=== PATIENT | female | born 1985 | race Caucasian/White ===

== ENCOUNTER 2019-12-14 10:15 | Emergency (ER) | payer OTHER ==
[~2019-12-14] VITALS: Ht 165.1 cm; Wt 65.3 kg
[2019-12-14] MEDS ORDERED: KETOROLAC TROMETHAMINE 30 MG/ML VIAL IV STA (11:03)
[2019-12-14] MEDS ORDERED: KETOROLAC TROMETHAMINE 30 MG/ML VIAL ONE (11:17)
--- NOTE | 2019-12-14 11:23 | Diagnostic Imaging Report ---
EXAMINATION: PA and lateral views of the chest. COMPARISON: None CLINICAL HISTORY: Chest pain DISCUSSION: The lungs are well inflated. No focal airspace consolidation, pleural effusion, or pneumothorax. Cardiomediastinal contour and pulmonary vasculature are within normal limits. No acute osseous abnormalities. IMPRESSION: No acute cardiopulmonary abnormalities. Signed by: Dr. Ernie Irving M.D. on 12/14/2019 11:20 AM
--- NOTE | 2019-12-14 12:22 | Emergency Department Note ---
History of Present Illnes History of Present Illness Chief Complaint: Chest Pain History of Present Illness This is a 34 year old female, history of gastric bypass, who presents with onse t of midsternal chest pain that started last night. She describes the pain as feeling "like someone is pushing in on her chest." She states that it's intermittent, last for 10- 15 minutes, and then resolves. She's also noted a "burning sensation" in the left upper back area. There is no pleuritic chest pain. She denies palpitations, cough, or shortness of breath. She states she has felt a bit lightheaded, and had some nausea last night. She denies current nausea. She also denies any current upper respiratory symptoms including no cough, nasal congestion, runny nose, vomiting, diarrhea, or abdominal pain. Patient has no personal or family history of heart disease Historian: Patient Arrival Mode: Car Past Medical/Family History Physician Review I have reviewed the patient's past medical and family history. Any updates have been documented here. Past Medical History Recent Fever: No Clinical Suspicion of Infectio: Yes New/Unexplained Change in Ment: No Past Medical History: None, Anemia Past Surgical History: Bariatric Surgery Other Surgery: gastric bypass - 07/2018 Transfusion of PRBCs - 4 units in 07/2018, due to "complications from gastric bypass surgery. Social History Smoking Cessation: Never Smoker Counseling Performed: No Alcohol Use: None Any Illegal Drug Use: No TB Exposure/Symptoms: No Physically hurt or threatened: No Family History Family history of heart diseas: No Other Any Pre-Existing Lines (PICC,: No Is patient up to date on immun: No Review of Systems Review of Systems Constitutional: Reports malaise; Denies chills, Denies fever EENTM: Reports other (loss of sense of taste and smell x 5 days) Cardiovascular: Reports chest pain; Denies palpitations Respiratory: Denies chest congestion, Denies cough, Denies pain with cough, Denies dyspnea, Denies dyspnea on exertion Gastrointestinal: Reports no symptoms; Denies abdominal pain, Denies nausea, Denies vomiting Genitourinary: Reports no symptoms Musculoskeletal: Reports muscle pain (myalgias x 6 days;) Integumentary: Reports no symptoms Neurological: Reports headache (mild, intermittent x 6 days;) Psychological: Reports no symptoms Endocrine: Reports no symptoms Hematological/Lymphatic: Reports no symptoms Review of other systems: All other systems negative Physical Exam Related Data Allergies: Coded Allergies: No Known Allergies (Unverified , 12/14/19) Vital signs reviewed: Yes Physical Exam CONSTITUTIONAL Constitutional: Present well-developed, Present well-nourished, Present other (pale appearing); Absent distressed, Absent ill appearing HENT HENT: Present normocephalic, Present atraumatic, Present oropharynx clear/moist, Present nose normal HENT L/R: Present left ext ear normal, Present right ext ear normal EYES Eyes: Reports PERRL, Reports conjunctivae normal NECK Neck: Present ROM normal; Absent cervical adenopathy PULMONARY Pulmonary: Present effort normal, Present breath sounds normal; Absent rhonchi CARDIOVASCULAR Cardiovascular: Present regular rhythm, Present heart sounds normal, Present capillary refill normal, Present normal rate; Absent murmur GASTROINTESTINAL Abdominal: Present soft, Present nontender, Present bowel sounds normal GENITOURINARY Genitourinary: Present exam deferred SKIN Skin: Present warm, Present dry MUSCULOSKELETAL Musculoskeletal: Present ROM normal NEUROLOGICAL Neurological: Present alert, Present oriented x 3, Present no gross motor or sensory deficits PSYCHOLOGICAL Psychological: Present mood/affect normal, Present judgement normal Results Laboratory Laboratory CBC - WBC - 1.8, H/H 10.3/31.9, plt = 148,; repeated x 2; sample sent to the [facility] to run and verify. Repeat CBC = WBC = 1.57, H/H = 10/32.4, plt = 166, Neut = 40.7, ANC = 643; Cardiacs - nl [place] - nl except for K+ = 3.2; Hepatic - nl except for AST = 43; Flu A/B - negative; UA - negative; UPT - negative; Lab results reviewed: Yes Imaging Imaging results reviewed: Yes Impressions [place] [id number] Patient Name: DEBBIE SANZ MR #: [id number] : 1985 Age/Sex: 34/F Req #: [id number] Adm Physician: Ordered by: FARHAN JAMA MD Report #: [id number] Location: [facility] Room/Bed: Procedure: [id number] HOPD/CXR 2 VIEW - HOPD Exam Date: 12/14/19 Exam Time: 1100 REPORT STATUS: Signed EXAMINATION: PA and lateral views of the chest. COMPARISON: None CLINICAL HISTORY: Chest pain DISCUSSION: The lungs are well inflated. No focal airspace consolidation, pleural effusion, or pneumothorax. Cardiomediastinal contour and pulmonary vasculature are within normal limits. No acute osseous abnormalities. IMPRESSION: No acute cardiopulmonary abnormalities. Signed by: Dr. Ronald Gallo M.D. on 12/14/2019 11:20 AM Dictated By: RONALD GALLO MD 1120 Transcribed By: GREG on 12/14/19 1120 COPY TO: FARHAN JAMA MD~ Diagnostics Tests Diagnostic test(s) reviewed: Yes Procedures 12 Lead ECG Interpretation ECG Interpretation : ECG: ECG 1 Quality And Reliability Engineer: Interpreted by ED physician Date: Dec 14, 2019 Time: 10:21 Prior ECG tracings: reviewed Rhythm: sinus rhythm Rate: normal QRS axis: normal ST segments normal: Yes T waves normal: No T waves flattening: III, V2, V3 Clinical Impression: abnormal ECG Assessment & Plan Medical Decision Making MDM - Chest pain resolved with Toradol, and cardiac workup negative. Patient's HEART score was 1, so she is at low risk of MACE. Pain is also reproducible. We'll treat with naproxen, if tolerated. - Discussed the patient, at length, that she has a low white blood cell count, likely due to Covid 19 infection. A Covid test was done and pending. She is not neutropenic, but explained that she is at increased risk of developing a secondary infection, in addition to the probable Covid infection. Stressed the importance of having her blood work repeated, once her symptoms have completely resolved for at least 72 hours, and 10 days from the onset of symptoms. Patient strongly encouraged self quarantine to stay away from all others, as much as possible until she has been symptom free for at least 72 hours. Patient voiced understanding of the plan. Drink plenty of water, with a goal of at least 8 bottles/day. Take the Naproxen, as needed, for the muscular pain in your chest and back. Discontinue this medication, if you develop pain in your stomach, while taking. Take with food. Follow-up with your doctor in 10 - 14 days, or whenever you have been at least 72 hours/3 days without ANY symptoms, to have your blood work re-checked (CBC, to check WBC count and anemia). *You Potassium was a bit low, so try and increase "Potassium Rich" foods in your diet. Return to the ER, if you develop shortness of breath or difficulty breathing. Assessment & Plan Final Impression: (1) Suspected COVID-19 virus infection (2) Chest pain, musculoskeletal (3) Acute viral syndrome (4) Leukopenia (5) Anemia Depart Disposition: HOME, SELF-skilled nursing Meds Active Scripts Naproxen (NAPROXEN) 250 Mg Tablet, 500 MG PO BID PRN for pain, #30 TAB 0 Refills Take with food. Prov:FARHAN JAMA MD 12/14/19 Medications in the ED Ketorolac Tromethamine 30 mg ONCE STAT IV Last administered on 12/14/19at 11:14; Admin Dose 30 MG; Start 12/14/19 at 11:03; Stop 12/14/19 at 11:05; Status DC Ketorolac Tromethamine 30 mg STK-MED ONCE .ROUTE ; Start 12/14/19 at 11:17; Stop 12/14/19 at 11:13; Status DC FARHAN JAMA MD Dec 14, 2019 12:22
[2019-12-14 12:29] LABS: HEMATOCRIT 32.4 % (34.2-44.1); LYMPHOCYTES # (AUTO) 0.8 (1.0-3.2); LYMPHOCYTES % 52.9 % (18.0-39.1); MEAN CORPUSCULAR HEMOGLOBIN 24.6 pg (28-32); MEAN CORPUSCULAR HGB CONC 30.9 g/dL (31-35); MEAN CORPUSCULAR VOLUME 79.6 fL (81-99); MONOCYTES # (AUTO) 0.1 (0.2-0.8); MONOCYTES % 6.4 % (4.4-11.3); NEUTROPHILS # (AUTO) 0.6 (2.1-6.9); NEUTROPHILS % 40.7 % (38.7-80.0); PLATELET COUNT 166 x10e3/uL (140-360); RED BLOOD COUNT 4.07 x10e6/uL (3.6-5.1); RED CELL DISTRIBUTION WIDTH 15.4 % (11.7-14.4)
[2019-12-14] MEDS ORDERED: NAPROXEN250 MG PO (12:32)
[2019-12-14 13:05] VITALS: BP 140/95
[2019-12-14 13:15] LABS: LYMPHOCYTES % (MANUAL) 50 % (19-48); MONOCYTES % (MANUAL) 8 % (3.4-9.0); NEUTROPHILS % (MANUAL) 42 % (40-74)
== END 2019-12-14 12:58 | disposition home or self-care (01) ==
LOC: FSED 11:20
DX: B34.9 Viral infection, unspecified (principal); R07.89 Other chest pain; D72.819 Decreased white blood cell count, unspecified; D64.9 Anemia, unspecified; Z98.84 Bariatric surgery status
CPT/HCPCS: 36415; 71046; 80048; 80076; 81003; 81025; 82553; 84484; 85025; 87400; 93005; 99284; J1885; U0002

== ENCOUNTER 2019-12-24 00:39 | Inpatient (IN) | payer OTHER ==
[~2019-12-24] VITALS: Ht 165.1 cm; Wt 65.3 kg
[~2019-12-24 00:39] MED LIST: NAPROXEN250 MG PO
[2019-12-24] MEDS ORDERED: PANTOPRAZOLE 40 MG 10ML VIAL IV STA (01:08)
[2019-12-24] MEDS ORDERED: ONDANSETRON HCL INJ 2MG/ML 2ML 2 MG/ML VIAL IV STA (01:08)
[2019-12-24] MEDS ORDERED: DICYCLOMINE HCL 20 MG/2 ML VIAL IM ONE (01:15)
[2019-12-24 01:26] LABS: BASOPHILS % 0.2 % (0.0-1.0); EOSINOPHILS % 0.4 % (0.0-6.0); HEMATOCRIT 34.5 % (34.2-44.1); HEMOGLOBIN 10.4 g/dL (12.0-16.0); LYMPHOCYTES # (AUTO) 1.7 (1.0-3.2); MEAN CORPUSCULAR HEMOGLOBIN 24.4 pg (28-32); MEAN CORPUSCULAR HGB CONC 30.1 g/dL (31-35); MEAN CORPUSCULAR VOLUME 80.8 fL (81-99); MONOCYTES # (AUTO) 0.4 (0.2-0.8); MONOCYTES % 6.3 % (4.4-11.3); NEUTROPHILS # (AUTO) 3.6 (2.1-6.9); NEUTROPHILS % 63.6 % (38.7-80.0); PLATELET COUNT 198 x10e3/uL (140-360); RED BLOOD COUNT 4.27 x10e6/uL (3.6-5.1); RED CELL DISTRIBUTION WIDTH 14.9 % (11.7-14.4)
[2019-12-24 01:42] LABS: AMYLASE 127 U/L (25-125); LIPASE 128 U/L (8-78)
[2019-12-24 01:45] LABS: ALANINE AMINOTRANSFERASE 96 IU/L (0-55); ALBUMIN 3.5 g/dL (3.5-5.0); ALKALINE PHOSPHATASE 127 IU/L (40-150); ANION GAP 10.9 mmol/L (8-16); BLOOD UREA NITROGEN 9 mg/dL (7-26); BUN/CREATININE RATIO 12 (6-25); CALCIUM 8.5 mg/dL (8.4-10.2); CARBON DIOXIDE 25 mmol/L (22-29); CHLORIDE 108 mmol/L (98-107); CREATININE, SERUM 0.75 mg/dL (0.57-1.11); EST GLOMERULAR FILTRATION RATE > 60 ML/MIN (60-); GLUCOSE 92 mg/dL (74-118); POTASSIUM 3.9 mmol/L (3.5-5.1); SODIUM 140 mmol/L (136-145)
[2019-12-24] MEDS ORDERED: MORPHINE SULFATE INJ 4 MG/ML INJ 1ML IV ONE (02:15)
[2019-12-24] MEDS ORDERED: SODIUM CHLORIDE 0.9% 1000ML 1,000 ML IV ONE (02:15)
--- NOTE | 2019-12-24 02:32 | Emergency Department Note ---
History of Present Illnes History of Present Illness Chief Complaint: Abdominal Complaints History of Present Illness This is a 34 year old female RUQ pain that started about 30 minutes ago. Patient states she ate a taco earlier today. Patient also states she had diarrhea prior to arrival.. Historian: Patient Arrival Mode: Car Onset (how long ago): hour(s) (1) Location: RUQ PAIN Quality: PAIN Radiation: Reports back Severity: moderate Onset quality: sudden Duration (how long): hour(s) (1) Progression: unchanged Chronicity: new Context: Denies recent illness Relieving factors: none Exacerbating factors: other (EATING) Associated symptoms: Reports denies other symptoms Past Medical/Family History Physician Review I have reviewed the patient's past medical and family history. Any updates have been documented here. Past Medical History Recent Fever: No Clinical Suspicion of Infectio: No New/Unexplained Change in Ment: No Past Medical History: Anemia Past Surgical History: Bariatric Surgery Other Surgery: gastric bypass - 07/2018Transfusion of PRBCs - 4 units in 07/2018, due to "complications fromgastric bypass surgery. Social History Smoking Cessation: Never Smoker Counseling Performed: No Any Illegal Drug Use: No Other Any Pre-Existing Lines (PICC,: No Review of Systems Review of Systems Constitutional: Reports no symptoms EENTM: Reports no symptoms Cardiovascular: Reports no symptoms Respiratory: Reports no symptoms Gastrointestinal: Reports as per HPI Genitourinary: Reports no symptoms Musculoskeletal: Reports no symptoms Integumentary: Reports no symptoms Neurological: Reports no symptoms Psychological: Reports no symptoms Endocrine: Reports no symptoms Hematological/Lymphatic: Reports no symptoms Physical Exam Related Data Allergies: Coded Allergies: No Known Allergies (Unverified , 12/14/19) Triage Vital Signs Vital Signs Date Time Temp Pulse Resp B/P (MAP) Pulse Ox O2 Delivery O2 Flow Rate FiO2 12/24/19 01:07 98.8 93 18 128/80 100 Room Air Vital signs reviewed: Yes Physical Exam CONSTITUTIONAL Constitutional: Present well-developed, Present well-nourished, Present distressed (MOD) HENT HENT: Present normocephalic, Present atraumatic, Present oropharynx clear/moist, Present nose normal HENT L/R: Present left ext ear normal, Present right ext ear normal EYES Eyes: Reports PERRL, Reports conjunctivae normal NECK Neck: Present ROM normal PULMONARY Pulmonary: Present effort normal, Present breath sounds normal CARDIOVASCULAR Cardiovascular: Present regular rhythm, Present heart sounds normal, Present capillary refill normal, Present normal rate GASTROINTESTINAL Abdominal: Present soft, Present bowel sounds normal, Present tender (MODERATE RUQ) GENITOURINARY Genitourinary: Present exam deferred SKIN Skin: Present warm, Present dry MUSCULOSKELETAL Musculoskeletal: Present ROM normal NEUROLOGICAL Neurological: Present alert, Present oriented x 3, Present no gross motor or sensory deficits PSYCHOLOGICAL Psychological: Present mood/affect normal, Present judgement normal Results Laboratory Result Diagram: 12/24/19 0115 12/24/19 0115 Laboratory Laboratory Tests Test 12/24/19 01:15 White Blood Count 5.69 x10e3/uL (4.8-10.8) Red Blood Count 4.27 x10e6/uL (3.6-5.1) Hemoglobin 10.4 g/dL (12.0-16.0) Hematocrit 34.5 % (34.2-44.1) Mean Corpuscular Volume 80.8 fL (81-99) Mean Corpuscular Hemoglobin 24.4 pg (28-32) Mean Corpuscular Hemoglobin Concent 30.1 g/dL (31-35) Red Cell Distribution Width 14.9 % (11.7-14.4) Platelet Count 198 x10e3/uL (140-360) Neutrophils (%) (Auto) 63.6 % (38.7-80.0) Lymphocytes (%) (Auto) 29.0 % (18.0-39.1) Monocytes (%) (Auto) 6.3 % (4.4-11.3) Eosinophils (%) (Auto) 0.4 % (0.0-6.0) Basophils (%) (Auto) 0.2 % (0.0-1.0) Neutrophils # (Auto) 3.6 (2.1-6.9) Lymphocytes # (Auto) 1.7 (1.0-3.2) Monocytes # (Auto) 0.4 (0.2-0.8) Eosinophils # (Auto) 0.0 (0.0-0.4) Basophils # (Auto) 0.0 (0.0-0.1) Absolute Immature Granulocyte (auto 0.03 x10e3/uL (0-0.1) Sodium Level 140 mmol/L (136-145) Potassium Level 3.9 mmol/L (3.5-5.1) Chloride Level 108 mmol/L (98-107) Carbon Dioxide Level 25 mmol/L (22-29) Anion Gap 10.9 mmol/L (8-16) Blood Urea Nitrogen 9 mg/dL (7-26) Creatinine 0.75 mg/dL (0.57-1.11) Estimat Glomerular Filtration Rate > 60 ML/MIN (60-) BUN/Creatinine Ratio 12 (6-25) Glucose Level 92 mg/dL (74-118) Calcium Level 8.5 mg/dL (8.4-10.2) Total Bilirubin 0.3 mg/dL (0.2-1.2) Aspartate Amino Transf (AST/SGOT) 291 IU/L (5-34) Alanine Aminotransferase (ALT/SGPT) 96 IU/L (0-55) Alkaline Phosphatase 127 IU/L (40-150) Total Protein 6.9 g/dL (6.5-8.1) Albumin 3.5 g/dL (3.5-5.0) Globulin 3.4 g/dL (2.3-3.5) Albumin/Globulin Ratio 1.0 (0.8-2.0) Amylase Level 127 U/L (25-125) Lipase 128 U/L (8-78) Imaging Imaging results reviewed: Yes Impressions Procedure: [id number] US/US GALLBLADDER Exam Date: 12/24/19 Exam Time: 0350 REPORT STATUS: Signed EXAM: Right Upper Quadrant Ultrasound INDICATION: ^RUQ PAIN ^[id number] ^0350 COMPARISON: None. TECHNIQUE: Transverse and longitudinal images of the right upper abdomen were obtained. FINDINGS: Liver: Size: 13.0 cm in the right midclavicular line, normal Appearance: Normal echogenicity, smooth contour Mass: No focal masses Gallbladder: Stones/Sludge: Single 0.6 cm echogenic shadowing mobile stone in the gallbladder lumen. Wall: 0.3 cm Appearance: No wall thickening, pericholecystic fluid or hydrops. Sonographic Khalil's Sign: Negative Bile Ducts: Intrahepatic Ducts: No dilatation Extrahepatic Ducts: Common bile duct measures 0.3 cm, no dilatation Pancreas: Visualized portions of the pancreatic neck and proximal body are normal. Kidneys: Length: Right 12.6 cm Echogenicity: Normal Collecting System: No hydronephrosis Stone: None Cyst/Mass: None Vessels: Aorta: Visualized portions are normal Inferior Vena Cava: Visualized portions are normal Main Portal Vein: 0.9 cm, normal size with hepatopetal flow. Free Fluid: No ascites or pleural effusion IMPRESSION: 1. Cholelithiasis without evidence of cholecystitis. Signed by: Dr. Anny Vences M.D. on 12/24/2019 4:09 AM Dictated By: ANNY VENCES MD 8 Transcribed By: GREG on 12/24/19408 COPY TO: GÓMEZ SANTIAGO MD~ Assessment & Plan Medical Decision Making MDM PT WITH RUQ PAIN AFTER EATING A TACO CBC, CMP, AMYLASE, LIPASE, UA, GALL BLADDER ULTRASOUND ORDERED TO EVAL FOR ELEVATED LFT'S, PANCREATITIS, GALLSTONES. MORPHINE 4 MG IV ORDERED ZOFRAN 4 MG IV ORDERED BENTYL 20 MG IM ORDERED PROTONIX 40 MG IV ORDERED NS 1 LITER IV BOLUS ORDERED PT WITH UTI, GALLSTONES AND PANCREATITIS, I SPOKE WITH DR VICENTE AND DR Silvestre JIMENEZ ADMIT TO INPATIENT Assessment & Plan Final Impression: (1) UTI (urinary tract infection) (2) Acute gallstone pancreatitis Depart Disposition: ADMITTED Last Vital Signs Date Time Temp Pulse Resp B/P (MAP) Pulse Ox O2 Delivery O2 Flow Rate FiO2 12/24/19 01:37 75 20 114/71 100 12/24/19 01:07 98.8 Room Air Home Meds Active Scripts Naproxen (NAPROXEN) 250 Mg Tablet, 500 MG PO BID PRN for pain, #30 TAB 0 Refills Take with food. Prov:FARHAN JAMA MD 12/14/19 Medications in the ED Dicyclomine HCl 20 mg ONCE ONCE IM Last administered on 12/24/19at 01:46; Admin Dose 20 MG; Start 12/24/19 at 01:15; Stop 12/24/19 at 01:16; Status DC Ondansetron HCl 4 mg NOW STAT IV Last administered on 12/24/19at 01:46; Admin Dose 4 MG; Start 12/24/19 at 01:08; Stop 12/24/19 at 01:22; Status DC Pantoprazole Sodium 40 mg NOW STAT IV Last administered on 12/24/19at 01:46; Admin Dose 40 MG; Start 12/24/19 at 01:08; Stop 12/24/19 at 01:22; Status DC Sodium Chloride 1,000 ml @ 0 mls/hr Q0M ONCE IV Last administered on 12/24/19at 02:13; Admin Dose 999 MLS/HR; Start 12/24/19 at 02:15; Stop 12/24/19 at 02:18; Status DC Morphine Sulfate 4 mg ONCE ONCE IV ; Start 12/24/19 at 02:15; Stop 12/24/19 at 02:18; Status DC GÓMEZ SANTIAGO MD Dec 24, 2019 02:32
[2019-12-24 02:38] LABS: CLARITY,URINE CLOUDY (CLEAR); COLOR,URINE AMBER (YELLOW)
[2019-12-24 02:39] LABS: BACTERIA,URINE MANY /HPF; BILIRUBIN,URINE SMALL (NEGATIVE); EPITHELIAL CELLS,URINE MANY /LPF; KETONES,URINE TRACE (NEGATIVE); LEUKOCYTE ESTERASE ,URINE TRACE (NEGATIVE); NITRITE,URINE NEGATIVE (NEGATIVE); PROTEIN,URINE DIPSTICK NEGATIVE (NEGATIVE); URINE UROBILINOGEN 1 mg/dL (0.2 - 1); WBC,URINE (MAN) >50 /HPF (0-5)
[2019-12-24 02:40] LABS: PREGNANCY TEST, URINE NEGATIVE (NEGATIVE)
--- NOTE | 2019-12-24 04:12 | Diagnostic Imaging Report ---
EXAM: Right Upper Quadrant Ultrasound INDICATION: ^RUQ PAIN ^[id number] ^0350 COMPARISON: None. TECHNIQUE: Transverse and longitudinal images of the right upper abdomen were obtained. FINDINGS: Liver: Size: 13.0 cm in the right midclavicular line, normal Appearance: Normal echogenicity, smooth contour Mass: No focal masses Gallbladder: Stones/Sludge: Single 0.6 cm echogenic shadowing mobile stone in the gallbladder lumen. Wall: 0.3 cm Appearance: No wall thickening, pericholecystic fluid or hydrops. Sonographic Khalil's Sign: Negative Bile Ducts: Intrahepatic Ducts: No dilatation Extrahepatic Ducts: Common bile duct measures 0.3 cm, no dilatation Pancreas: Visualized portions of the pancreatic neck and proximal body are normal. Kidneys: Length: Right 12.6 cm Echogenicity: Normal Collecting System: No hydronephrosis Stone: None Cyst/Mass: None Vessels: Aorta: Visualized portions are normal Inferior Vena Cava: Visualized portions are normal Main Portal Vein: 0.9 cm, normal size with hepatopetal flow. Free Fluid: No ascites or pleural effusion IMPRESSION: 1. Cholelithiasis without evidence of cholecystitis. Signed by: Dr. Danyel Vences M.D. on 12/24/2019 4:09 AM
[2019-12-24] MEDS ORDERED: ONDANSETRON HCL INJ 2MG/ML 2ML 2 MG/ML VIAL IV PRN (04:45)
[2019-12-24] MEDS ORDERED: PIPER-TAZ 3.375 GM 50 ML ONE (05:06)
[2019-12-24] MEDS ORDERED: SODIUM CHLORIDE 0.9% 1000ML 1,000 ML ONE (05:06)
[2019-12-24] MEDS: PIPER-TAZ 3.375 GM / NS 50ML IV SCH ×3 (05:12→21:37)
[2019-12-24] MEDS: SODIUM CHLORIDE 0.9% 1000ML 1,000 ML IV SCH ×3 (05:12→23:35)
[2019-12-24 06:04] VITALS: BP 113/73
--- NOTE | 2019-12-24 06:05 | NUR ---
RECEIVED REPORT FROM SHAYNA ER NURSE. PATIENT ARRIVED VIA WHEELCHAIR. PATIENT IS A&OX3 AND AMBULATES. CALL LIGHT WITHIN REACH. PATIENT IN BED
[2019-12-24 06:20] VITALS: BP 113/73
--- NOTE | 2019-12-24 07:10 | NUR ---
GAVE REPORT TO ONCOMING NURSE. CALL LIGHT WITHIN REACH. PATIENT IN BED. HOURLY ROUNDING PERFORMED.
--- NOTE | 2019-12-24 07:19 | Pre Op History & Physical ---
CHIEF COMPLAINT: Abdominal pain. HISTORY OF PRESENT ILLNESS: The patient is a 34-year-old female, who presents with complaints of epigastric abdominal pain. She says the pain started yesterday. She said it was not severe, but now it is better. She came to the emergency room, evaluation revealed gallstones, also elevated amylase and lipase. She has had similar pains in the past, but never this severe. There were no symptoms of jaundice. PAST MEDICAL HISTORY: The patient denies chronic medical problems. She has had previous gastric bypass surgery. ALLERGIES: THERE ARE NO KNOWN ALLERGIES. MEDICATIONS: The only current medication is naproxen. FAMILY HISTORY: Noncontributory. SOCIAL HISTORY: The patient does not smoke cigarettes or drink alcohol. REVIEW OF SYSTEMS: As stated above, otherwise was negative. PHYSICAL EXAMINATION: GENERAL: The patient is awake and alert, in no distress. VITAL SIGNS: Normal. HEENT: Sclerae is not icteric. NECK: Supple. No masses. LUNGS: Equal breath sounds are clear bilaterally. CARDIAC: Regular rate and rhythm with no murmur. ABDOMEN: Mildly tender in the epigastrium. There is no distention. No mass. No organomegaly. EXTREMITIES: Have no edema. Pulses are palpable. NEUROLOGIC: Intact. LABORATORY TESTS: White blood cell count is normal, hemoglobin and hematocrit are 10.4 and 34.5. Chemistries, elevated amylase and lipase, slightly elevated AST and ALT. ASSESSMENT: A 34-year-old female with gallstone pancreatitis, which is mild. She is to be evaluated with MRCP. Seen in consultation by Gastroenterology, tentatively planned cholecystectomy to be done tomorrow. Procedure was explained to the patient including risks, benefits and alternatives. She understands. She has had the opportunity to ask questions. MD FE Bauer/RAVEN /[id number]
[2019-12-24] MEDS ORDERED: PNEUMOCOCCAL VACCINE POLYVALENT 23 MCG/0.5 ML VIAL IM SCH (07:20)
[2019-12-24 08:00] VITALS: BP 109/67
--- NOTE | 2019-12-24 08:00 | NUR ---
INIITAL ASSESSMENT COMPLETE, PT IS NPO PENDING MRI, IV INTACT, DR CRUZ HERE TO SEE PT, NO PAIN OR DISTRESS NOTED, CALL LIGHT IN REACH
--- NOTE | 2019-12-24 12:58 | Diagnostic Imaging Report ---
EXAMINATION: MRCP of the abdomen without contrast. INDICATION: GALLSTONE PANCREATITIS COMPARISON: Ultrasound abdomen dated 12/24/2019.. TECHNIQUE: Multiplanar and multisequence imaging was performed of the abdomen. MRCP sequences were also obtained.. IV Contrast: None Oral Contrast: None. Medications: None FINDINGS: Study is markedly degraded by motion artifact. LOWER THORAX: Unremarkable. HEPATOBILIARY: There is no hepatic steatosis. There are subcentimeter T2 hyperintense lesions in the segment 8 (series 5, image 5) and segment 4 (image 13) too small to adequately characterize could represent a cyst or hemangioma. No biliary ductal dilation. GALLBLADDER: There is 3 mm gallbladder polyp at the gallbladder neck (series 9, image 17). No radio-opaque stones or sludge. No wall thickening. SPLEEN: No splenomegaly. PANCREAS: No focal masses or ductal dilatation. No evidence of pancreatic inflammation or peripancreatic fluid. ADRENALS: No adrenal nodules KIDNEYS/URETERS: Kidneys enhance symmetrically. No hydronephrosis. No cystic or solid mass lesions. No stones. GI TRACT: No abnormal distention, wall thickening, or evidence of bowel obstruction. LYMPH NODES: No lymphadenopathy. VESSELS: Unremarkable. PERITONEUM / RETROPERITONEUM: No free air or fluid. BONES: There is a small hemangioma in L2 vertebral body. SOFT TISSUES: Unremarkable. IMPRESSION: Study is degraded by motion artifact. 3 mm gallbladder polyp. No cholelithiasis, choledocholithiasis, cholecystitis or pancreatitis. The reported 6 mm gallstone on ultrasound dated 12/24/2019 is not seen on this exam. Signed by: Philippe Burger MD on 12/24/2019 12:55 PM
[2019-12-24 16:00] VITALS: BP 108/76
--- NOTE | 2019-12-24 18:37 | NUR ---
VS WNL, CALL LIGHT IN REACH, REPORT GIVEN TO ON COMING NURSE, CONTINUE TO MONITOR CONDITION, PT IS NPO
--- NOTE | 2019-12-24 19:05 | NUR ---
RECEIVED REPORT FROM PREVIOUS NURSE. CALL LIGHT WITHIN REACH. PATIENT IN BED. ROUNDING PERFORMED.
[2019-12-24 19:33] VITALS: BP 108/76
[2019-12-24 20:30] VITALS: BP 119/73
[2019-12-24] MEDS: MORPHINE SULFATE INJ 4 MG/ML INJ 1ML IV PRN (23:30)
[2019-12-25] VITALS (8 sets, daily range): BP systolic 103–141; BP diastolic 58–80
[2019-12-25] MEDS: SODIUM CHLORIDE 0.9% 1000ML 1,000 ML IV SCH ×4 (04:45→22:44)
[2019-12-25 05:22] LABS: BASOPHILS % 0.5 % (0.0-1.0); HEMATOCRIT 27.3 % (34.2-44.1); HEMOGLOBIN 8.5 g/dL (12.0-16.0); LYMPHOCYTES # (AUTO) 1.5 (1.0-3.2); LYMPHOCYTES % 39.6 % (18.0-39.1); MEAN CORPUSCULAR HEMOGLOBIN 25.6 pg (28-32); MEAN CORPUSCULAR HGB CONC 31.1 g/dL (31-35); MEAN CORPUSCULAR VOLUME 82.2 fL (81-99); MONOCYTES # (AUTO) 0.3 (0.2-0.8); MONOCYTES % 6.5 % (4.4-11.3); NEUTROPHILS % 52.1 % (38.7-80.0); PLATELET COUNT 124 x10e3/uL (140-360); RED BLOOD COUNT 3.32 x10e6/uL (3.6-5.1); RED CELL DISTRIBUTION WIDTH 15.1 % (11.7-14.4)
[2019-12-25] MEDS: PIPER-TAZ 3.375 GM / NS 50ML IV SCH ×3 (06:10→22:44)
[2019-12-25 06:26] LABS: ALANINE AMINOTRANSFERASE 255 IU/L (0-55); ALBUMIN 2.8 g/dL (3.5-5.0); ALBUMIN/GLOBULIN RATIO 1.1 (0.8-2.0); ALKALINE PHOSPHATASE 127 IU/L (40-150); AMYLASE 62 U/L (25-125); ANION GAP 8.8 mmol/L (8-16); BLOOD UREA NITROGEN 5 mg/dL (7-26); BUN/CREATININE RATIO 7 (6-25); CALCIUM 7.7 mg/dL (8.4-10.2); CARBON DIOXIDE 24 mmol/L (22-29); CHLORIDE 111 mmol/L (98-107); EST GLOMERULAR FILTRATION RATE > 60 ML/MIN (60-); GLUCOSE 71 mg/dL (74-118); LIPASE 21 U/L (8-78); POTASSIUM 3.8 mmol/L (3.5-5.1); SODIUM 140 mmol/L (136-145)
[2019-12-25 06:57] LABS: FERRITIN 8.56 ng/mL (4.63-204.00)
--- NOTE | 2019-12-25 07:00 | NUR ---
RECEIVED PATIENT RESTING IN BED NO S/S OF DISTRESS. BED LOW, WHEELS LOCKED, SIDE RAILS X2. CALL LIGHT IN REACH WILL CONTINUE TO MONITOR PATIENT.
--- NOTE | 2019-12-25 07:15 | NUR ---
GAVE REPORT TO ONCOMING NURSE. CALL LIGHT WITHIN REACH. PATIENT IN BED. HOURLY ROUNDING PERFORMED
[2019-12-25] MEDS ORDERED: BUPIVACAINE HCL 0.5% INJ 30 ML VIAL INJ ONE (10:26)
--- NOTE | 2019-12-25 11:54 | NUR ---
PATIENT LEFT TO OR VIA BED AT THIS TIME IN STABLE CONDITION.
[2019-12-25] MEDS ORDERED: ONDANSETRON HCL INJ 2MG/ML 2ML 2 MG/ML VIAL IV PRN (13:00)
[2019-12-25] MEDS ORDERED: HYDROMORPHONE 1MG/1ML INJ ONE (13:16)
--- NOTE | 2019-12-25 13:24 | Operative Report ---
DATE OF PROCEDURE: 12/25/2019 SURGEON: Ernie Gallo MD PREOPERATIVE DIAGNOSIS: Lujay-ko-qimtngz cholecystitis. POSTOPERATIVE DIAGNOSIS: Ysipa-gt-[id number] cholecystitis. PROCEDURE: Diagnostic laparoscopy, laparoscopic cholecystectomy. HOME APPLIANCES MECHANIC: None. ANESTHESIA: General endotracheal. INDICATIONS AND FINDINGS: The patient is a 34-year-old female, who admitted to the hospital with complaints of epigastric abdominal pain. Workup revealed elevated amylase, lipase, as well as findings suggestive of cholecystitis with gallstones. At Surgery, the patient was found to have gallbladder was distended and edematous with changes of cholesterolosis. Cystic duct was about 3 mm in diameter. Common bile duct was about 6 mm in diameter. Liver, stomach, lower abdomen all appeared normal. TECHNIQUE: After adequate general endotracheal anesthesia, the patient is in supine position, and the abdomen was prepped and draped in sterile fashion with ChloraPrep solution. Skin in the umbilicus was infiltrated with 0.5% Marcaine. Incision was made in the umbilicus. Abdominal wall was elevated and Veress needle was introduced. Pneumoperitoneum was then created. A 10 mm trocar and cannula were then passed through the umbilical wound. Laparoscopic camera was introduced. Initial laparoscopy revealed the gallbladder to be edematous and distended, liver appeared normal, stomach was normal, though was somewhat obscured by adhesions from omentum; lower abdomen appeared normal. A 10 mm trocar and cannula were placed in epigastrium, two 5 mm trocars and cannulas were placed in the right upper quadrant, these were placed under direct vision. Fundus of the gallbladder was grasped, retracted superiorly. Neck of the gallbladder was grasped, retracted laterally. Peritoneum over the neck of the gallbladder was incised. The gallbladder-cystic duct junction was dissected free. Cystic artery was also dissected free. The neck of the gallbladder completely dissected free. The cystic duct was divided between hemoclips with three clips left on the common bile duct side. Cystic artery was also divided between hemoclips close to the gallbladder. The gallbladder was dissected free from the liver using scissors and electrocautery. Once it was entirely free, it was placed in an Endopouch and brought through the epigastric cannula. There were no stones palpable. Gallbladder bed was inspected for hemostasis, which was seen to be adequate. It was irrigated with saline. All of fluid aspirated, inspected once again for hemostasis, which was seen to be adequate. Instruments and cannulas were removed. Pneumoperitoneum was evacuated. Wounds were then closed, fascia in the umbilical and epigastrium closed with 0 Vicryl. Skin to all wounds closed with 4-0 Vicryl in subcuticular fashion. Dermabond and sterile dressing were applied. The patient tolerated the procedure well. Estimated blood loss was 10 mL. There were no complications. All counts were correct and the patient was taken to recovery room in satisfactory condition. MD FE Bauer/MODL /[id number]
[2019-12-25] MEDS ORDERED: FENTANYL CITRATE/PF 100MCG/2 ML INJ ONE ×2 (13:36→20:06)
--- NOTE | 2019-12-25 14:00 | NUR ---
PATIENT BACK FROM SURGERY. 4 LAP SITES TO ABDOMEN C/D/I WITH BANDAIDS. PATIENT ON REGULAR DIET. SCD'S IN PLACE BILATERALLY. CALL LIGHT IN REACH WILL CONTINUE TO MONITOR.
[2019-12-25] MEDS ORDERED: NEOSTIGMINE 1 MG/ML 10ML VIAL ONE (14:02)
[2019-12-25] MEDS ORDERED: KETOROLAC TROMETHAMINE 30 MG/ML VIAL ONE (14:02)
[2019-12-25] MEDS ORDERED: GLYCOPYRROLATE INJ 0.2 MG/ML VIAL ONE (14:02)
[2019-12-25] MEDS ORDERED: SEVOFLURANE INHAL SOLN 250 ML PEN BTL ONE (14:02)
[2019-12-25] MEDS ORDERED: DEXAMETHASONE SOD PHOS INJ 4 MG/ML VIAL ONE (14:02)
[2019-12-25] MEDS ORDERED: ROCURONIUM BROMIDE 10 MG/ML 5ML VIAL IV ONE (14:02)
[2019-12-25] MEDS ORDERED: ETOMIDATE 2 MG/ML 10 ML INJ IV ONE (14:02)
[2019-12-25] MEDS ORDERED: LIDOCAINE HCL 2% LOCAL INJ 5 ML SDV VIAL INJ ONE (14:02)
[2019-12-25] MEDS ORDERED: ONDANSETRON HCL INJ 2MG/ML 2ML 2 MG/ML VIAL ONE (14:02)
[2019-12-25] MEDS ORDERED: PROPOFOL IV EMULSION 10 MG/ML 20 ML VIAL ONE (14:02)
[2019-12-25] MEDS: MAGNESIUM/ALUMINUM/SIMETHICONE 30 ML UDC PO PRN (18:21)
[2019-12-25] MEDS: HYDROCODONE/APAP 5MG-325MG TAB PO PRN (18:21)
--- NOTE | 2019-12-25 19:15 | NUR ---
BEDSIDE SHIFT REPORT RECEIVED FROM DAY RN. PT IS ALERT AND ORIENTED X3. RESPIRATIONS ARE EVEN AND UNLABORED. 4 TROCHAR SITES DRY AND INTACT. PT REPORTS NOT HUNGRY. NURSE ENCOURAGE ORAL FLUIDS. NS INFUSING AT 100 ML/HR VIA 20G LT AC. SITE HEALTHY. CALL LIGHT WITHIN REACH. BED LOCKED AND IN LOW POSITION. SCD BRITNI ON. PT UP TO BATHROOM WITH ONE ASSIST. PT DENIES PAIN.
[2019-12-25] MEDS ORDERED: MIDAZOLAM HCL 2 MG/2 ML VIAL ONE (20:06)
[2019-12-25] MEDS: MORPHINE SULFATE INJ 4 MG/ML INJ 1ML IV PRN (22:39)
[2019-12-26] VITALS (8 sets, daily range): BP systolic 99–122; BP diastolic 67–77
[2019-12-26] MEDS: MAGNESIUM/ALUMINUM/SIMETHICONE 30 ML UDC PO PRN (01:15)
[2019-12-26 06:01] LABS: AMYLASE 82 U/L (25-125); LIPASE 20 U/L (8-78)
[2019-12-26] MEDS: PIPER-TAZ 3.375 GM / NS 50ML IV SCH ×3 (06:53→22:59)
--- NOTE | 2019-12-26 07:00 | NUR ---
RECEIVED PATIENT RESTING IN BED NO S/S OF DISTRESS. BED LOW, WHEELS LOCKED, SIDE RAILS X2. CALL LIGHT IN REACH WILL CONTINUE TO MONITOR PATIENT.
[2019-12-26] MEDS: CYANOCOBALAMIN INJ 1,000 MCG/ML VIAL IM SCH (08:11)
[2019-12-26] MEDS: MORPHINE SULFATE INJ 4 MG/ML INJ 1ML IV PRN ×2 (08:16→17:48)
[2019-12-26] MEDS: SODIUM CHLORIDE 0.9% 1000ML 1,000 ML IV SCH ×2 (11:54→20:32)
--- NOTE | 2019-12-26 18:25 | NUR ---
PATIENT PASSED GAS. NO BOWEL MOVEMENT SINCE SURGERY.
[2019-12-27] VITALS: BP 123/78
[2019-12-27] MEDS: MORPHINE SULFATE INJ 4 MG/ML INJ 1ML IV PRN (02:12)
[2019-12-27 04:00] VITALS: BP 111/78
[2019-12-27] MEDS: SODIUM CHLORIDE 0.9% 1000ML 1,000 ML IV SCH (06:35)
[2019-12-27] MEDS: PIPER-TAZ 3.375 GM / NS 50ML IV SCH (06:35)
[2019-12-27 07:50] VITALS: BP 111/77
[2019-12-27] MEDS: CYANOCOBALAMIN INJ 1,000 MCG/ML VIAL IM SCH (08:55)
[2019-12-27 09:08] VITALS: BP 111/77
[2019-12-27] MEDS: HYDROCODONE/APAP 5MG-325MG TAB PO PRN (09:13)
--- NOTE | 2019-12-27 10:14 | NUR ---
PATIENT TESTED POSITIVE FOR SARS-CoV-2, patient refuses to go to isolation, requested to be discharge, called Dr. Bruno, alteration specialist for Dr. Gallo, awaiting call back.
[2019-12-27] MEDS ORDERED: TYLENOL WITH C1 EACH PO (10:38)
--- OUTSIDE RECORDS SUMMARY | 2020-01-05 13:31 | XMS REPORT | Clinical Summary ---
Author Author [employer]) Organization [facility] [employer] [facility] Address Unknown Phone Unavailable Care Team Providers Care Controls Designer Name Role Phone PCP Unavailable Allergies No Known Allergies Medications End Date Status Medication Sig Dispensed Refills Start Date Active jeytoogz-axyj-xuf-folic Take 1 tablet 0 acid by mouth (LKBQOHNDSFBT-AOZA-TEPZDW daily. LS-FOLIC ACID) 3,500-18-0.4 unit-mg-mg Chew Active calcium carbonate-vitamin . 0 D2 500 mg(1,250mg) -200 unit tablet Active Problems Problem Noted Date Severe sepsis 08/02/2018 Chills (without fever) 08/02/2018 Fever 08/02/2018 Coagulopathy 08/02/2018 Anemia 08/02/2018 Thrombocytopenia 08/02/2018 Shock circulatory 08/01/2018 Pneumatosis intestinalis 08/01/2018 S/P gastric bypass at OSH, presented with leak, sepsi s 08/01/2018 Social History Date Tobacco Use Types Packs/Day Years Used Light Tobacco Smoker Cigarettes Smokeless Tobacco: Never Used Comments: pt states "maybe 4 cigarettes a year" Alcohol Use Drinks/Week oz/Week Comments Yes 2 Shots of 1.2 liquor Alcohol Habits Answer Date Recorded How often do you have a drink containing alcohol? Monthly or less 08/01/2018 How many drinks containing alcohol do you have on 1 or 2 08/01/2018 a typical day when you are drinking? How often do you have six or more drinks on one Never 08/01/2018 occasion? Sex Assigned at Date Recorded Not on file Industry Job Start Date Occupation Not on file Not on file Not on file Travel End Travel History Travel Start No recent travel history available. Last Filed Vital Signs Not on file Plan of Treatment Not on file Results Not on fileafter 12/23/2018 Insurance Payer Benefit Subscriber ID Type Phone Address Plan / Group MEDICAID - MEDICAID [employer] xxxxxxxxx [employer] MEDICAID MEDICAID xxxxxxxxx Medicaid OF [place] Advance Directives For more information, please contact: [facility] [address] [place] [address] [phone] Date Inactivated Comments Code Status Date Activated 08/07/2018 4:46 PM Full Code 08/01/2018 8:34 AM This code status was determined by: Patient
--- OUTSIDE RECORDS SUMMARY | 2020-01-05 13:32 | XMS REPORT | Summary of Care ---
Author Author [facility] Organization [facility] Address Unknown Phone Unavailable Care Team Providers Care Pneumatic Drum Sander Name Role Phone System, Pcp Not In PCP Reason for Visit * Reason Comments Hospital Follow-up abnormal wbc count Encounter Details Care Team Description Date Type Department Kye Tejada DO [address] [facility] [address] [place] [address] Hospital Follow-up (abnormal wbc count ) 12/20/2019 Office Visit [facility] Family Medicine [address] [facility] [address] [place] [address] Allergies No Known Allergiesdocumented as of this encounter (statuses as of 12/20/2019) Medications End Date Status Medication Sig Dispensed Refills Start Date Active Cholecalciferol (VITAMIN Take 1 Tab by 0 D OR) mouth daily. Active Multiple Take 2 Tabs 0 Vitamins-Minerals by mouth (CENTRUM ADULTS daily. OR)Indications: They are Indications: gummies They are gummies documented as of this encounter (statuses as of 12/20/2019) Active Problems Problem Noted Date Anemia 08/02/2018 Coagulopathy (HCCode) 08/02/2018 Fever 08/02/2018 Severe sepsis (HCCode) 08/02/2018 Thrombocytopenia (HCCode) 08/02/2018 Pneumatosis intestinalis 08/01/2018 S/P gastric bypass 08/01/2018 Shock circulatory (HCCode) 08/01/2018 documented as of this encounter (statuses as of 12/20/2019) Social History Date Tobacco Use Types Packs/Day Years Used Former Smoker 5 Smokeless Tobacco: Never Used Drinks/Week oz/Week Comments Alcohol Use <1/week Yes Sex Assigned at Date Recorded Not on file Industry Job Start Date Occupation Not on file Not on file Not on file Travel End Travel History Travel Start No recent travel history available. Date Recorded COVID-19 Exposure Response 12/19/2019 3:26 PM CDT In the last month, have you been in contact with No / Unsure someone who was confirmed or suspected to have Coronavirus / COVID-19? documented as of this encounter Last Filed Vital Signs Reading Time Taken Comments Vital Sign 115/79 12/20/2019 1:23 PM CDT Blood Pressure 61 12/20/2019 1:23 PM CDT Pulse - - Temperature 15 12/20/2019 1:23 PM CDT Respiratory Rate - - Oxygen Saturation - - Inhaled Oxygen Concentration 64.9 kg (143 lb) 12/20/2019 1:23 PM CDT Weight 167.6 cm (5' 6") 12/20/2019 1:23 PM CDT Height 23.08 12/20/2019 1:23 PM CDT Body Mass Index documented in this encounter Patient Instructions * Patient Instructions* Kye Tejada DO - 12/20/2019 1:20 PM CDT Pt here to establish care with concerns for abnornmal labs Had recent ER visit which showed low WBC count and anemia Will reorder labs to check CBC CMP TSH lipids, Vitamin D, B12 and iron Recommending to take Vitamin B12 and Iron supplements to help with anemia. Low WBC count could be incidental or fluke as previous WBCs have been normal in the past. documented in this encounter Progress Notes * Catalina Branch CMA - 12/20/2019 1:37 PM CDT Review of Systems General: negative Eyes: negative HEENT: negative Endocrine: negative CV: negative Respiratory: negative GI: negative Hematologic: negative : negative Musc/skel: negative Neurology: negative Skin/Breast: negative Allergic: negative Psych: negative * Kye Tejada DO - 12/20/2019 1:20 PM CDT SUBJECTIVE: Naomie Noel is a 34 y.o. female Patient presents today for a new patient vis it to establish care. Here previous PCP was nobody moved from the [place]. Went to the ER [facility] on Had chest congestion, headaches, and thought had covid, denies cough, had chills Hadl abs done found to have leukopenia Has not had any fevers, all other symptoms of headaches, and chest congestion villarreal s improved deneis any more chills Was found to be flu negative Was tested for COVID and was told was negative. EKG was normal. Pt had abrnormal labs of WBC <2, denies any recurrent infections. Previous WBCs were normal. Chief Complaint Patient presents with Hospital Follow-up abnormal wbc count Current medical issues are noted as below. Would like to discuss current issuesabnormal labs nothing at this office visit. Denies any recent hospitalizations, ER visits [facility] for a few hours, surgerie s or changes to medical history since last HMA. Had Chest xray which was clear Immunizations and flu shot are up to date. Cervical PAP screening is up to date 08/2019. Dental screening is up to date. Eye screening is recommended. Currently is a non-smoker. Currently drinks alcohol <1 glasses /week. Review of Systems: General: Denies fevers, chills, sweats Head: Denies headaches, trauma, dizziness Eyes: Denies eye pain, blurry vision, double vision, vision loss Ears: Denies ear pain, tinnitus, decreased hearing, hearing loss Oral/Throat: Denies sore throat, hoarseness, dysphagia, dysgeusia, teeth pain Cardio: Denies chest pain, shortness of breath, leg swelling, Chest congestion Pulm: Denies coughing, wheezing, increased sputum Abdomen: Denies abdominal pain, nausea, vommitting, diarreah Uro: Denies dysuria, urinary frequency, nocturia, bloody urine, discharge, flank pain Musculo: Denies back pain, neck pain, shoulder pain, knee pain, muscle pains, maria alejandra int pain Neuro: Denies headaches, dizziness, paresthesias, paresis, numbness and tingling Derm: Denies rash, bruising, bleeding, itching and abnormal discoloration Psych: Denies suicidal ideations, homicidal ideations, depressive symptoms, ADD symptoms All other 10 point ROS were negative Active Ambulatory Problems Diagnosis Date Noted No Active Ambulatory Problems Resolved Ambulatory Problems Diagnosis Date Noted No Resolved Ambulatory Problems Past Medical History: Diagnosis Date Obesity Family History Problem Relation Name Age of Onset Bipolar Disorder Mother High Blood Pressure Mother High Cholesterol Mother Past Surgical History: Procedure Laterality Date HX GASTRIC BYPASS SURGERY 2019 in [facility] HX TUBAL LIGATION Social History Socioeconomic History Marital status: Spouse name: Not on file Number of children: Not on file Years of education: Not on file Highest education level: Not on file Occupational History Occupation: provider Social Needs Financial resource strain: Not on file Food insecurity: Worry: Not on file Inability: Not on file Transportation needs: Medical: Not on file Non-medical: Not on file Tobacco Use Smoking status: Former Smoker Years: 5.00 Smokeless tobacco: Never Used Substance and Sexual Activity Alcohol use: Yes Comment: <1/week Drug use: Never Sexual activity: Yes Partners: Male control/protection: Surgical Comment: tubal ligation Lifestyle Physical activity: Days per week: Not on file Minutes per session: Not on file Stress: Not on file Relationships Social connections: Talks on phone: Not on file Gets together: Not on file Attends yarsani service: Not on file Active member of club or organization: Not on file Attends meetings of clubs or organizations: Not on file Relationship status: Not on file Intimate partner violence: Fear of current or ex partner: Not on file Emotionally abused: Not on file Physically abused: Not on file Forced sexual activity: Not on file Other Topics Concerns: Not on file Social History Narrative 5 kids Healthcare provider Recently moved from [place] 4-5 months ago. Outpatient Medications Prior to Visit Medication Sig Dispense Refill Cholecalciferol (VITAMIN D OR) Take 1 Tab by mouth daily. Multiple Vitamins-Minerals (CENTRUM ADULTS OR) Take 2 Tabs by mouth daily. I ndications: They are gummies No facility-administered medications prior to visit. There is no immunization history on file for this patient. OBJECTIVE: Vital Signs Height: 5' 6" (167.6 cm) Weight - Scale: 143 lb (64.9 kg) Pulse: 61 Respirations: 15 BP: 115/79 Height and Weight BSA (Calculated - sq m): 1.74 sq meters BMI (Calculated): 23.1 Predicted Body Weight: 130.73 Body mass index is 23.08 kg/m. Physical Exam: General: Pleasant, AAOx 3, No Acute Distress Head: Normocephalic Atraumatic Eyes: Extraocular Muscles Intact, Pupils Equally Reactive to Light Accomodation Ears: Tympanic membranes intact bilaterally Oral/Throat: No Pharyngeal irritation, tonsillar swelling, normal dentition Neck: No lymphadenopathy, thyromegally or JVD Cardio: S1S2 no murmurs, gallops, rubs, leg swelling Pulm: Clear to Auscultation, no wheezes, rales or ronchi Abd: Soft, non-tender, non-distended, bowel sounds present all 4 quadrants Psych: mood and affect appropriate Reviewed recent labs which does show WBC of 1.57 and Hgb of 10 ASSESSMENT/PLAN: Naomie was seen today for hospital follow-up. Diagnoses and all orders for this visit: Leukopenia, unspecified type - CBC W/AUTO DIFF WITH PLATELETS Iron deficiency anemia, unspecified iron deficiency anemia type - VITAMIN B12 & FOLIC ACID - IRON+TIBC+%SAT Preventative health care - CBC W/AUTO DIFF WITH PLATELETS - COMPREHENSIVE METABOLIC PANEL - LIPID PANEL - TSH REFLEX TO FREE T4 - VITAMIN D 25 HYDROXY Pt here to establish care with concerns for abnornmal labs Had recent ER visit which showed low WBC count and anemia Will reorder labs to check CBC CMP TSH lipids, Vitamin D, B12 and iron Recommending to take Vitamin B12 and Iron supplements to help with anemia. Low WBC count could be incidental or fluke as previous WBCs have been normal in the past. documented in this encounter Plan of Treatment Care Team Description Date Type Specialty Rome-Imelda Romano MD [address] [facility] 8th [address] [place], [place] [id number] 01/16/2020 Office Visit Bariatrics Order Schedule Name Type Priority Associated Diag noses Ordered: 12/20/2019 CBC W/AUTO DIFF WITH Lab Routine [facility] PLATELETS Leukopenia, unspecified type Ordered: 12/20/2019 COMPREHENSIVE METABOLIC Lab Routine [facility] PANEL Ordered: 12/20/2019 LIPID PANEL Lab Routine [facility] Ordered: 12/20/2019 TSH REFLEX TO FREE T4 Lab Routine [facility] Ordered: 12/20/2019 VITAMIN D 25 HYDROXY Lab Routine [facility] Ordered: 12/20/2019 VITAMIN B12 & FOLIC ACID Lab Routine Iron deficiency anemia, unspecified iron deficiency anemia type Ordered: 12/20/2019 IRON+TIBC+%SAT Lab Routine Iron deficiency anemia, unspecified iron deficiency anemia type Health Maintenance Due Date Last Done Comments TETANUS SHOT (ADULT) 1999 HIV SCREENING 2002 CERVICAL CANCER SCREENING 2005 3 YEAR FOLLOW UP FLU VACCINE > 6 MONTHS 01/06/2020 documented as of this encounter Results Not on filedocumented in this encounter Visit Diagnoses Diagnosis Leukopenia, unspecified type - Primary Iron deficiency anemia, unspecified iro n deficiency anemia type Preventative health care Routine general medical examination at a health care facility documented in this encounter Insurance Type Payer Benefit Subscriber ID Effective Phone Address Plan / Dates Group Medicaid [employer] - xxxxxxxxx 2018-P [address] [address] documented as of this encounter
--- OUTSIDE RECORDS SUMMARY | 2020-01-05 13:32 | XMS REPORT | Continuity of Care Document ---
Author Author [facility] t Organization [facility] Address [address] [place] [address] Phone Unavailable Care Team Providers Care Icing Mixer Name Role Phone NO, PCP PCP Unavailable RONALD VICENTE Attphys Unavailable Dennis Tejada DO Attphys Dre JAMA Attphys Unavailable Niall Zamora MD, Donnie Wright Attphys Porter Adler MD Attphys [phone] TAMIKO STARK Attphys Unavailable Florin Conley Attphys Unavailable RONALD VICENTE Admphys Unavailable LEE ADLER Admphys Unavailabl e Payers Payer Name Policy Type Policy Number Effective Date Expiration Date Rc [facility] [id number] 2018 00:00:00 [facility] Cdc Review [id number] [facility] Problems Condition Name Condition Details Condition Category Status Onset Date Resolution Date Last Treatment Date Treating Clinician Comments Source Severe sepsis Severe sepsis Disease Active 2018-08-02 00:00:00 [facility] Chills (without fever) Chills (without fever) Disease Active 2018-08-02 00:00:00 [facility] Fever Fever Disease Active 2018-08-02 00:00:00 [facility] Coagulopathy Coagulopathy Disease Active 2018-08-02 00:00:00 [facility] Anemia Anemia Disease Active 2018-08-02 00:00:00 [facility] Thrombocytopenia Thrombocytopenia Disease Active 2018-08-02 00:00:00 [facility] Shock circulatory Shock circulatory Disease Active 2018-08-01 00:00:00 [facility] Pneumatosis intestinalis Pneumatosis intestinalis Disease Acti ve 2018-08-01 00:00:00 [facility] S/P gastric bypass at OSH, presented with leak, sepsis S/P gastric bypass at OSH, presented with leak, sepsis Disease Active 2018-08-01 00:00:00 [facility] Musculoskeletal chest pain Problem Active [facility] Leukopenia Problem Active [facility] Acute viral syndrome Problem Active [facility] Suspected severe acute respiratory syndr ome coronavirus 2 (SARS-CoV-2) infection Problem Active [facility] Acute gallstone pancreatitis Problem Active [facility] Urinary tract infection Problem Active [facility] Allergies, Adverse Reactions, Alerts This patient has no known allergies or adverse reactions. Social History Social Habit Start Date Stop Date Quantity Comments Source History of tobacco use Cigarette Smoker [facility] Sex Assigned At [facility] History SDOH Alcohol Frequency 2018-08-01 00:00:00 2018-08-01 00:00:0 0 2 [facility] History SDOH Alcohol Std Drinks 2018-08-01 00:00:00 2018-08-01 00:00: 00 1 [facility] History SDOH Alcohol Binge 2018-08-01 00:00:00 2018-08-01 00:00:00 1 [facility] Tobacco Comment 2018-08-01 00:00:00 2018-08-01 00:00:00 pt state s "maybe 4 cigarettes a year" [facility] Status Start Date Stop Date Source Light tobacco smoker 2018-08-16 00:00:00 [facility] Medications Ordered Medication Name Filled Medication Name Start Date Stop Da te Current Medication? Ordering Clinician Indication Dosage Frequency Signature (SIG) Comments Components Source Naproxen Naproxen 2019-12-14 12:32:00 2019-12-27 00:00:00 No 500 Twice A Day as needed for Pain [facility] naruqsfv-aagv-cid-folic acid (MULTIVITAM DU-IGTB-ERPRUVIX-FOLIC ACID) 3,500-18-0.4 unit-mg-mg Chew 2018-08-01 11:46:56 Yes 1{tbl} QD Take 1 tablet by mouth daily. [facility] calcium carbonate-vitamin D2 500 mg(1,250mg) -200 unit table t 2018-08-01 11:46:56 Yes . [facility] Acetaminophen With Codeine (Tylenol With Codeine #3 Ta blet) 1 Each TABLET Acetaminophen With Codeine (Tylenol With Codeine #3 Tablet) 1 Each TABLET Yes 300 Every 4 Hours as needed for Pain [facility] Vital Signs Vital Name Observation Time Observation Value Comments Source Body Temperature 2019-12-27 09:08:00 98.1 [degF] [facility] BMI (Body Mass Index) 2019-12-24 06:20:00 24.0 kg/m2 [facility] Weight 2019-12-24 01:07:00 144 [lb_av] [facility] Weight 2019-12-14 10:17:00 144 [lb_av] [facility] BMI (Body Mass Index) 2019-12-14 10:17:00 24.0 kg/m2 [facility] Procedures Procedure Date / Time Performed Performing Clinician Rona hernandez US Gallbladder 2019-12-24 00:00:00 [facility] Magnetic resonance cholangiopancreatography (MRCP) wit hout contrast 2019-12-24 00:00:00 [facility] Plan of Care Planned Activity Planned Date Details Comments Source Instructions Cholelithiasis [facility] Instructions Pancreatitis [facility] Instructions Urinary Tract Infection - Women [facility] Encounters Start Date/Time End Date/Time Encounter Type Admission Type [facility] Facility Care Department Encounter ID Source 2019-12-27 08:05:00 2019-12-27 11:18:00 Discharged Inpatient 1 RONALD VICENTE [facility] [id number] [facility] 2019-12-20 13:12:56 2019-12-20 13:32:56 Office Visit Kye Sandoval [facility] [id number] 2019-12-14 11:20:00 2019-12-14 12:58:00 Departed Emergency Room FARHAN JAMA [facility] [id number] [facility] 2019-08-01 13:42:56 2019-08-01 14:27:07 Office Visit R Kyle Rodriguez [facility] [id number] 2019-07-04 14:57:45 2019-07-04 16:09:36 Office Visit Imelda Fortune [facility] [id number] 2019-02-07 12:37:32 2019-02-07 13:35:57 Office Visit Imelda Fortune [facility] [id number] Results Test Description Test Time Test Comments Results Result Comments Source Serum or plasma amylase measurement (enzymatic activit y/volume) 2019-12-26 05:05:00 Test Item Amylase Level (test code = 1798-8) 82 25-[address] [facility] lipase measurement (enzymatic activity/volume)2019-12-26 05:05:00* Test Item Value Reference Range Interpretation Comments Lipase (test code = 3040-3) 20 8-78 [facility] count (number/volume)2019-12-25 05:00:00* Test Item Value Reference Range Interpretation Comments White Blood Count (test code = 6690-2) 3.84 4.8-10.8 [facility] automated count (number/volume)2019-12-25 05:00:00* Test Item Value Reference Range Interpretation Comments Red Blood Count (test code = 789-8) 3.32 3.6-5.1 [facility] measurement (moles/volume)2019-12-25 05:00:00* Test Item Value Reference Range Interpretation Comments Hemoglobin (test code = 64807-6) 8.5 12.0-16.0 [facility] Center[facility] blood hematocrit (volume fraction)2019-12-25 05:00:00* Test Item Value Reference Range Interpretation Comments Hematocrit (test code = 4544-3) 27.3 34.2-44.1 [facility] Center[facility] erythrocyte mean corpuscular yomqht6535-18-85 05:00:00* Test Item Value Reference Range Interpretation Comments Mean Corpuscular Volume (test code = 787-2) 82.2 81-99 [facility] Center[facility] erythrocyte mean corpuscular hemoglobin (mass per erythrocyte)2019-12-25 05:00:00* Test Item Value Reference Range Interpretation Comments Mean Corpuscular Hemoglobin (test code = 785-6) 25.6 28-32 [facility] Center[facility] erythrocyte mean corpuscular hemoglobin concentration measurement (mass/volume)2019-12-25 05:00:00* Test Item Value Reference Range Interpretation Comments Mean Corpuscular Hemoglobin Concent (test code = 786-4) 31.1 31-35 [facility] CenterRDW WqxEd-Zwu1153-34-20 05:00:00* Test Item Value Reference Range Interpretation Comments Red Cell Distribution Width (test code = 70326-3) 15.1 11.7 -14.4 [facility] Center[facility] blood platelet count (count/volume)2019-12-25 05:00:00* Test Item Value Reference Range Interpretation Comments Platelet Count (test code = 777-3) 124 140360 [facility] CenterAutom[facility] blood segmented neutrophil count as percentage of total nkuqjmybgz7474-18-47 05:00:00* Test Item Value Reference Range Interpretation Comments Neutrophils (%) (Auto) (test code = 50590-1) 52.1 38.7-80.0 [facility] Center[facility] blood lymphocyte count as percentage ot total rfakshggns4236-51-29 05:00:00* Test Item Value Reference Range Interpretation Comments Lymphocytes (%) (Auto) (test code = 736-9) 39.6 18.0-39.1 [facility] Center[facility] blood monocyte count as percentage of total ndvuwcufbl8239-96-48 05:00:00* Test Item Value Reference Range Interpretation Comments Monocytes (%) (Auto) (test code = 5905-5) 6.5 4.4-11.3 [facility] Center[facility] blood eosinophil count as percentage of total zatqgneblf0864-62-54 05:00:00* Test Item Value Reference Range Interpretation Comments Eosinophils (%) (Auto) (test code = 713-8) 1.0 0.0-6.0 [facility] Center[facility] blood basophil count as percentage of total hhyzbwscjm8941-74-35 05:00:00* Test Item Value Reference Range Interpretation Comments Basophils (%) (Auto) (test code = 706-2) 0.5 0.0-1.0 [facility] CenterFluoroscopic procedure less than one hour wuyptyak8472-45-88 05:00:00* Test Item Value Reference Range Interpretation Comments IM GRANULOCYTES % (test code = IM GRANULOCYTES %) 0.3 0.0- 1.0 [facility] Center[facility] blood neutrophil count 2019-12-25 05:00:00* Test Item Value Reference Range Interpretation Comments Neutrophils # (Auto) (test code = 751-8) 2.0 2.1-6.9 [facility] Center[facility] lymphocytes count (number/volume) 2019-12-25 05:00:00* Test Item Value Reference Range Interpretation Comments Lymphocytes # (Auto) (test code = 81575-0) 1.5 1.0-3.2 [facility] CenterBlood monocytes automated count (number/volume)2019-12-25 05:00:00* Test Item Value Reference Range Interpretation Comments Monocytes # (Auto) (test code = 742-7) 0.3 0.2-0.8 [facility] CenterAutom[facility] blood eosinophil count 2019-12-25 05:00:00* Test Item Value Reference Range Interpretation Comments Eosinophils # (Auto) (test code = 711-2) 0.0 0.0-0.4 [facility] CenterAutomated blood basophil count (count/volume)2019-12-25 05:00:00* Test Item Value Reference Range Interpretation Comments Basophils # (Auto) (test code = 704-7) 0.0 0.0-0.1 [facility] CenterFluoroscopic procedure less than one hour jlcgvydl9222-76-83 05:00:00* Test Item Value Reference Range Interpretation Comments Absolute Immature Granulocyte (auto (lexi t code = Absolute Immature Granulocyte (auto) 0.01 0-0.1 [facility] CenterAutomated reticulocyte count as percentage of total dfdpgfrnksdu2001-80-98 05:00:00* Test Item Value Reference Range Interpretation Comments Percent Reticulocyte Count (test code = 23381-3) 1.1 0.8-[address] [facility] or plasma sodium measurement (moles/volume)2019-12-25 05:00:00* Test Item Value Reference Range Interpretation Comments Sodium Level (test code = 2951-2) 140 136-[address] [facility] [facility] or plasma potassium measurement (moles/volume)2019-12-25 05:00:00* Test Item Value Reference Range Interpretation Comments Potassium Level (test code = 2823-3) 3.8 3.5-5.[address] [facility] or plasma chloride measurement (moles/volume)2019-12-25 05:00:00* Test Item Value Reference Range Interpretation Comments Chloride Level (test code = 2075-0) 111 98-[address] [facility] or plasma carbon dioxide, total measurement (moles/volume)2019-12-25 05:00:00* Test Item Value Reference Range Interpretation Comments Carbon Dioxide Level (test code = 2028-9) 24 22-[address] [facility] or plasma anion gtv7926-74-64 05:00:00* Test Item Value Reference Range Interpretation Comments Anion Gap (test code = 21533-9) 8.8 8-[address] [facility] or plasma urea nitrogen measurement (mass/volume)2019-12-25 05:00:00* Test Item Value Reference Range Interpretation Comments Blood Urea Nitrogen (test code = 3094-0) 5 7-[address] [facility] or plasma creatinine measurement (mass/volume)2019-12-25 05:00:00* Test Item Value Reference Range Interpretation Comments Creatinine (test code = 2160-0) 0.70 0.57-1.[address] [facility] or plasma urea nitrogen/creatinine mass phxzw7171-85-32 05:00:00* Test Item Value Reference Range Interpretation Comments BUN/Creatinine Ratio (test code = 3097-3) 7 6-25 [facility] CenterEstimated glomerular filtration rate (GFR) qmrpxjrhdmuxr0131-27-87 05:00:00* Test Item Value Reference Range Interpretation Comments Estimat Glomerular Filtration Rate (test code = 348782009) > 60 >60 Ranges were taken from the National Kidney Disease Education Program and the [facility] literature.Reference ranges:60 or greater: Adndxe46-50 ( for 3 consecutive months): Chronic kidney disease 15 or less: Kidney failureVal Verde Regional Medical CenterGlucose yuasqzfvjpn7533-66-94 05:00:00* Test Item Value Reference Range Interpretation Comments Glucose Level (test code = JNE7196) 71 74-[address] [facility] or plasma calcium measurement (mass/volume)2019-12-25 05:00:00* Test Item Value Reference Range Interpretation Comments Calcium Level (test code = 14551-4) 7.7 8.4-10.[address] [facility] or plasma iron measurement (mass/volume)2019-12-25 05:00:00* Test Item Value Reference Range Interpretation Comments Iron Level (test code = 2498-4) 64 50-[address] [facility] or plasma iron binding capacity measurement (mass/volume)2019-12-25 05:00:00* Test Item Value Reference Range Interpretation Comments Total Iron Binding Capacity (test code = 2500-7) 323 261-[address] [facility] or plasma iron saturation measurement (mass fraction)2019-12-25 05:00:00* Test Item Value Reference Range Interpretation Comments Percent Iron Saturation (test code = 2502-3) 20 15-[address] [facility] or plasma transferrin measurement (mass/volume)2019-12-25 05:00:00* Test Item Value Reference Range Interpretation Comments Transferrin (test code = 3034-6) 231 180-[address] [facility] or plasma ferritin measurement (mass/volume)2019-12-25 05:00:00* Test Item Value Reference Range Interpretation Comments Ferritin (test code = 2276-4) 8.56 4.63-204.[address] [facility] or plasma total bilirubin measurement (mass/volume)2019-12-25 05:00:00* Test Item Value Reference Range Interpretation Comments Total Bilirubin (test code = 1975-2) 0.4 0.2-1.2 [facility] CenterFluoroscopic procedure less than one hour cngeusjm0146-82-93 05:00:00* Test Item Value Reference Range Interpretation Comments Aspartate Amino Transf (AST/SGOT) (test code = Aspartate Amino Transf (AST/SGOT)) 269 5-[address] [facility] or plasma alanine aminotransferase measurement (enzymatic activity/volume)2019-12-25 05:00:00* Test Item Value Reference Range Interpretation Comments Alanine Aminotransferase (ALT/SGPT) (test code = 1742-6) 255 0-[address] [facility] or plasma protein measurement (mass/volume)2019-12-25 05:00:00* Test Item Value Reference Range Interpretation Comments Total Protein (test code = 2885-2) 5.4 6.5-8.[address] or plasma albumin measurement (mass/volume)2019-12-25 05:00:00* Test Item Value Reference Range Interpretation Comments Albumin (test code = 1751-7) 2.8 3.5-5.0 [facility] CenterPlasma globulin measurement (mass/volume) 2019-12-25 05:00:00* Test Item Value Reference Range Interpretation Comments Globulin (test code = 29001-5) 2.6 2.3-3.[address] [facility] or plasma albumin/globulin mass qfeao4339-29-83 05:00:00* Test Item Value Reference Range Interpretation Comments Albumin/Globulin Ratio (test code = 1759-0) 1.1 0.8-2.[address] [facility] or plasma alkaline phosphatase measurement (enzymatic activity/volume)2019-12-25 05:00:00* Test Item Value Reference Range Interpretation Comments Alkaline Phosphatase (test code = 6768-6) 127 40-150 [facility] CenterBlood cobalamin (vitamin B12) measurement (mass/volume)2019-12-25 05:00:00* Test Item Value Reference Range Interpretation Comments Vitamin B12 Level (test code = 08649-5) [address] or plasma folate measurement (mass/volume)2019-12-25 05:00:00* Test Item Value Reference Range Interpretation Comments Folate (test code = 2284-8) 10.9 >3.0 A serum folate concentration of less than 3.1 ng/mL isconsidered to represent cl inical deficiency.Performed at: - [facility] [id number] Director: Salomón Singh MD, Phone: [phone] Army [facility] EC5350-87-15 12:30:00 [place] [address] Patient Name: DEBBIE SANZ MR #: [id number] : 1985 Age/Sex: 34/F Req #: [id number] Adm Physician: RONALD VICENTE MD Ordered by: GÓMEZ SANTIAGO MD Report #: [id number] Location: MED/SURG Room/Bed: 103-1 Procedure: [id number] MRI/MRI MRCP WO Exam Date: Exam Time: REPORT STATUS: Signed EXAMINATION: MRCP of the abdo men without contrast. INDICATION: GALLSTONE PANCREATITIS COMPARISON: Ultras ound abdomen dated 12/24/2019.. TECHNIQUE: Multiplanar and multisequence imagin g was performed of the abdomen. MRCP sequences were also obtained.. IV C ontrast: None Oral Contrast: None. Medications: None FINDINGS: Study is markedly degraded by motion artifact. LOWER THORAX: Unremarkable. H EPATOBILIARY: There is no hepatic steatosis. There are subcentimeter T2 hyper intense lesions in the segment 8 (series 5, image 5) and segment 4 (image 13) too small to adequately characterize could represent a cyst or hemangioma. No biliary ductal dilation. GALLBLADDER: There is 3 mm gallbladder polyp at t he gallbladder neck (series 9, image 17). No radio-opaque stones or sludge. N o wall thickening. SPLEEN: No splenomegaly. PANCREAS: No focal masses or ductal dilatation. No evidence of pancreatic inflammation or peripancreati c fluid. ADRENALS: No adrenal nodules KIDNEYS/URETERS: Kidneys en leti symmetrically. No hydronephrosis. No cystic or solid mass lesions. No stones. GI TRACT: No abnormal distention, wall thickening, or evidence of b owel obstruction. LYMPH NODES: No lymphadenopathy. VESSELS: Un remarkable. PERITONEUM / RETROPERITONEUM: No free air or fluid. BONES: There is a small hemangioma in L2 vertebral body. SOFT TISSUES: Unremarkab le. IMPRESSION: Study is degraded by motion artifact. 3 mm gallbladder polyp. No cholelithiasis, choledocholithiasis, cholecystitis or pa ncreatitis. The reported 6 mm gallstone on ultrasound dated 12/24/2019 is not s een on this exam. Signed by: Philippe Ward MD on 12/24/2019 12:55 PM Dictated By: PHILIPPE WARD MD 125 Transcribed By: GREG on 12/24/191254 COPY TO: GÓMEZ SANTIAGO MD Fluoroscopic procedure less than one hour ktijhgzt1876-04-61 05:10:00* Test Item Value Reference Range Interpretation Comments Coronavirus (PCR) (test code = Coronavirus (PCR)) DETECTED NOTD ETECTED SARS-COV-2 (COVID19), HIGHRISK, RT-PCRPositive (Detected) results are indicative of active infection with SARS-CoV-2. A positive result does not rule out bacter ial infection or co-infection with other viruses. Detection of SARS-CoV-2 viral RNA may not indicate that SARS-CoV-2 is the causative agent for clinical symptom s. Positive and negative predictive values of testing are highly dependent n pre valence. False Positive test results are more likely when prevalence is moderate to low.Testing performed on sample type which has not been specifically validat ed. FDA believes this sample type could be used for this testing. This report ma y be amended or corrected based on validation studies in progress.The expected r esult is negative (Not Detected).The SARS-CoV-2 test is intended for the qualita tive detection of nucleic acid from SARS-CoV-2 in upper and lower respiratory sp ecimens. Testing methodology is real-time RT-PCR utilizing the [facility] SARS-CoV-2 ki t distributed by [employer].Test results must be correlated with clinical presentation and evaluated in the context of other laboratory and epidemiologic data. Test pe rformance can be affected because the epidemiology and clinical spectrum of infe ction caused by SARS-CoV-2 is not fully known. For example, the optimum types of specimens to collect and when during the course of infection these specimens ar e most likely to contain detectable viral RNA may not be known.This test has not been Food and Drug Administration (FDA) cleared or approved and has been author ized by FDA under an Emergency Use Authorization (EUA). The test is only authori zed for the duration of the declaration that circumstances exist justifying the authorization of emergency use of in vitro diagnostic tests for detection and/or diagnosis of SARS-CoV-2 under section 564(b) of the Act, 21 U.S.C. section 360b bb-3(b)(1), unless the authorization is terminated or revoked sooner. [facility] are certified under the Clinical Laboratory Improvement Am endments of 1988 (CLIA), 42 U.S.C. section 263a, to perform high complexity test s.Testing performed by [facility] [id number] [place], [place] [id number] Director: Baltazar Mendoza M.D.CLIA # [id number] 3Results called to JEANNE GUEVARA at 0933 on 12/27/19 by Yunior Faust. RB [place].[facility] IFXGLZHAOHT0688-85-86 04:08:00 [facility] [address] [place] [address] Patient Name: DEBBIE SANZ MR #: [id number] : 1985 Age/Sex: 34/F Req #: [id number] Adm Physician: Ordered by: GÓMEZ SANTIAGO MD Report #: [id number] Location: ER Room/Bed: Procedure: [id number] US/US G ALLBLADDER Exam Date: 12/24/19 Exam Time: 349 REPORT STATUS: Signed EXAM: Right Upp er Quadrant Ultrasound INDICATION: RUQ PAIN [id number] C OMPARISON: None. TECHNIQUE: Transverse and longitudinal images of the right u pper abdomen were obtained. FINDINGS: Liver: Size: 13.0 cm in t he right midclavicular line, normal Appearance: Normal echogenicity, smooth co ntour Mass: No focal masses Gallbladder: Stones/Sludge: Single 0.6 cm e chogenic shadowing mobile stone in the gallbladder lumen. Wall: 0.3 cm Jaime earance: No wall thickening, pericholecystic fluid or hydrops. Sonographic M urphy's Sign: Negative Bile Ducts: Intrahepatic Ducts: No dilatation Ex trahepatic Ducts: Common bile duct measures 0.3 cm, no dilatation Pancreas: Visualized portions of the pancreatic neck and proximal body are normal. Kidneys: Length: Right 12.6 cm Echogenicity: Normal Nathanael ecting System: No hydronephrosis Stone: None Cyst/Mass: None Vessels: Aorta: Visualized portions are normal Inferior Vena Cava: Visualized portio ns are normal Main Portal Vein: 0.9 cm, normal size with hepatopetal flow. Free Fluid: No ascites or pleural effusion IMPRESSION: 1. Cholelit hiasis without evidence of cholecystitis. Signed by: Dr. Danyel mckenna M.D. on 12/24/2019 4:09 AM Dictated By: DANYEL NGUYEN MD Electronica lly Signed By: DANYEL NGUYEN MD on 12/24/19408 Transcribed By: GREG on 408 COPY TO: GÓMEZ SANTIAGO MD Urine color icfdlrtebxork2119-60-85 01:15:00* Test Item Value Reference Range Interpretation Comments Urine Color (test code = 5778-6) KALEE YELLOW [facility] ortijau0132-08-14 01:15:00* Test Item Value Reference Range Interpretation Comments Urine Clarity (test code = 51200-2) CLOUDY CLEAR [facility] gravity of Urine by Test strip 2019-12-24 01:15:00* Test Item Value Reference Range Interpretation Comments Urine Specific [place] (test code = 5811-5) >=1.030 1.010-1.02 5 [facility] pH measurement by automated test jfywm4595-38-03 01:15:00* Test Item Value Reference Range Interpretation Comments Urine pH (test code = 42871-6) 6 5-7 [facility] leukocyte esterase detection by kogpqmdx9767-45-70 01:15:00* Test Item Value Reference Range Interpretation Comments Urine Leukocyte Esterase (test code = 5799-2) TRACE NEGATIVE [facility] nitrite rimfaqihd2917-15-87 01:15:00* Test Item Value Reference Range Interpretation Comments Urine Nitrite (test code = 36145-5) NEGATIVE NEGATIVE [facility] protein measurement by test strip (mass/volume)2019-12-24 01:15:00* Test Item Value Reference Range Interpretation Comments Urine Protein (test code = 5804-0) NEGATIVE NEGATIVE [facility] glucose aswmjqsxu3993-36-83 01:15:00* Test Item Value Reference Range Interpretation Comments Urine Glucose (UA) (test code = 2349-9) NEGATIVE NEGATIVE [facility] ketones detection by automated test wekua8916-69-55 01:15:00* Test Item Value Reference Range Interpretation Comments Urine Ketones (test code = 46256-1) TRACE NEGATIVE [facility] urobilinogen measurement by test strip (mass/volume)2019-12-24 01:15:00* Test Item Value Reference Range Interpretation Comments Urine Urobilinogen (test code = 86546-0) 1 0.2-1 [facility] total bilirubin measurement (mass/volume)2019-12-24 01:15:00* Test Item Value Reference Range Interpretation Comments Urine Bilirubin (test code = 1978-6) SMALL NEGATIVE [facility] erythrocytes xymrapyme2886-02-11 01:15:00* Test Item Value Reference Range Interpretation Comments Urine Blood (test code = 38349-7) TRACE NEGATIVE [facility] CenterAutom[facility] urine sediment leukocyte count by microscopy (number/high power field)2019-12-24 01:15:00* Test Item Value Reference Range Interpretation Comments Urine WBC (test code = 5821-4) >50 0-5 [facility] CenterErythrocytes detection in urine sediment by light tbmdqtqfnf1170-06-22 01:15:00* Test Item Value Reference Range Interpretation Comments Urine RBC (test code = 24947-6) 11-20 0-5 [facility] CenterBacteria detection in urine sediment by light jpzjezzhvd6848-22-18 01:15:00* Test Item Value Reference Range Interpretation Comments Urine Bacteria (test code = 17967-3) MANY NONE [facility] CenterEpithelial cells detection in urine sediment by light eocyznlono1760-22-01 01:15:00* Test Item Value Reference Range Interpretation Comments Urine Epithelial Cells (test code = 57554-6) MANY NONE [facility] CenterUrine human chorionic gonadotropin (hCG) fsmdxipdd4373-99-05 01:15:00* Test Item Value Reference Range Interpretation Comments Urine Test (test code = 2106-3) NEGATIVE NEGATIVE [facility] leukocytes automated count (number/volume)2019-12-14 11:40:00* Test Item Value Reference Range Interpretation Comments White Blood Count (test code = 6690-2) 1.57 4.8-10.8 Results repeated and called to ADELSO VALDEZ at 1239 on 12/14/19 by Kermit powell. Read back and verified.[facility] erythrocytes automated count (number/volume)2019-12-14 11:40:00* Test Item Value Reference Range Interpretation Comments Red Blood Count (test code = 789-8) 4.07 3.6-5.1 [facility] Center[facility] hemoglobin measurement (moles/volume)2019-12-14 11:40:00* Test Item Value Reference Range Interpretation Comments Hemoglobin (test code = 52561-1) 10.0 12.0-16.0 [facility] CenterAutomated blood hematocrit (volume fraction)2019-12-14 11:40:00* Test Item Value Reference Range Interpretation Comments Hematocrit (test code = 4544-3) 32.4 34.2-44.1 [facility] CenterAutom[facility] erythrocyte mean corpuscular xcvsqs2630-94-04 11:40:00* Test Item Value Reference Range Interpretation Comments Mean Corpuscular Volume (test code = 787-2) 79.6 81-99 [facility] CenterAutom[facility] erythrocyte mean corpuscular hemoglobin (mass per erythrocyte)2019-12-14 11:40:00* Test Item Value Reference Range Interpretation Comments Mean Corpuscular Hemoglobin (test code = 785-6) 24.6 28-32 [facility] CenterAutom[facility] erythrocyte mean corpuscular hemoglobin concentration measurement (mass/volume)2019-12-14 11:40:00* Test Item Value Reference Range Interpretation Comments Mean Corpuscular Hemoglobin Concent (test code = 786-4) 30.9 31-35 [facility] CenterRDW ZgkYr-Bjz3758-94-09 11:40:00* Test Item Value Reference Range Interpretation Comments Red Cell Distribution Width (test code = 79877-9) 15.4 11.7 -14.4 [facility] CenterAutomated blood platelet count (count/volume)2019-12-14 11:40:00* Test Item Value Reference Range Interpretation Comments Platelet Count (test code = 777-3) 166 140-360 [facility] CenterAutomated blood segmented neutrophil count as percentage of total ssnjbqkzyd7726-80-18 11:40:00* Test Item Value Reference Range Interpretation Comments Neutrophils (%) (Auto) (test code = 07570-0) 40.7 38.7-80.0 [facility] CenterAutom[facility] blood lymphocyte count as percentage ot total tzhdpzilpj0886-41-96 11:40:00* Test Item Value Reference Range Interpretation Comments Lymphocytes (%) (Auto) (test code = 736-9) 52.9 18.0-39.1 [facility] CenterAutom[facility] blood monocyte count as percentage of total jtpkinxslu1008-98-55 11:40:00* Test Item Value Reference Range Interpretation Comments Monocytes (%) (Auto) (test code = 5905-5) 6.4 4.4-11.3 [facility] CenterAutom[facility] blood eosinophil count as percentage of total asobuaorls8328-60-62 11:40:00* Test Item Value Reference Range Interpretation Comments Eosinophils (%) (Auto) (test code = 713-8) 0.0 0.0-6.0 [facility] CenterAutom[facility] blood basophil count as percentage of total rhfpjmyzfu8260-67-63 11:40:00* Test Item Value Reference Range Interpretation Comments Basophils (%) (Auto) (test code = 706-2) 0.0 0.0-1.0 [facility] CenterFluoroscopic procedure less than one hour tatthkub0944-49-29 11:40:00* Test Item Value Reference Range Interpretation Comments IM GRANULOCYTES % (test code = IM GRANULOCYTES %) 0.0 0.0- 1.0 [facility] CenterAutomated blood neutrophil count 2019-12-14 11:40:00* Test Item Value Reference Range Interpretation Comments Neutrophils # (Auto) (test code = 751-8) 0.6 2.1-6.9 [facility] CenterBlood lymphocytes count (number/volume) 2019-12-14 11:40:00* Test Item Value Reference Range Interpretation Comments Lymphocytes # (Auto) (test code = 26595-6) 0.8 1.0-3.2 [facility] monocytes automated count (number/volume)2019-12-14 11:40:00* Test Item Value Reference Range Interpretation Comments Monocytes # (Auto) (test code = 742-7) 0.1 0.2-0.8 [facility] CenterAutdorothea dix hospitaled blood eosinophil count 2019-12-14 11:40:00* Test Item Value Reference Range Interpretation Comments Eosinophils # (Auto) (test code = 711-2) 0.0 0.0-0.4 [facility] basophil count (count/volume)2019-12-14 11:40:00* Test Item Value Reference Range Interpretation Comments Basophils # (Auto) (test code = 704-7) 0.0 0.0-0.1 [facility] CenterFluoroscopic procedure less than one hour eavhjtgb8017-98-61 11:40:00* Test Item Value Reference Range Interpretation Comments Absolute Immature Granulocyte (auto (lexi t code = Absolute Immature Granulocyte (auto) 0 0-0.1 [facility] CenterFluoroscopic procedure less than one hour svqcwoyq1487-23-44 11:40:00* Test Item Value Reference Range Interpretation Comments Differential Total Cells Counted (test code = Differen tial Total Cells Counted) 100 [facility] blood neutrophils/100 leukocytes 2019-12-14 11:40:00* Test Item Value Reference Range Interpretation Comments Neutrophils % (Manual) (test code = 44960-0) 42 40-74 [facility] blood lymphocytes/100 leukocytes 2019-12-14 11:40:00* Test Item Value Reference Range Interpretation Comments Lymphocytes % (Manual) (test code = 737-7) 50 19-48 [facility] blood monocytes/100 leukocytes 2019-12-14 11:40:00* Test Item Value Reference Range Interpretation Comments Monocytes % (Manual) (test code = 744-3) 8 3.4-9.0 [facility] CenterCXR 2 VIEW - [id number] 11:18:00 [facility] [address] [address] Patient Name: DEBBIE SANZ MR #: [id number] : 1985 Age/Sex: 34/F Req #: [id number] Adm Physician: Ordered by: FARHAN JAMA MD Report #: [id number] Location: [facility] Room/Bed: Procedure: [id number] [facility]: 12/14/19 Exam Time: 1100 REPORT STATUS: Signed EXAMINATION: PA and lateral views of the chest. COMPARISON: None CLINICAL HISTORY: Chest pain DISCUSSION: The lungs are well inflated. No focal ai rspace consolidation, pleural effusion, or pneumothorax. Cardiomediastina l contour and pulmonary vasculature are within normal limits. No acute osse ous abnormalities. IMPRESSION: No acute cardiopulmonary abnormalities. Signed by: Dr. Ronald Irving M.D. on 12/14/2019 11:20 AM D ictated By: RONALD IRVING MD 1120 COPY TO: ANA LUISA JMAA MD CT, FBGIBGB7018-01-29 13:51:00FINAL REPORT EXAM: CT Abdomen and Pelvis WITH contrast INDICATION: hx of bariatric surgery, hx of sepsis COMPARISON: CT abdomen and pelvis 08/02/2018TECHNIQUE: Abdomen and pelvis were scanned utilizing a multidetector helical scanner from the lung base to the pubic symphysis after administration of IV contrast. Coronal and sagittal reformations were obtained. Routine protocol was performed. Scan was performed when during portal venous phase. IV CONTRAST: 100 mL of Isovue-300 ORAL CONTRAST: Water COMPLICATIONS: None RADIATION DOSE: Total DLP: 1367.4 mGy*cm Estimated effective dose: (DLP x 0.015 x size factor) mSvThis exam was performed according to our departmental dose- optimization program, which includes automated exposure control, adjustment of the mA and/or kV according to patient size and/or use of iterative reconstruction technique. FINDINGS: LINES and TUBES: None. LOWER THORAX: Res olution of trace pleural effusions. HEPATOBILIARY: No focal hepatic lesions . No biliary ductal dilation. GALLBLADDER: No radio-opaque stones or sludge. N o wall thickening. SPLEEN: Mildly enlarged measuring 13.3 cm in length. PANCREA S: No focal masses or ductal dilatation. ADRENALS: No adrenal nodules KIDN EYS/URETERS: Kidneys enhance symmetrically. No hydronephrosis. No cystic or machelle id mass lesions. No stones. GI TRACT: Status post Meilssa-en-Y gastric bypass. Dec reased size of the loculated air and fluid containing collection abutting the fine ture line near the GE junction under the left hemidiaphragm. Collection currentl y measures approximately 1.2 x 1.4 x 3 cm, previously 4.8 x 4.7 x 5.4 cm. No new collections. No abnormal distention, wall thickening, or evidence of bowel obst ruction. Appendix is normal. PELVIC ORGANS/BLADDER: Tubal ligation clips. Otherwise, unremarkable. LYMPH NODES: No lymphadenopathy. VESSELS: Unremarkable. PERITONEUM / RETROPERITONEUM: No free air or fluid. BONES: Unremarkable. SOFT T ISSUES: Midline laparotomy scar. IMPRESSION: 1.Melissa-en-Y gastric byp ass with decreasing loculated air-fluid containing collection.2.Resolution of tr hawk pleural effusions. Signed: Swanson, Jg MDReport Verified Date/Time: 08/05 13:51:25 Electronically signed by: JG SWANSON MD on 2018 01:51 PM BLOOD [id number] 14:34:00* Test Item Value Reference Range Interpretation Comments CULTURE (BEAKER) (test code = 1095) A From Aerobic And Anaerobic Bottles Same organism has been isolated from culture(s) of the same body site collected on a prior date. Repeat identification performed only after consultation with the clinical microbiology laboratory.Refer to previous culture of* - Lactobacillus species GRAM STAIN RESULT (BEAKER) (test code = 1123) From aer obic and anaerobic bottles: gram positive rods BLOOD [id number] 14:01:00* Test Item Value Reference Range Interpretation Comments CULTURE (BEAKER) (test code = 1095) LACTOBACILLUS SPECIES A From Aerobic And Anaerobic Bottles Lactobacillus speciesSusceptibility performed by:* - [facility] Clindamycin (test code = 10) mcg/mL S Gentamicin (test code = 18) mcg/mL Penicillin (test code = 235) mcg/mL S Vancomycin (test code = 13) mcg/mL Dose Depende nt Susceptible <=2 mcg/mL, Intermediate >2 mcg/m R GRAM STAIN RESULT (BEAKER) (test code = 1123) From aer obic bottle only: gram positive rods GRAM STAIN RESULT (BEAKER) (test code = 080318) From a naerobic bottle only: gram positive rods Susceptibity performed by [address] [place] [address]Uzzxz: bLOOD [id number] 11:02:00* Test Item Value Reference Range Interpretation Comments CULTURE (BEAKER) (test code = 1095) No growth in 5 days BLOOD [id number] 11:02:00* Test Item Value Reference Range Interpretation Comments CULTURE (BEAKER) (test code = 1095) No growth in 5 days BLOOD [id number] 10:18:00* Test Item Value Reference Range Interpretation Comments CULTURE (BEAKER) (test code = 1095) A From Anaerobic Bottle Only Parvimonas micra GRAM STAIN RESULT (BEAKER) (test code = 1123) From matthew erobic bottle only: gram positive coccobacilli BLOOD [id number] 01:01:00* Test Item Value Reference Range Interpretation Comments CULTURE (BEAKER) (test code = 1095) No growth in 5 days BLOOD CULTURE IDENTIFICATION [id number] 03:26:00* Test Item Value Reference Range Interpretation Comments LISTERIA MONOCYTOGENES (test code = 0129668) Not detected Not detec joseph STAPHYLOCOCCUS (test code = 6789698) Not detected Not detected STAPHYLOCOCCUS AUREUS (test code = 6796983) Not detected Not detect ed STREPTOCOCCUS (test code = 5043834) Not detected Not detected STREPTOCOCCUS AGALACTIAE (GROUP B) (test code = 8213708) Not detected Not detected STREPTOCOCCUS PNEUMONIAE (test code = 2916519) Not detected Not det ected STREPTOCOCCUS PYOGENES (GROUP A) (test code = 6682295) Not d etected Not detected ACINETOBACTER BAUMANNII (test code = 0460800) Not detected Not dete cted HAEMOPHILUS INFLUENZAE (test code = 4178398) Not detected Not detec joseph NEISSERIA MENINGITIDIS (test code = 0881711) Not detected Not detec joseph ENTEROBACTERIACEAE (test code = 9949338) Not detected Not detected ENTEROBACTER CLOACOE COMPLEX (test code = 7223804) Not detected Not detected KLEBSIELLA OXYTOCA (test code = 3189628) Not detected Not detected KLEBSIELLA PNEUMONIAE (test code = 1650) Not detected Not detected PROTEUS (test code = 0039535) Not detected Not detected SERRATIA MARCESCENS (test code = 7815543) Not detected Not detected SRIDHAR ALBICANS (test code = 2692929) Not detected Not detected SRIDHAR GLABRATA (test code = 5466667) Not detected Not detected SRIDHAR KRUSEI (test code = 4055397) Not detected Not detected SRIDHAR PARAPSILOSIS (test code = 8607032) Not detected Not detecte d SRIDHAR TROPICALIS (test code = 5791875) Not detected Not detected ESCHERICHIA COLI (test code = 2458866) Not detected Not detected METHICILLIN-RESISTANCE GENE (test code = 2935469) Not detected VANCOMYCIN-RESISTANCE GENE (test code = 0099902) Not d etected CARBAPENEM-RESISTANCE GENE (test code = 0631705) Not d etected ENTEROCOCCUS-BEAKER (test code = 0424339) Not detected Not detected PSEUDOMONAS AERUGINOSA-BEAKER (test code = 7439542) Not detected No t detected Other bacteria and resistance markers not targeted by this PCR panel cannot be e xcluded; therefore clinical correlation and follow up of serology, culture resul ts, and other molecular studies is required. The results are not intended to be used as the sole means for clinical diagnosis or patient management decisions. T his sample was tested at the [facility] using the [employer] Blood Culture ID Panel. It is FDA cleared and has been verified and approved by the [facility] for clinical use. Thi s laboratory is CLIA-certified and [employer] ([employer])-accred ited to perform high complexity testing.CBC W/PLT COUNT & AUTO DIFFERENTIAL 2018-08-07 13:28:00* Test Item Value Reference Range Interpretation Comments WHITE BLOOD CELL COUNT (BEAKER) (test code = 775) 7.3 K/ L 3.5- 10.5 RED BLOOD CELL COUNT (BEAKER) (test code = 761) 3.39 M/ L 3.93-5 .22 L HEMOGLOBIN (BEAKER) (test code = 410) 7.7 GM/DL 11.2-15.7 L HEMATOCRIT (BEAKER) (test code = 411) 25.8 % 34.1-44.9 L MEAN CORPUSCULAR VOLUME (BEAKER) (test code = 753) 76.1 fL 79. 4-94.8 L MEAN CORPUSCULAR HEMOGLOBIN (BEAKER) (test code = 751) 22.7 pg 25.6-32.2 L MEAN CORPUSCULAR HEMOGLOBIN CONC (BEAKER) (test code = 752) 29.8 GM/DL 32.2-35.5 L RED CELL DISTRIBUTION WIDTH (BEAKER) (test code = 412) 20.8 % 11.7-14.4 H PLATELET COUNT (BEAKER) (test code = 756) 161 K/CU MM 150-450 MEAN PLATELET VOLUME (BEAKER) (test code = 754) fL 9.4-12 .3 Unable to report due to abnormal Platelet population distribution. NUCLEATED RED BLOOD CELLS (BEAKER) (test code = 413) 1 /100 WBC 0 -0 H (MANUAL DIFFERENTIAL)2018-08-07 13:28:00* Test Item Value Reference Range Interpretation Comments NEUTROPHILS - REL (DIFF) (BEAKER) (test code = 1359) 57 % LYMPHOCYTES - REL (DIFF) (BEAKER) (test code = 1360) 23 % MONOCYTES - REL (DIFF) (BEAKER) (test code = 1361) 5 % EOSINOPHILS - REL (DIFF) (BEAKER) (test code = 1362) 0 % BASOPHILS - REL (DIFF) (BEAKER) (test code = 1363) 0 % METAMYELOCYTES-REL (DIFF) (BEAKER) (test code = 258) 1 % 0 -0 H MYELOCYTES-REL (DIFF) (BEAKER) (test code = 1594) 7 % 0-0 H BANDS - REL (DIFF) (BEAKER) (test code = 1348) 7 % 0-10 NEUTROPHILS - ABS (DIFF) (BEAKER) (test code = 1365) 4.16 K/ L 1 .80-8.00 LYMPHOCYTES - ABS (DIFF) (BEAKER) (test code = 1366) 1.68 K/ L 1 .48-4.50 MONOCYTES - ABS (DIFF) (BEAKER) (test code = 1367) 0.37 K/ L 0.0 0-1.30 EOSINOPHILS - ABS (DIFF) (BEAKER) (test code = 1368) 0.00 K/ L 0 .00-0.50 BASOPHILS - ABS (DIFF) (BEAKER) (test code = 1369) 0.00 K/ L 0.0 0-0.20 METAMYELOCTYES - ABS (DIFF) (BEAKER) (test code = 261) 0.07 K/ L 0.00-0.00 H BANDS-ABS (DIFF) (BEAKER) (test code = 1349) 0.5 K/ L 0.0-0.8 MYELOCYTES-ABS (DIFF) (BEAKER) (test code = 1593) 0.51 K/ L 0.00 -0.00 H TOTAL COUNTED (BEAKER) (test code = 1351) 100 BANDS + SEGMENTED NEUTROPHILS (BEAKER) (test code = 1352) 4.67 WBC MORPHOLOGY (BEAKER) (test code = 487) Normal PLT MORPHOLOGY (BEAKER) (test code = 486) Normal ANISOCYTOSIS (BEAKER) (test code = 961) 2+ moderate POCT-GLUCOSE [id number] 12:34:00* Test Item Value Reference Range Interpretation Comments POC-GLUCOSE METER (BEAKER) (test code = 1538) 105 mg/dL 70-110 TESTED AT [facility] [address] [facility] [address] RAD, CHEST, 1 VIEW, NON [id number] 09:35:00Reason for exam:->sepsisShould this be performed at the bedside?->YesFINAL REPORT Clinical History: Sepsis Comparison Study: August 06, 2018 Findings: The cardiac silhouette is enlarged. A right jugular line is in place, the tip projecting over the SVC. The lungs are within normal limits. The pleural spaces are clear. No significant bony or soft tissue abnormalities are seen. Impression: Cardiomegaly. Improvement in pulmonary opacities. Signed: Gallito Abebe MDReport Verified Date/Time: 08/07/2018 09:35:18 Reading Location: [facility] C013Y CT Body Reading Room Gram Positive Speje0631-66-12 07:44:00* Test Item Value Reference Range Interpretation Comments Levofloxacin susceptibility test by mini mum inhibitory concentration (test code = 98178-7) <0.25 S Levofloxacin susceptibility test by mini mum inhibitory concentration (test code = 20163-5) <0.25 S Aerobic bacterial blood vkwquoa0324-51-34 07:44:00* Test Item Value Reference Range Interpretation Comments Aerobic bacterial blood culture (test code = 01641-0) Aerobic Blood Culture Bottle result: POSITIVE Aerobic bacterial blood culture (test code = 73294-74) Called to CYNDI LE on 08/02/18 at 0622 by BoxFoxCALVIN Aerobic bacterial blood culture (test code = 17352-28) Was there 100% Readback? N Aerobic bacterial blood culture (test code = 34577-39) Aerobic bacterial blood culture (test code = 43760-93) BETA HEMOLYTIC STREP GROUP A TYPED BY LATEX AGGLUTINATION. Aerobic bacterial blood culture (test code = 97246-72) STREPTOCO CCUS PYOGENES Aerobic bacterial blood culture (test code = 68718-3) Streptococ cus pyogenes Comment Bed:16Blood anaerobic txzbsza4476-28-93 07:44:00* Test Item Value Reference Range Interpretation Comments Blood anaerobic culture (test code = 61411-5) Anaerobi c Blood Culture Bottle result: POSITIVE Blood anaerobic culture (test code = 34080-74) Called to CYNDI LE on 08/02/18 at 0622 by BoxFoxCALVIN Blood anaerobic culture (test code = 26503-28) Was there 100% Readb ack? N Blood anaerobic culture (test code = 52207-17) Blood anaerobic culture (test code = 89021-96) BETA HE MOLYTIC STREP GROUP A TYPED BY LATEX AGGLUTINATION. Blood anaerobic culture (test code = 63506-64) STREPTOCOCCUS PYOGEN ES Blood anaerobic culture (test code = 45680-4) Streptococcus pyogene s Comment Bed:16Bacterial blood culture with Gram [id number] 07:44:00* Test Item Value Reference Range Interpretation Comments G POS COCCI IN PRS or CHS (test code = GRAM POS1) . Comment Bed:16Bacterial blood culture with Gram qhogw5950-11-42 07:44:00* Test Item Value Reference Range Interpretation Comments G POS COCCI IN PRS or CHS (test code = GRAM POS1) . Comment Bed:16POCT-GLUCOSE [id number] 06:45:00* Test Item Value Reference Range Interpretation Comments POC-GLUCOSE METER (BEAKER) (test code = 1538) 118 mg/dL 70-110 H TESTED AT [facility] [address] [place] [address] [id number] 06:40:00* Test Item Value Reference Range Interpretation Comments PHOSPHORUS (BEAKER) (test code = 604) 3.0 mg/dL 2.3-4.7 [id number] 06:40:00* Test Item Value Reference Range Interpretation Comments MAGNESIUM (BEAKER) (test code = 627) 2.0 mg/dL 1.6-2.6 BASIC METABOLIC [id number] 06:40:00* Test Item Value Reference Range Interpretation Comments SODIUM (BEAKER) (test code = 381) 138 meq/L 136-145 POTASSIUM (BEAKER) (test code = 379) 3.9 meq/L 3.5-5.1 CHLORIDE (BEAKER) (test code = 382) 108 meq/L 98-107 H CO2 (BEAKER) (test code = 355) 25 meq/L 22-29 BLOOD UREA NITROGEN (BEAKER) (test code = 354) 12 mg/dL 7-21 CREATININE (BEAKER) (test code = 358) 0.55 mg/dL 0.57-1.25 L GLUCOSE RANDOM (BEAKER) (test code = 652) 96 mg/dL 70-105 CALCIUM (BEAKER) (test code = 697) 8.1 mg/dL 8.4-10.2 L EGFR (BEAKER) (test code = 1092) 127 mL/min/1.73 sq m ESTIMATED GFR IS NOT ACCURATE CREATININE CLEARANCE IN PREDICTING GLOMERULAR FILTRATION RATE. ESTIMATED GFR IS NOT APPLICABLE FOR DIALYSIS PATIENTS. POCT-GLUCOSE [id number] 02:02:00* Test Item Value Reference Range Interpretation Comments POC-GLUCOSE METER (BEAKER) (test code = 1538) 112 mg/dL 70-110 H TESTED AT [facility] [address] [facility] [address] POCT-GLUCOSE [id number] 17:29:00* Test Item Value Reference Range Interpretation Comments POC-GLUCOSE METER (BEAKER) (test code = 1538) 107 mg/dL 70-110 TESTED AT [facility] [address] [facility] [address] C. DIFFICILE GDH [id number] 14:34:00* Test Item Value Reference Range Interpretation Comments CDT TOXIN (test code = 2078235774) Negative Negative CDT GDH ANTIGEN (test code = 9662263465) Negative Negative No indication of Clostridium difficile infection and no colonization. Discontinue enteric isolation and therapy. Testing performed by Alere Rapid Cassette Assay. For GDH, published sensitivity of the assay is 98.7% compared to cytotoxicity testing. For Toxin AB, publishe d sensitivity is 87.8% and specificity 99.4% compared to cytotoxicity testing.Ve rification of kit performance was done by the [facility] Microbiology Lab prior to cl inical use.POCT-GLUCOSE [id number] 12:46:00* Test Item Value Reference Range Interpretation Comments POC-GLUCOSE METER (BEAKER) (test code = 1538) 108 mg/dL 70-110 TESTED AT [facility] [address] [place] [address] RAD, CHEST, 1 VIEW, NON [id number] 11:10:00Reason for exam:->sepsisShould this be performed at the bedside?->YesFINAL REPORT Clinical History: Sepsis Comparison Study: August 05, 2018 Findings: The cardiac silhouette is enlarged. A right jugular line is in place, the tip projecting over the SVC as on previous. The lungs demonstrate scattered atelectatic changes. The pleural spaces are clear. No significant bony or soft tissue abnormalities are seen. Impression: Cardiomegaly. Scattered atelectatic changes, slightly more pronounced then on previous. Signed: Gallito Abebe MDReport Verified Date/Time: 08/06/2018 11:10:35 Reading Location: [facility] B1 C013Y CT Body Reading Room OMYCIN LEVEL, [id number] 08:56:00* Test Item Value Reference Range Interpretation Comments VANCOMYCIN TROUGH (BEAKER) (test code = 522) 10.9 ug/mL 10.0-20.0 If vancomycin trough level > 20 mcg/mL, hold next vancomycin dose, and contact MD and pharmacist.CBC W/PLT COUNT & AUTO [id number] 08:36:00* Test Item Value Reference Range Interpretation Comments WHITE BLOOD CELL COUNT (BEAKER) (test code = 775) 7.9 K/ L 3.5- 10.5 RED BLOOD CELL COUNT (BEAKER) (test code = 761) 3.47 M/ L 3.93-5 .22 L HEMOGLOBIN (BEAKER) (test code = 410) 8.0 GM/DL 11.2-15.7 L HEMATOCRIT (BEAKER) (test code = 411) 26.3 % 34.1-44.9 L MEAN CORPUSCULAR VOLUME (BEAKER) (test code = 753) 75.8 fL 79. 4-94.8 L MEAN CORPUSCULAR HEMOGLOBIN (BEAKER) (test code = 751) 23.1 pg 25.6-32.2 L MEAN CORPUSCULAR HEMOGLOBIN CONC (BEAKER) (test code = 752) 30.4 GM/DL 32.2-35.5 L RED CELL DISTRIBUTION WIDTH (BEAKER) (test code = 412) 20.2 % 11.7-14.4 H PLATELET COUNT (BEAKER) (test code = 756) 145 K/CU MM 150-450 L MEAN PLATELET VOLUME (BEAKER) (test code = 754) fL 9.4-12 .3 Unable to report due to abnormal Platelet population distribution. NUCLEATED RED BLOOD CELLS (BEAKER) (test code = 413) 1 /100 WBC 0 -0 H (CELLAVISION MANUAL DIFF)2018-08-06 08:36:00* Test Item Value Reference Range Interpretation Comments NEUTROPHILS - REL (CELLAVISION)(BEAKER) (test code = 2816) 75 % LYMPHOCYTES - REL (CELLAVISION)(BEAKER) (test code = 2817) 15 % MONOCYTES - REL (CELLAVISION)(BEAKER) (test code = 2818) 5 % EOSINOPHILS - REL (CELLAVISION)(BEAKER) (test code = 2819) 1 % METAMYELOCYTES - REL (CELLAVISION)(BEAKER) (test code = 2821) 1 % 0-0 H BANDS - REL (CELLAVISION)(BEAKER) (test code = 2826) 3 % 0 -10 NEUTROPHILS - ABS (CELLAVISION)(BEAKER) (test code = 2830) 5.93 K/ul 1.56-6.13 LYMPHOCYTES - ABS (CELLAVISION)(BEAKER) (test code = 2831) 1.19 K/ul 1.18-3.74 MONOCYTES - ABS (CELLAVISION)(BEAKER) (test code = 2832) 0.40 K/uL 0.24-0.36 H EOSINOPHILS - ABS (CELLAVISION)(BEAKER) (test code = 2834) 0.08 K/uL 0.04-0.36 METAMYELOCYTES - ABS (CELLAVISION)(BEAKER) (test code = 2836 ) 0.08 K/uL 0.00-0.00 H BANDS - ABS (CELLAVISION)(BEAKER) (test code = 2840) 0.24 K/uL 0 .00-0.80 TOTAL COUNTED (BEAKER) (test code = 1351) 100 MANUAL NRBC PER 100 CELLS (BEAKER) (test code = 1353) 2 /100 WBC 0-0 H WBC MORPHOLOGY (BEAKER) (test code = 487) Normal PLT MORPHOLOGY (BEAKER) (test code = 486) Normal ANISOCYTOSIS (BEAKER) (test code = 961) 1+ few MICROCYTES (BEAKER) (test code = 965) 1+ few ARTIFACT (CELLAVISION)(BEAKER) (test code = 3432) Present PLATELET CONCENTRATION (CELLAVISION)(BEAKER) (test code = 3438) Dec reased Received comment: User comments: Slide comments: POCT-GLUCOSE [id number] 05:51:00* Test Item Value Reference Range Interpretation Comments POC-GLUCOSE METER (BEAKER) (test code = 1538) 118 mg/dL 70-110 H TESTED AT [facility] [address] [facility] [address] [id number] 05:47:00* Test Item Value Reference Range Interpretation Comments PHOSPHORUS (BEAKER) (test code = 604) 2.4 mg/dL 2.3-4.7 [id number] 05:47:00* Test Item Value Reference Range Interpretation Comments MAGNESIUM (BEAKER) (test code = 627) 1.9 mg/dL 1.6-2.6 BASIC METABOLIC [id number] 05:47:00* Test Item Value Reference Range Interpretation Comments SODIUM (BEAKER) (test code = 381) 140 meq/L 136-145 POTASSIUM (BEAKER) (test code = 379) 3.8 meq/L 3.5-5.1 CHLORIDE (BEAKER) (test code = 382) 110 meq/L 98-107 H CO2 (BEAKER) (test code = 355) 26 meq/L 22-29 BLOOD UREA NITROGEN (BEAKER) (test code = 354) 13 mg/dL 7-21 CREATININE (BEAKER) (test code = 358) 0.55 mg/dL 0.57-1.25 L GLUCOSE RANDOM (BEAKER) (test code = 652) 98 mg/dL 70-105 CALCIUM (BEAKER) (test code = 697) 8.0 mg/dL 8.4-10.2 L EGFR (BEAKER) (test code = 1092) 127 mL/min/1.73 sq m ESTIMATED GFR IS NOT ACCURATE CREATININE CLEARANCE IN PREDICTING GLOMERULAR FILTRATION RATE. ESTIMATED GFR IS NOT APPLICABLE FOR DIALYSIS PATIENTS. [id number] 05:47:00* Test Item Value Reference Range Interpretation Comments ALBUMIN (BEAKER) (test code = 1145) 2.5 g/dL 3.5-5.0 L [id number] 05:26:00* Test Item Value Reference Range Interpretation Comments PREALBUMIN (BEAKER) (test code = 586) 8 mg/dL 14-45 L POCT-GLUCOSE [id number] 23:06:00* Test Item Value Reference Range Interpretation Comments POC-GLUCOSE METER (BEAKER) (test code = 1538) 109 mg/dL 70-110 TESTED AT [facility] [address] [facility] [address] POCT-GLUCOSE [id number] 16:48:00* Test Item Value Reference Range Interpretation Comments POC-GLUCOSE METER (BEAKER) (test code = 1538) 109 mg/dL 70-110 TESTED AT [facility] [address] [facility] [address] POCT-GLUCOSE [id number] 11:50:00* Test Item Value Reference Range Interpretation Comments POC-GLUCOSE METER (BEAKER) (test code = 1538) 109 mg/dL 70-110 TESTED AT [facility] [address] [facility] [address] RAD, CHEST, 1 VIEW, NON [id number] 09:12:00Reason for exam:->sepsisShould this be performed at the bedside?->YesFINAL REPORT Clinical History: sepsis Comparison Study: August 04, 2018 Findings: The heart and lungs are within normal limits. The pleural spaces are clear. A right jugular line remains. No pneumothorax is seen. No significant bony or soft tissue abnormalities are seen. Impression: No active cardiopulmonary disease. Signed: Gallito Abebe MDReport Verified Date/Time: 08/05/2018 09:12:22 Reading Location: [facility] Radiology Reading Room W/PLT COUNT & AUTO [id number] 07:35:00* Test Item Value Reference Range Interpretation Comments WHITE BLOOD CELL COUNT (BEAKER) (test code = 775) 8.4 K/ L 3.5- 10.5 RED BLOOD CELL COUNT (BEAKER) (test code = 761) 3.40 M/ L 3.93-5 .22 L HEMOGLOBIN (BEAKER) (test code = 410) 7.8 GM/DL 11.2-15.7 L HEMATOCRIT (BEAKER) (test code = 411) 25.5 % 34.1-44.9 L MEAN CORPUSCULAR VOLUME (BEAKER) (test code = 753) 75.0 fL 79. 4-94.8 L MEAN CORPUSCULAR HEMOGLOBIN (BEAKER) (test code = 751) 22.9 pg 25.6-32.2 L MEAN CORPUSCULAR HEMOGLOBIN CONC (BEAKER) (test code = 752) 30.6 GM/DL 32.2-35.5 L RED CELL DISTRIBUTION WIDTH (BEAKER) (test code = 412) 19.9 % 11.7-14.4 H PLATELET COUNT (BEAKER) (test code = 756) 121 K/CU MM 150-450 L MEAN PLATELET VOLUME (BEAKER) (test code = 754) 11.8 fL 9.4-12 .3 NUCLEATED RED BLOOD CELLS (BEAKER) (test code = 413) 1 /100 WBC 0 -0 H (CELLAVISION MANUAL DIFF)2018-08-05 07:35:00* Test Item Value Reference Range Interpretation Comments NEUTROPHILS - REL (CELLAVISION)(BEAKER) (test code = 2816) 81 % LYMPHOCYTES - REL (CELLAVISION)(BEAKER) (test code = 2817) 11 % MONOCYTES - REL (CELLAVISION)(BEAKER) (test code = 2818) 4 % BANDS - REL (CELLAVISION)(BEAKER) (test code = 2826) 3 % 0 -10 ATYPICAL LYMPHOCYTES - REL (CELLAVISION)(BEAKER) (test code = 2829) 1 % 0-0 H NEUTROPHILS - ABS (CELLAVISION)(BEAKER) (test code = 2830) 6.80 K/ul 1.56-6.13 H LYMPHOCYTES - ABS (CELLAVISION)(BEAKER) (test code = 2831) 0.92 K/ul 1.18-3.74 L MONOCYTES - ABS (CELLAVISION)(BEAKER) (test code = 2832) 0.34 K/uL 0.24-0.36 BANDS - ABS (CELLAVISION)(BEAKER) (test code = 2840) 0.25 K/uL 0 .00-0.80 ATYPICAL LYMPHOCYTES - ABS (CELLAVISION)(BEAKER) (test code = 9808) 0.08 K/uL 0.00-0.00 H TOTAL COUNTED (BEAKER) (test code = 1351) 100 MANUAL NRBC PER 100 CELLS (BEAKER) (test code = 1353) 1 /100 WBC 0-0 H WBC MORPHOLOGY (BEAKER) (test code = 487) Normal LARGE PLT(BEAKER) (test code = 2156) Present POLYCHROMATOPHILLIC RBCS(BEAKER) (test code = 478) 1+ few HYPOCHROMIA (BEAKER) (test code = 963) 1+ few ARTIFACT (CELLAVISION)(BEAKER) (test code = 3432) Present PLATELET CONCENTRATION (CELLAVISION)(BEAKER) (test code = 3438) Dec reased Received comment: User comments: Slide comments: POCT-GLUCOSE [id number] 06:19:00* Test Item Value Reference Range Interpretation Comments POC-GLUCOSE METER (BEAKER) (test code = 1538) 113 mg/dL 70-110 H TESTED AT [facility] [address] [facility] [address] BASIC METABOLIC [id number] 04:33:00* Test Item Value Reference Range Interpretation Comments SODIUM (BEAKER) (test code = 381) 141 meq/L 136-145 POTASSIUM (BEAKER) (test code = 379) 3.5 meq/L 3.5-5.1 CHLORIDE (BEAKER) (test code = 382) 111 meq/L 98-107 H CO2 (BEAKER) (test code = 355) 24 meq/L 22-29 BLOOD UREA NITROGEN (BEAKER) (test code = 354) 14 mg/dL 7-21 CREATININE (BEAKER) (test code = 358) 0.63 mg/dL 0.57-1.25 GLUCOSE RANDOM (BEAKER) (test code = 652) 104 mg/dL 70-105 CALCIUM (BEAKER) (test code = 697) 7.8 mg/dL 8.4-10.2 L EGFR (BEAKER) (test code = 1092) 108 mL/min/1.73 sq m ESTIMATED GFR IS NOT ACCURATE CREATININE CLEARANCE IN PREDICTING GLOMERULAR FILTRATION RATE. ESTIMATED GFR IS NOT APPLICABLE FOR DIALYSIS PATIENTS. [id number] 04:15:00* Test Item Value Reference Range Interpretation Comments PHOSPHORUS (BEAKER) (test code = 604) 2.8 mg/dL 2.3-4.7 [id number] 04:15:00* Test Item Value Reference Range Interpretation Comments MAGNESIUM (BEAKER) (test code = 627) 2.2 mg/dL 1.6-2.6 [id number] 04:06:00* Test Item Value Reference Range Interpretation Comments PROTIME (BEAKER) (test code = 759) 15.5 seconds 11.7-14.7 H INR (BEAKER) (test code = 370) 1.2 <=5.9 PARTIAL THROMBOPLASTIN TIME (BEAKER) (test code = 760) 30.7 seconds 22.5-36.0 RECOMMENDED COUMADIN/WARFARIN INR THERAPY RANGESSTANDARD DOSE: 2.0 - 3.0 Inclu rachel: PROPHYLAXIS for venous thrombosis, systemic embolization; TREATMENT for salena ous thrombosis and/or pulmonary embolus.HIGH RISK: Target INR is 2.5-3.5 for pat ients with mechanical heart valves.POCT-GLUCOSE [id number] 00:35:00* Test Item Value Reference Range Interpretation Comments POC-GLUCOSE METER (BEAKER) (test code = 1538) 125 mg/dL 70-110 H TESTED AT [address] [address] HEMOGLOBIN AND [id number] 22:41:00* Test Item Value Reference Range Interpretation Comments HEMOGLOBIN (BEAKER) (test code = 410) 7.7 GM/DL 11.2-15.7 L HEMATOCRIT (BEAKER) (test code = 411) 25.2 % 34.1-44.9 L POCT-GLUCOSE [id number] 17:59:00* Test Item Value Reference Range Interpretation Comments POC-GLUCOSE METER (BEAKER) (test code = 1538) 121 mg/dL 70-110 H TESTED AT [address] [address] CBC (HEMOGRAM ONLY)2018-08-04 14:01:00* Test Item Value Reference Range Interpretation Comments WHITE BLOOD CELL COUNT (BEAKER) (test code = 775) 10.1 K/ L 3.5- 10.5 RED BLOOD CELL COUNT (BEAKER) (test code = 761) 3.62 M/ L 3.93-5 .22 L HEMOGLOBIN (BEAKER) (test code = 410) 8.1 GM/DL 11.2-15.7 L HEMATOCRIT (BEAKER) (test code = 411) 27.1 % 34.1-44.9 L MEAN CORPUSCULAR VOLUME (BEAKER) (test code = 753) 74.9 fL 79. 4-94.8 L MEAN CORPUSCULAR HEMOGLOBIN (BEAKER) (test code = 751) 22.4 pg 25.6-32.2 L MEAN CORPUSCULAR HEMOGLOBIN CONC (BEAKER) (test code = 752) 29.9 GM/DL 32.2-35.5 L RED CELL DISTRIBUTION WIDTH (BEAKER) (test code = 412) 19.9 % 11.7-14.4 H PLATELET COUNT (BEAKER) (test code = 756) 137 K/CU MM 150-450 L NUCLEATED RED BLOOD CELLS (BEAKER) (test code = 413) 1 /100 WBC 0 -0 H POCT-GLUCOSE [id number] 11:47:00* Test Item Value Reference Range Interpretation Comments POC-GLUCOSE METER (BEAKER) (test code = 1538) 131 mg/dL 70-110 H TESTED AT [facility] [address] [facility] [address] CBC W/PLT COUNT & AUTO [id number] 08:09:00* Test Item Value Reference Range Interpretation Comments WHITE BLOOD CELL COUNT (BEAKER) (test code = 775) 12.3 K/ L 3.5- 10.5 H RED BLOOD CELL COUNT (BEAKER) (test code = 761) 3.25 M/ L 3.93-5 .22 L HEMOGLOBIN (BEAKER) (test code = 410) 7.2 GM/DL 11.2-15.7 L HEMATOCRIT (BEAKER) (test code = 411) 24.0 % 34.1-44.9 L MEAN CORPUSCULAR VOLUME (BEAKER) (test code = 753) 73.8 fL 79. 4-94.8 L MEAN CORPUSCULAR HEMOGLOBIN (BEAKER) (test code = 751) 22.2 pg 25.6-32.2 L MEAN CORPUSCULAR HEMOGLOBIN CONC (BEAKER) (test code = 752) 30.0 GM/DL 32.2-35.5 L RED CELL DISTRIBUTION WIDTH (BEAKER) (test code = 412) 19.5 % 11.7-14.4 H PLATELET COUNT (BEAKER) (test code = 756) 126 K/CU MM 150-450 L MEAN PLATELET VOLUME (BEAKER) (test code = 754) fL 9.4-12 .3 Unable to report due to abnormal Platelet population distribution. NUCLEATED RED BLOOD CELLS (BEAKER) (test code = 413) 0 /100 WBC 0 -0 (CELLAVISION MANUAL DIFF)2018-08-04 08:09:00* Test Item Value Reference Range Interpretation Comments NEUTROPHILS - REL (CELLAVISION)(BEAKER) (test code = 2816) 87 % LYMPHOCYTES - REL (CELLAVISION)(BEAKER) (test code = 2817) 8 % MONOCYTES - REL (CELLAVISION)(BEAKER) (test code = 2818) 2 % EOSINOPHILS - REL (CELLAVISION)(BEAKER) (test code = 2819) 1 % BANDS - REL (CELLAVISION)(BEAKER) (test code = 2826) 2 % 0 -10 NEUTROPHILS - ABS (CELLAVISION)(BEAKER) (test code = 2830) 10.70 K/ul 1.56-6.13 H LYMPHOCYTES - ABS (CELLAVISION)(BEAKER) (test code = 2831) 0.98 K/ul 1.18-3.74 L MONOCYTES - ABS (CELLAVISION)(BEAKER) (test code = 2832) 0.25 K/uL 0.24-0.36 EOSINOPHILS - ABS (CELLAVISION)(BEAKER) (test code = 2834) 0.12 K/uL 0.04-0.36 BANDS - ABS (CELLAVISION)(BEAKER) (test code = 2840) 0.25 K/uL 0 .00-0.80 TOTAL COUNTED (BEAKER) (test code = 1351) 100 MANUAL NRBC PER 100 CELLS (BEAKER) (test code = 1353) 1 /100 WBC 0-0 H SMUDGE CELLS (BEAKER) (test code = 1371) Present GIANT PLATELETS (BEAKER) (test code = 313) Present ANISOCYTOSIS (BEAKER) (test code = 961) 2+ moderate MICROCYTES (BEAKER) (test code = 965) 2+ moderate POIKILOCYTES (BEAKER) (test code = 966) 2+ moderate ESTHER CELLS (BEAKER) (test code = 474) 2+ moderate ARTIFACT (CELLAVISION)(BEAKER) (test code = 3432) Present PLATELET CONCENTRATION (CELLAVISION)(BEAKER) (test code = 3438) Dec reased Received comment: User comments: Slide comments: POCT-GLUCOSE [id number] 06:42:00* Test Item Value Reference Range Interpretation Comments POC-GLUCOSE METER (BEAKER) (test code = 1538) 111 mg/dL 70-110 H TESTED AT [facility] [address] [facility] [address] RAD, CHEST, 1 VIEW, NON [id number] 05:03:00Reason for exam:->sepsisShould this be performed at the bedside?->YesFINAL REPORT RAD, CHEST, 1 VIEW, NON DEPT INDICATION: sepsis COMPARISON: Prior day's exam FINDINGS: Portable frontal view of the chest. IMPRESSION: Support Lines: Right IJ catheter tip terminates overlying the atriocaval junction Lungs and pleura: Given differences in technique, hazy airspace opacities are not significantly changed No pneumothorax.Heart and mediastinum: Stable contours. Additional findings: None. Signed: Brannon Morris MDReport Verified Date/Time: 08/04/2018 05:03:11 Reading Location: [address] Neuro Reading Room C METABOLIC [id number] 04:22:00* Test Item Value Reference Range Interpretation Comments SODIUM (BEAKER) (test code = 381) 144 meq/L 136-145 POTASSIUM (BEAKER) (test code = 379) 3.5 meq/L 3.5-5.1 CHLORIDE (BEAKER) (test code = 382) 115 meq/L 98-107 H CO2 (BEAKER) (test code = 355) 22 meq/L 22-29 BLOOD UREA NITROGEN (BEAKER) (test code = 354) 15 mg/dL 7-21 CREATININE (BEAKER) (test code = 358) 0.74 mg/dL 0.57-1.25 GLUCOSE RANDOM (BEAKER) (test code = 652) 105 mg/dL 70-105 CALCIUM (BEAKER) (test code = 697) 7.9 mg/dL 8.4-10.2 L EGFR (BEAKER) (test code = 1092) 90 mL/min/1.73 sq m ESTIMATED GFR IS NOT ACCURATE CREATININE CLEARANCE IN PREDICTING GLOMERULAR FILTRATION RATE. ESTIMATED GFR IS NOT APPLICABLE FOR DIALYSIS PATIENTS. PT/[id number] 04:20:00* Test Item Value Reference Range Interpretation Comments PROTIME (BEAKER) (test code = 759) 15.6 seconds 11.7-14.7 H INR (BEAKER) (test code = 370) 1.2 <=5.9 PARTIAL THROMBOPLASTIN TIME (BEAKER) (test code = 760) 30.3 seconds 22.5-36.0 RECOMMENDED COUMADIN/WARFARIN INR THERAPY RANGESSTANDARD DOSE: 2.0 - 3.0 Inclu rachel: PROPHYLAXIS for venous thrombosis, systemic embolization; TREATMENT for salena ous thrombosis and/or pulmonary embolus.HIGH RISK: Target INR is 2.5-3.5 for pat ients with mechanical heart valves.[id number] 04:19:00* Test Item Value Reference Range Interpretation Comments PHOSPHORUS (BEAKER) (test code = 604) 2.3 mg/dL 2.3-4.7 [id number] 04:19:00* Test Item Value Reference Range Interpretation Comments MAGNESIUM (BEAKER) (test code = 627) 2.3 mg/dL 1.6-2.6 PROTHROMBIN TIME/[id number] 04:15:00* Test Item Value Reference Range Interpretation Comments PROTIME (BEAKER) (test code = 759) 15.6 seconds 11.7-14.7 H INR (BEAKER) (test code = 370) 1.2 <=5.9 RECOMMENDED COUMADIN/WARFARIN INR THERAPY RANGESSTANDARD DOSE: 2.0 - 3.0 Inclu rachel: PROPHYLAXIS for venous thrombosis, systemic embolization; TREATMENT for salena ous thrombosis and/or pulmonary embolus.HIGH RISK: Target INR is 2.5-3.5 for pat ients with mechanical heart valves.POCT-GLUCOSE [id number] 02:05:00* Test Item Value Reference Range Interpretation Comments POC-GLUCOSE METER (BEAKER) (test code = 1538) 103 mg/dL 70-110 TESTED AT [facility] [address] [facility] [address] VANCOMYCIN LEVEL, [id number] 21:12:00* Test Item Value Reference Range Interpretation Comments VANCOMYCIN TROUGH (BEAKER) (test code = 522) 20.5 ug/mL 10.0-20.0 H If vancomycin trough level > 20 mcg/mL, hold next vancomycin dose, and contact MD and pharmacist.POCT-GLUCOSE [id number] 18:15:00* Test Item Value Reference Range Interpretation Comments POC-GLUCOSE METER (BEAKER) (test code = 1538) 86 mg/dL 70-110 TESTED AT [facility] [address] [place] [address] BLOOD CULTURE IDENTIFICATION [id number] 17:13:00* Test Item Value Reference Range Interpretation Comments LISTERIA MONOCYTOGENES (test code = 0335042) Not detected Not detec joseph STAPHYLOCOCCUS (test code = 1513250) Not detected Not detected STAPHYLOCOCCUS AUREUS (test code = 4975685) Not detected Not detect ed STREPTOCOCCUS (test code = 6001180) Not detected Not detected STREPTOCOCCUS AGALACTIAE (GROUP B) (test code = 0003839) Not detected Not detected STREPTOCOCCUS PNEUMONIAE (test code = 1814754) Not detected Not det ected STREPTOCOCCUS PYOGENES (GROUP A) (test code = 5321614) Not d etected Not detected ACINETOBACTER BAUMANNII (test code = 6497029) Not detected Not dete cted HAEMOPHILUS INFLUENZAE (test code = 2488109) Not detected Not detec joseph NEISSERIA MENINGITIDIS (test code = 8290483) Not detected Not detec joseph ENTEROBACTERIACEAE (test code = 3345527) Not detected Not detected ENTEROBACTER CLOACOE COMPLEX (test code = 4123643) Not detected Not detected KLEBSIELLA OXYTOCA (test code = 2544871) Not detected Not detected KLEBSIELLA PNEUMONIAE (test code = 1650) Not detected Not detected PROTEUS (test code = 5450840) Not detected Not detected SERRATIA MARCESCENS (test code = 7484317) Not detected Not detected SRIDHAR ALBICANS (test code = 1446172) Not detected Not detected SRIDHAR GLABRATA (test code = 3425181) Not detected Not detected SRIDHAR KRUSEI (test code = 4489937) Not detected Not detected SRIDHAR PARAPSILOSIS (test code = 7071039) Not detected Not detecte d SRIDHAR TROPICALIS (test code = 3873371) Not detected Not detected ESCHERICHIA COLI (test code = 8970329) Not detected Not detected METHICILLIN-RESISTANCE GENE (test code = 1868971) Not detected VANCOMYCIN-RESISTANCE GENE (test code = 3948580) Not d etected CARBAPENEM-RESISTANCE GENE (test code = 3916885) Not d etected ENTEROCOCCUS-BEAKER (test code = 9399119) Not detected Not detected PSEUDOMONAS AERUGINOSA-BEAKER (test code = 4537318) Not detected No t detected Other bacteria and resistance markers not targeted by this PCR panel cannot be e xcluded; therefore clinical correlation and follow up of serology, culture resul ts, and other molecular studies is required. The results are not intended to be used as the sole means for clinical diagnosis or patient management decisions. T his sample was tested at the [facility] using the [employer] ([employer] Blood Culture ID Panel. It is FDA cleared and has been verified and approved by the [facility] for clinical use. Thi s laboratory is CLIA-certified and [employer] ([employer])-accred ited to perform high complexity testing.CBC (HEMOGRAM ONLY)2018-08-03 15:45:00* Test Item Value Reference Range Interpretation Comments WHITE BLOOD CELL COUNT (BEAKER) (test code = 775) 18.7 K/ L 3.5- 10.5 H RED BLOOD CELL COUNT (BEAKER) (test code = 761) 3.33 M/ L 3.93-5 .22 L HEMOGLOBIN (BEAKER) (test code = 410) 7.4 GM/DL 11.2-15.7 L HEMATOCRIT (BEAKER) (test code = 411) 24.5 % 34.1-44.9 L MEAN CORPUSCULAR VOLUME (BEAKER) (test code = 753) 73.6 fL 79. 4-94.8 L MEAN CORPUSCULAR HEMOGLOBIN (BEAKER) (test code = 751) 22.2 pg 25.6-32.2 L MEAN CORPUSCULAR HEMOGLOBIN CONC (BEAKER) (test code = 752) 30.2 GM/DL 32.2-35.5 L RED CELL DISTRIBUTION WIDTH (BEAKER) (test code = 412) 19.2 % 11.7-14.4 H PLATELET COUNT (BEAKER) (test code = 756) 125 K/CU MM 150-450 L NUCLEATED RED BLOOD CELLS (BEAKER) (test code = 413) 0 /100 WBC 0 -0 POCT-GLUCOSE [id number] 13:28:00* Test Item Value Reference Range Interpretation Comments POC-GLUCOSE METER (BEAKER) (test code = 1538) 106 mg/dL 70-110 TESTED AT [facility] [address] [facility] [address] Bacterial culture w [id number] 10:04:00* Test Item Value Reference Range Interpretation Comments Bacterial culture w ID (test code = 6463-4) NORMAL UPP ER RESPIRATORY [place] GROWN. CBC W/PLT COUNT & AUTO [id number] 08:38:00* Test Item Value Reference Range Interpretation Comments WHITE BLOOD CELL COUNT (BEAKER) (test code = 775) 19.0 K/ L 3.5- 10.5 H RED BLOOD CELL COUNT (BEAKER) (test code = 761) 3.27 M/ L 3.93-5 .22 L HEMOGLOBIN (BEAKER) (test code = 410) 7.2 GM/DL 11.2-15.7 L HEMATOCRIT (BEAKER) (test code = 411) 24.3 % 34.1-44.9 L MEAN CORPUSCULAR VOLUME (BEAKER) (test code = 753) 74.3 fL 79. 4-94.8 L MEAN CORPUSCULAR HEMOGLOBIN (BEAKER) (test code = 751) 22.0 pg 25.6-32.2 L MEAN CORPUSCULAR HEMOGLOBIN CONC (BEAKER) (test code = 752) 29.6 GM/DL 32.2-35.5 L RED CELL DISTRIBUTION WIDTH (BEAKER) (test code = 412) 19.2 % 11.7-14.4 H PLATELET COUNT (BEAKER) (test code = 756) 109 K/CU MM 150-450 L MEAN PLATELET VOLUME (BEAKER) (test code = 754) fL 9.4-12 .3 Unable to report due to abnormal Platelet population distribution. NUCLEATED RED BLOOD CELLS (BEAKER) (test code = 413) 0 /100 WBC 0 -0 (CELLAVISION MANUAL DIFF)2018-08-03 08:38:00* Test Item Value Reference Range Interpretation Comments NEUTROPHILS - REL (CELLAVISION)(BEAKER) (test code = 2816) 80 % LYMPHOCYTES - REL (CELLAVISION)(BEAKER) (test code = 2817) 10 % MONOCYTES - REL (CELLAVISION)(BEAKER) (test code = 2818) 1 % BANDS - REL (CELLAVISION)(BEAKER) (test code = 2826) 7 % 0 -10 ATYPICAL LYMPHOCYTES - REL (CELLAVISION)(BEAKER) (test code = 2829) 2 % 0-0 H NEUTROPHILS - ABS (CELLAVISION)(BEAKER) (test code = 2830) 15.20 K/ul 1.56-6.13 H LYMPHOCYTES - ABS (CELLAVISION)(BEAKER) (test code = 2831) 1.90 K/ul 1.18-3.74 MONOCYTES - ABS (CELLAVISION)(BEAKER) (test code = 2832) 0.19 K/uL 0.24-0.36 L BANDS - ABS (CELLAVISION)(BEAKER) (test code = 2840) 1.33 K/uL 0 .00-0.80 H ATYPICAL LYMPHOCYTES - ABS (CELLAVISION)(BEAKER) (test code = 2858) 0.38 K/uL 0.00-0.00 H TOTAL COUNTED (BEAKER) (test code = 1351) 100 SMUDGE CELLS (BEAKER) (test code = 1371) Present GIANT PLATELETS (BEAKER) (test code = 313) Present VACUOLATED NEUTROPHILS (BEAKER) (test code = 483) Present HYPOCHROMIA (BEAKER) (test code = 963) 1+ few ANISOCYTOSIS (BEAKER) (test code = 961) 1+ few MICROCYTES (BEAKER) (test code = 965) 1+ few POIKILOCYTES (BEAKER) (test code = 966) 1+ few PLATELET CONCENTRATION (CELLAVISION)(BEAKER) (test code = 3438) Dec reased Received comment: User comments: Slide comments: POCT-GLUCOSE [id number] 06:22:00* Test Item Value Reference Range Interpretation Comments POC-GLUCOSE METER (BEAKER) (test code = 1538) 110 mg/dL 70-110 TESTED AT [facility] [address] [place] [id number] LACTIC ACID, ARTERIAL, WHOLE [id number] 06:15:00* Test Item Value Reference Range Interpretation Comments LACTATE BLOOD ARTERIAL (2) (BEAKER) (test code = 2874) 1.8 mmol/L 0.5-2.2 [id number] 05:30:00* Test Item Value Reference Range Interpretation Comments PROTIME (BEAKER) (test code = 759) 18.6 seconds 11.7-14.7 H INR (BEAKER) (test code = 370) 1.6 <=5.9 PARTIAL THROMBOPLASTIN TIME (BEAKER) (test code = 760) 36.9 seconds 22.5-36.0 H RECOMMENDED COUMADIN/WARFARIN INR THERAPY RANGESSTANDARD DOSE: 2.0 - 3.0 Inclu rachel: PROPHYLAXIS for venous thrombosis, systemic embolization; TREATMENT for salena ous thrombosis and/or pulmonary embolus.HIGH RISK: Target INR is 2.5-3.5 for pat ients with mechanical heart valves.[id number] 05:09:00* Test Item Value Reference Range Interpretation Comments PHOSPHORUS (BEAKER) (test code = 604) 2.6 mg/dL 2.3-4.7 [id number] 05:09:00* Test Item Value Reference Range Interpretation Comments MAGNESIUM (BEAKER) (test code = 627) 2.3 mg/dL 1.6-2.6 BASIC METABOLIC [id number] 05:09:00* Test Item Value Reference Range Interpretation Comments SODIUM (BEAKER) (test code = 381) 143 meq/L 136-145 POTASSIUM (BEAKER) (test code = 379) 4.0 meq/L 3.5-5.1 CHLORIDE (BEAKER) (test code = 382) 115 meq/L 98-107 H CO2 (BEAKER) (test code = 355) 20 meq/L 22-29 L BLOOD UREA NITROGEN (BEAKER) (test code = 354) 15 mg/dL 7-21 CREATININE (BEAKER) (test code = 358) 0.97 mg/dL 0.57-1.25 GLUCOSE RANDOM (BEAKER) (test code = 652) 99 mg/dL 70-105 CALCIUM (BEAKER) (test code = 697) 8.0 mg/dL 8.4-10.2 L EGFR (BEAKER) (test code = 1092) 66 mL/min/1.73 sq m ESTIMATED GFR IS NOT ACCURATE CREATININE CLEARANCE IN PREDICTING GLOMERULAR FILTRATION RATE. ESTIMATED GFR IS NOT APPLICABLE FOR DIALYSIS PATIENTS. LACTIC ACID, ARTERIAL, WHOLE [id number] 03:01:00* Test Item Value Reference Range Interpretation Comments LACTATE BLOOD ARTERIAL (2) (BEAKER) (test code = 2874) 1.4 mmol/L 0.5-2.2 POCT-GLUCOSE [id number] 00:06:00* Test Item Value Reference Range Interpretation Comments POC-GLUCOSE METER (BEAKER) (test code = 1538) 125 mg/dL 70-110 H TESTED AT [facility] [address] [facility] [address] BLOOD GAS, [id number] 19:00:00* Test Item Value Reference Range Interpretation Comments PH ARTERIAL (BEAKER) (test code = 383) 7.44 7.35-7.45 PCO2 ARTERIAL (BEAKER) (test code = 384) 26 mmHg 35-45 L PO2 ARTERIAL (BEAKER) (test code = 385) 104 mmHg 80-90 H O2 SATURATION ARTERIAL (BEAKER) (test code = 386) 98.1 % 96.0 -97.0 H HCO3 ARTERIAL (BEAKER) (test code = 388) 17 mmol/L 21-29 L BASE EXCESS ARTERIAL (BEAKER) (test code = 387) -6.4 mmol/L -2.0-3 .0 L PATIENT TEMPERATURE (BEAKER) (test code = 1818) 36.6 C POCT-GLUCOSE [id number] 18:54:00* Test Item Value Reference Range Interpretation Comments POC-GLUCOSE METER (BEAKER) (test code = 1538) 130 mg/dL 70-110 H TESTED AT [facility] [address] [facility] [address] [id number] 17:37:00* Test Item Value Reference Range Interpretation Comments PHOSPHORUS (BEAKER) (test code = 604) 3.3 mg/dL 2.3-4.7 [id number] 17:37:00* Test Item Value Reference Range Interpretation Comments MAGNESIUM (BEAKER) (test code = 627) 2.2 mg/dL 1.6-2.6 BASIC METABOLIC [id number] 17:37:00* Test Item Value Reference Range Interpretation Comments SODIUM (BEAKER) (test code = 381) 141 meq/L 136-145 POTASSIUM (BEAKER) (test code = 379) 4.1 meq/L 3.5-5.1 CHLORIDE (BEAKER) (test code = 382) 114 meq/L 98-107 H CO2 (BEAKER) (test code = 355) 17 meq/L 22-29 L BLOOD UREA NITROGEN (BEAKER) (test code = 354) 12 mg/dL 7-21 CREATININE (BEAKER) (test code = 358) 1.04 mg/dL 0.57-1.25 GLUCOSE RANDOM (BEAKER) (test code = 652) 121 mg/dL 70-105 H CALCIUM (BEAKER) (test code = 697) 8.0 mg/dL 8.4-10.2 L EGFR (BEAKER) (test code = 1092) 61 mL/min/1.73 sq m ESTIMATED GFR IS NOT ACCURATE CREATININE CLEARANCE IN PREDICTING GLOMERULAR FILTRATION RATE. ESTIMATED GFR IS NOT APPLICABLE FOR DIALYSIS PATIENTS. LACTIC ACID, ARTERIAL, WHOLE [id number] 17:35:00* Test Item Value Reference Range Interpretation Comments LACTATE BLOOD ARTERIAL (2) (BEAKER) (test code = 2874) 2.6 mmol/L 0.5-2.2 H [id number] 17:24:00* Test Item Value Reference Range Interpretation Comments PROTIME (BEAKER) (test code = 759) 20.8 seconds 11.7-14.7 H INR (BEAKER) (test code = 370) 1.8 <=5.9 PARTIAL THROMBOPLASTIN TIME (BEAKER) (test code = 760) 38.7 seconds 22.5-36.0 H RECOMMENDED COUMADIN/WARFARIN INR THERAPY RANGESSTANDARD DOSE: 2.0 - 3.0 Inclu rachel: PROPHYLAXIS for venous thrombosis, systemic embolization; TREATMENT for salena ous thrombosis and/or pulmonary embolus.HIGH RISK: Target INR is 2.5-3.5 for pat ients with mechanical heart valves.CBC (HEMOGRAM ONLY)2018-08-02 17:16:00* Test Item Value Reference Range Interpretation Comments WHITE BLOOD CELL COUNT (BEAKER) (test code = 775) 28.6 K/ L 3.5- 10.5 H RED BLOOD CELL COUNT (BEAKER) (test code = 761) 3.49 M/ L 3.93-5 .22 L HEMOGLOBIN (BEAKER) (test code = 410) 7.9 GM/DL 11.2-15.7 L HEMATOCRIT (BEAKER) (test code = 411) 25.4 % 34.1-44.9 L MEAN CORPUSCULAR VOLUME (BEAKER) (test code = 753) 72.8 fL 79. 4-94.8 L MEAN CORPUSCULAR HEMOGLOBIN (BEAKER) (test code = 751) 22.6 pg 25.6-32.2 L MEAN CORPUSCULAR HEMOGLOBIN CONC (BEAKER) (test code = 752) 31.1 GM/DL 32.2-35.5 L RED CELL DISTRIBUTION WIDTH (BEAKER) (test code = 412) 18.9 % 11.7-14.4 H PLATELET COUNT (BEAKER) (test code = 756) 102 K/CU MM 150-450 L NUCLEATED RED BLOOD CELLS (BEAKER) (test code = 413) 0 /100 WBC 0 -0 [id number] 17:01:00* Test Item Value Reference Range Interpretation Comments MAGNESIUM (BEAKER) (test code = 627) 2.2 mg/dL 1.6-2.6 CT, [id number] 14:41:00PO contrast (recent gastric bypass only 100cc of contrast please) and IV contrast pleaseFINAL REPORT ABDOMINAL AND PELVIS CT DATED 08/02/2018 CLINICAL INFORMATION: Evaluate for hepatic thromosis, and/or perforation s/p surgery TECHNIQUE: Axial images of the abdomen and pelvis were obtained from diaphragm to the pubic symphysis with GI and intravenous contrast. This exam was performed according to our departmental dose-optimization program, which includes automated exposure control, adjustment of the mA and/or kV according to patient size and/or use of interactive reconstruction technique. COMMENT: There is trace bilateral pleural effusion. Patient is status post gastric sleeve procedure. A 4.7 x 5.4 cm loculated air-fluid collection is seen adjacent to the suture near the GE junction under the left hemidiaphragm. Liver is normal in size without focal abnormality. Gallbladder is distended. Small amount fluid is seen in the peric holecystic space. No gallstone or biliary dilatation is noted. Spleen is enlarge d measuring 13.8 x 4.4 x 13.9 cm. The splenic, superior mesenteric, and a portal vein is patent. No portal vein thrombosis is noted. Main portal vein measures a pproximately 1.6 cm in diameter. Pancreas and adrenals are unremarkable. Both kidneys are normal in size and functioning. No hydronephrosis, hydroureter, urol ithiasis is seen. The small and large bowel are unremarkable. Appendix is not vi sualized. Uterus and ovaries are unremarkable. The urinary bladder is contracted . IMPRESSION: 1. Trace bilateral pleural effusion.2. Loculated air-fluid collec tion under the left hemidiaphragm.3. Minimally distended gallbladder with nonspe cific pericholecystic fluid collection.4. No portal vein thrombosis. Signed: Raghav Lealeport Verified Date/Time: 08/02/2018 14:41:14 Reading Location: [facility] C013Y CT Body Reading Room IC ACID, ARTERIAL, WHOLE [id number] 14:16:00* Test Item Value Reference Range Interpretation Comments LACTATE BLOOD ARTERIAL (2) ([facility]) (test code = 2874) 3.7 mmol/L 0.5-2.2 H POCT-GLUCOSE [id number] 13:56:00* Test Item Value Reference Range Interpretation Comments POC-GLUCOSE METER (BEAKER) (test code = 1538) 94 mg/dL 70-110 TESTED AT [address] [address] POCT-GLUCOSE [id number] 11:54:00* Test Item Value Reference Range Interpretation Comments POC-GLUCOSE METER (AKER) (test code = 1538) 56 mg/dL 70-110 L Notified JANA HUGHES/TESTED AT [address] [address] CBC W/PLT COUNT & AUTO [id number] 10:13:00* Test Item Value Reference Range Interpretation Comments WHITE BLOOD CELL COUNT (BEAKER) (test code = 775) 33.6 K/ L 3.5- 10.5 H This is a corrected result. Previous result was 33.5 K/ L on 08/02/2018 at 0410 GRIEF COUNSELLOR RED BLOOD CELL COUNT (BEAKER) (test code = 761) 3.41 M/ L 3.93-5 .22 L This is a corrected result. Previous result was 3.43 M/ L on 08/02/2018 at 0410 GRIEF COUNSELLOR HEMOGLOBIN (BEAKER) (test code = 410) 7.7 GM/DL 11.2-15.7 L HEMATOCRIT (BEAKER) (test code = 411) 25.0 % 34.1-44.9 L This is a corrected result. Previous result was 25.1 % on 08/02/2018 at 0410 GRIEF COUNSELLOR MEAN CORPUSCULAR VOLUME (BEAKER) (test code = 753) 73.3 fL 79. 4-94.8 L This is a corrected result. Previous result was 73.2 fL on 08/02/2018 at 0410 GRIEF COUNSELLOR MEAN CORPUSCULAR HEMOGLOBIN (BEAKER) (test code = 751) 22.6 pg 25.6-32.2 L This is a corrected result. Previous result was 22.4 pg on 08/02/2018 at 0410 GRIEF COUNSELLOR MEAN CORPUSCULAR HEMOGLOBIN CONC (BEAKER) (test code = 752) 30.8 GM/DL 32.2-35.5 L This is a corrected result. Previous result was 30.7 GM/DL on 08/02/2018 at 0410 GRIEF COUNSELLOR RED CELL DISTRIBUTION WIDTH (BEAKER) (test code = 412) 18.9 % 11.7-14.4 H This is a corrected result. Previous result was 19.0 % on 08/02/2018 at 0410 GRIEF COUNSELLOR PLATELET COUNT (BEAKER) (test code = 756) 141 K/CU MM 150-450 L This is a corrected result. Previous result was 136 K/CU MM on 08/02/2018 at 0410 GRIEF COUNSELLOR MEAN PLATELET VOLUME (BEAKER) (test code = 754) 12.1 fL 9.4-12 .3 This is a corrected result. Previous result was 11.8 fL on 08/02/2018 at 0410 GRIEF COUNSELLOR NUCLEATED RED BLOOD CELLS (BEAKER) (test code = 413) 0 /100 WBC 0 -0 (CELLAVISION MANUAL DIFF)2018-08-02 10:13:00* Test Item Value Reference Range Interpretation Comments NEUTROPHILS - REL (CELLAVISION)(BEAKER) (test code = 2816) 76 % MONOCYTES - REL (CELLAVISION)(BEAKER) (test code = 2818) 2 % BANDS - REL (CELLAVISION)(BEAKER) (test code = 2826) 22 % 0 -10 H NEUTROPHILS - ABS (CELLAVISION)(BEAKER) (test code = 2830) 25.54 K/ul 1.56-6.13 H MONOCYTES - ABS (CELLAVISION)(BEAKER) (test code = 2832) 0.67 K/uL 0.24-0.36 H BANDS - ABS (CELLAVISION)(BEAKER) (test code = 2840) 7.39 K/uL 0 .00-0.80 H TOTAL COUNTED (BEAKER) (test code = 1351) 100 WBC MORPHOLOGY (BEAKER) (test code = 487) Normal PLT MORPHOLOGY (BEAKER) (test code = 486) Normal POLYCHROMATOPHILLIC RBCS(BEAKER) (test code = 478) 2+ moderate ANISOCYTOSIS (BEAKER) (test code = 961) 2+ moderate POIKILOCYTES (BEAKER) (test code = 966) 2+ moderate ARTIFACT (CELLAVISION)(BEAKER) (test code = 3432) Present PLATELET CONCENTRATION (CELLAVISION)(BEAKER) (test code = 3438) Dec reased Received comment: User comments: Slide comments: BLOOD GAS, [id number] 09:49:00* Test Item Value Reference Range Interpretation Comments PH ARTERIAL (BEAKER) (test code = 383) 7.44 7.35-7.45 PCO2 ARTERIAL (BEAKER) (test code = 384) 22 mmHg 35-45 L PO2 ARTERIAL (BEAKER) (test code = 385) 128 mmHg 80-90 H O2 SATURATION ARTERIAL (BEAKER) (test code = 386) 98.7 % 96.0 -97.0 H HCO3 ARTERIAL (BEAKER) (test code = 388) 15 mmol/L 21-29 L BASE EXCESS ARTERIAL (BEAKER) (test code = 387) -7.8 mmol/L -2.0-3 .0 L PATIENT TEMPERATURE (BEAKER) (test code = 1818) 37.9 C FIO2 (BEAKER) (test code = 1819) 21.0 % Benkelman [id number] 09:47:00Comment Bed:16>100,000 CFU/ML.^>100,000 CFU/ML.^L Urine [id number] 09:47:00* Test Item Value Reference Range Interpretation Comments Urine culture (test code = 630-4) MIXED [place]. Comment Bed:16CREATININE, RANDOM [id number] 09:42:00* Test Item Value Reference Range Interpretation Comments CREATININE URINE (BEAKER) (test code = 375) 79.5 mg/dL Reference Range: No NormalsSODIUM, RANDOM [id number] 09:42:00* Test Item Value Reference Range Interpretation Comments SODIUM URINE (BEAKER) (test code = 243) 57 meq/L Reference Range: No NormalsUREA NITROGEN, RANDOM [id number] 09:42:00* Test Item Value Reference Range Interpretation Comments UREA NITROGEN URINE (BEAKER) (test code = 538) 338 mg/dL Reference Range: No NormalsRAD, CHEST, 1 VIEW, NON [id number] 07:43:00Reason for exam:->sepsisShould this be performed at the bedside?->YesFINAL REPORT Portable chest. CLINICAL HISTORY: sepsis. COMPARISON STUDY: Chest x-ray from yesterday. FINDINGS: The cardiac silhouette is prominent. The pulmonary parenchyma demonstrates no focal opacity. A right jugul ar line remains. No pneumothorax is seen. Degenerative changes are noted. IMPRES JOSE CARLOS: No significant change. Signed: Gallito Abebe Verified Date/Time : 08/02/2018 07:43:01 Reading Location: [facility] Radiology Reading Room IC ACID, ARTERIAL, WHOLE [id number] 07:07:00* Test Item Value Reference Range Interpretation Comments LACTATE BLOOD ARTERIAL (2) (JIM) (test code = 2874) 3.9 mmol/L 0.5-2.2 H Packed RBC Leukored [id number] 06:53:[id number] ON PCL PRSMD TRFSD 08/01/18 0652 ABO + Rh [id number] 06:53:00 * Test Item Value Reference Range Interpretation Comments ABO + Rh Bld (test code = 882-1) O POSITIVE EMERGENCY RELEASE PT TRANSFERRED TS DONE ON CBC TUBEIAT Comp-Sp Reag SerPl Ql 2018-08-02 06:53:00* Test Item Value Reference Range Interpretation Comments IAT Comp-Sp Reag SerPl Ql (test code = 1003-3) NEGATIVE POCT-GLUCOSE [id number] 06:09:00* Test Item Value Reference Range Interpretation Comments POC-GLUCOSE METER (JIM) (test code = 1538) 84 mg/dL 70-110 TESTED AT [address] [address] OSMOLALITY, [id number] 04:23:00* Test Item Value Reference Range Interpretation Comments OSMOLALITY URINE (BEAKER) (test code = 614) 369 mOsm/kg 40-1,400 BASIC METABOLIC [id number] 04:23:00* Test Item Value Reference Range Interpretation Comments SODIUM (BEAKER) (test code = 381) 142 meq/L 136-145 POTASSIUM (BEAKER) (test code = 379) 4.3 meq/L 3.5-5.1 CHLORIDE (BEAKER) (test code = 382) 114 meq/L 98-107 H CO2 (BEAKER) (test code = 355) 18 meq/L 22-29 L BLOOD UREA NITROGEN (BEAKER) (test code = 354) 12 mg/dL 7-21 CREATININE (BEAKER) (test code = 358) 1.09 mg/dL 0.57-1.25 GLUCOSE RANDOM (BEAKER) (test code = 652) 98 mg/dL 70-105 CALCIUM (BEAKER) (test code = 697) 8.5 mg/dL 8.4-10.2 EGFR (BEAKER) (test code = 1092) mL/min/1.73 sq m INSUFFICIENT CLINICAL DATA TO CALCULATE ESTIMATED GFR. [id number] 04:22:00* Test Item Value Reference Range Interpretation Comments PHOSPHORUS (BEAKER) (test code = 604) 4.1 mg/dL 2.3-4.7 [id number] 04:22:00* Test Item Value Reference Range Interpretation Comments MAGNESIUM (BEAKER) (test code = 627) 2.5 mg/dL 1.6-2.6 HEPATIC FUNCTION [id number] 04:22:00* Test Item Value Reference Range Interpretation Comments TOTAL PROTEIN (BEAKER) (test code = 770) 6.0 gm/dL 6.0-8.3 ALBUMIN (BEAKER) (test code = 1145) 2.8 g/dL 3.5-5.0 L BILIRUBIN TOTAL (BEAKER) (test code = 377) 1.6 mg/dL 0.2-1.2 H BILIRUBIN DIRECT (BEAKER) (test code = 706) 1.3 mg/dL 0.1-0.5 H ALKALINE PHOSPHATASE (BEAKER) (test code = 346) 78 U/L 40-150 AST (SGOT) (BEAKER) (test code = 353) 127 U/L 5-34 H ALT (SGPT) (BEAKER) (test code = 347) 81 U/L 6-55 H [id number] 04:11:00* Test Item Value Reference Range Interpretation Comments PROTIME (BEAKER) (test code = 759) 21.5 seconds 11.7-14.7 H INR (BEAKER) (test code = 370) 1.9 <=5.9 PARTIAL THROMBOPLASTIN TIME (BEAKER) (test code = 760) 38.6 seconds 22.5-36.0 H RECOMMENDED COUMADIN/WARFARIN INR THERAPY RANGESSTANDARD DOSE: 2.0 - 3.0 Inclu rachel: PROPHYLAXIS for venous thrombosis, systemic embolization; TREATMENT for salena ous thrombosis and/or pulmonary embolus.HIGH RISK: Target INR is 2.5-3.5 for pat ients with mechanical heart valves.THROMBOELASTOGRAPH (TEG)2018-08-02 01:36:00* Test Item Value Reference Range Interpretation Comments TEG ACTIVATED CLOTTING TIME (BEAKER) (test code = 1407) 5.6 minutes 4.0-7.0 TEG FIBRINOGEN ACTIVITY (BEAKER) (test code = 1408) 80.4 degrees 61 .0-73.0 H TEG PLT. AGGREGATION (BEAKER) (test code = 1409) 59.4 MM 55.0- 65.0 TEG FIBRINOLYSIS (BEAKER) (test code = 1410) 0.1 % 0.0-5.0 TGH ACTIVATED CLOTTING TIME (BEAKER) (test code = 1411) 5.4 minutes 4.0-7.0 TGH FIBRINOGEN ACTIVITY (BEAKER) (test code = 1412) 77.1 degrees 61 .0-73.0 H TGH PLT. AGGREGATION (BEAKER) (test code = 1413) 62.9 MM 55.0- 65.0 TGH FIBRINOLYSIS (BEAKER) (test code = 1414) 4.2 % 0.0-5.0 [id number] 00:02:00* Test Item Value Reference Range Interpretation Comments FIBRINOGEN LEVEL (BEAKER) (test code = 658) 495 mg/dl 225-434 H PT/[id number] 00:02:00* Test Item Value Reference Range Interpretation Comments PROTIME (BEAKER) (test code = 759) 22.6 seconds 11.7-14.7 H INR (BEAKER) (test code = 370) 2.0 <=5.9 PARTIAL THROMBOPLASTIN TIME (BEAKER) (test code = 760) 37.0 seconds 22.5-36.0 H RECOMMENDED COUMADIN/WARFARIN INR THERAPY RANGESSTANDARD DOSE: 2.0 - 3.0 Inclu rachel: PROPHYLAXIS for venous thrombosis, systemic embolization; TREATMENT for salena ous thrombosis and/or pulmonary embolus.HIGH RISK: Target INR is 2.5-3.5 for pat ients with mechanical heart valves.LACTIC ACID, ARTERIAL, WHOLE [id number] 23:54:00* Test Item Value Reference Range Interpretation Comments LACTATE BLOOD ARTERIAL (2) (BEAKER) (test code = 2874) 2.1 mmol/L 0.5-2.2 CBC W/PLT COUNT & AUTO [id number] 23:48:00* Test Item Value Reference Range Interpretation Comments WHITE BLOOD CELL COUNT (BEAKER) (test code = 775) 35.9 K/ L 3.5- 10.5 H RED BLOOD CELL COUNT (BEAKER) (test code = 761) 3.21 M/ L 3.93-5 .22 L HEMOGLOBIN (BEAKER) (test code = 410) 7.0 GM/DL 11.2-15.7 L HEMATOCRIT (BEAKER) (test code = 411) 23.1 % 34.1-44.9 L MEAN CORPUSCULAR VOLUME (BEAKER) (test code = 753) 72.0 fL 79. 4-94.8 L MEAN CORPUSCULAR HEMOGLOBIN (BEAKER) (test code = 751) 21.8 pg 25.6-32.2 L MEAN CORPUSCULAR HEMOGLOBIN CONC (BEAKER) (test code = 752) 30.3 GM/DL 32.2-35.5 L RED CELL DISTRIBUTION WIDTH (BEAKER) (test code = 412) 17.9 % 11.7-14.4 H PLATELET COUNT (BEAKER) (test code = 756) 136 K/CU MM 150-450 L MEAN PLATELET VOLUME (BEAKER) (test code = 754) 11.7 fL 9.4-12 .3 NUCLEATED RED BLOOD CELLS (BEAKER) (test code = 413) 0 /100 WBC 0 -0 NEUTROPHILS RELATIVE PERCENT (BEAKER) (test code = 429) 86 % LYMPHOCYTES RELATIVE PERCENT (BEAKER) (test code = 430) 4 % MONOCYTES RELATIVE PERCENT (BEAKER) (test code = 431) 3 % EOSINOPHILS RELATIVE PERCENT (BEAKER) (test code = 432) 0 % BASOPHILS RELATIVE PERCENT (BEAKER) (test code = 437) 0 % NEUTROPHILS ABSOLUTE COUNT (BEAKER) (test code = 670) 30.93 K/ L 1.56-6.13 H LYMPHOCYTES ABSOLUTE COUNT (BEAKER) (test code = 414) 1.53 K/ L 1.18-3.74 MONOCYTES ABSOLUTE COUNT (BEAKER) (test code = 415) 0.91 K/ L 0. 24-0.36 H EOSINOPHILS ABSOLUTE COUNT (BEAKER) (test code = 416) 0.00 K/ L 0.04-0.36 L BASOPHILS ABSOLUTE COUNT (BEAKER) (test code = 417) 0.07 K/ L 0. 01-0.08 IMMATURE GRANULOCYTES-RELATIVE PERCENT (BEAKER) (test code = 2801) 7 % 0-1 H POCT-GLUCOSE [id number] 23:35:00* Test Item Value Reference Range Interpretation Comments POC-GLUCOSE METER (BEAKER) (test code = 1538) 122 mg/dL 70-110 H TESTED AT [address] [address] HEMOGLOBIN AND [id number] 22:44:00* Test Item Value Reference Range Interpretation Comments HEMOGLOBIN (BEAKER) (test code = 410) 7.4 GM/DL 11.2-15.7 L HEMATOCRIT (BEAKER) (test code = 411) 24.6 % 34.1-44.9 L CALCIUM, [id number] 22:42:00* Test Item Value Reference Range Interpretation Comments CALCIUM IONIZED (BEAKER) (test code = 698) 1.04 mmol/L 1.12-1.27 L PH, BLOOD (BEAKER) (test code = 1810) 7.44 LACTIC ACID, ARTERIAL, WHOLE [id number] 19:43:00* Test Item Value Reference Range Interpretation Comments LACTATE BLOOD ARTERIAL (2) (BEAKER) (test code = 2874) 2.4 mmol/L 0.5-2.2 H [id number] 19:39:00* Test Item Value Reference Range Interpretation Comments PROTIME (BEAKER) (test code = 759) 22.9 seconds 11.7-14.7 H INR (BEAKER) (test code = 370) 2.0 <=5.9 PARTIAL THROMBOPLASTIN TIME (BEAKER) (test code = 760) 37.1 seconds 22.5-36.0 H RECOMMENDED COUMADIN/WARFARIN INR THERAPY RANGESSTANDARD DOSE: 2.0 - 3.0 Inclu rachel: PROPHYLAXIS for venous thrombosis, systemic embolization; TREATMENT for salena ous thrombosis and/or pulmonary embolus.HIGH RISK: Target INR is 2.5-3.5 for pat ients with mechanical heart valves.BASIC METABOLIC [id number] 16:52:00* Test Item Value Reference Range Interpretation Comments SODIUM (BEAKER) (test code = 381) 138 meq/L 136-145 POTASSIUM (BEAKER) (test code = 379) 4.3 meq/L 3.5-5.1 CHLORIDE (BEAKER) (test code = 382) 110 meq/L 98-107 H CO2 (BEAKER) (test code = 355) 17 meq/L 22-29 L BLOOD UREA NITROGEN (BEAKER) (test code = 354) 11 mg/dL 7-21 CREATININE (BEAKER) (test code = 358) 1.28 mg/dL 0.57-1.25 H GLUCOSE RANDOM (BEAKER) (test code = 652) 114 mg/dL 70-105 H CALCIUM (BEAKER) (test code = 697) 7.8 mg/dL 8.4-10.2 L EGFR (BEAKER) (test code = 1092) mL/min/1.73 sq m INSUFFICIENT CLINICAL DATA TO CALCULATE ESTIMATED GFR. [id number] 16:42:00* Test Item Value Reference Range Interpretation Comments PHOSPHORUS (BEAKER) (test code = 604) 3.8 mg/dL 2.3-4.7 [id number] 16:42:00* Test Item Value Reference Range Interpretation Comments MAGNESIUM (BEAKER) (test code = 627) 1.1 mg/dL 1.6-2.6 L LACTIC ACID, ARTERIAL, WHOLE [id number] 13:24:00* Test Item Value Reference Range Interpretation Comments LACTATE BLOOD ARTERIAL (2) (BEAKER) (test code = 2874) 2.2 mmol/L 0.5-2.2 HEMOGLOBIN [id number] 13:23:00* Test Item Value Reference Range Interpretation Comments HEMOGLOBIN A1C (JIM) (test code = 368) 5.4 % 4.3-6.1 Abdomen Pelvis W [id number] 12:24:00[facility] [place] [address] [facility] REPORT Name: DEBBIE SANZ Acct Number: [id number] :1985 Age:33 Sex:F Ord Phys: Florin Conley MD Unit Number: [id number] [facility] Dr: NONE Status: DEP ER Exam Date: 08/01/18 EXAM DESCRIPTION: CT abdomen pelvis with IV contrast CLINICAL HISTORY: 33-year-old female status post gastric bypass two weeks ago, abdominal pain TECHNIQUE: Axial CT imaging of the abdomen and pelvis was performed following the administration of intravenous contrast.. Sagittal and coronal reconstructed images were then performed. The CT study is performed according to ALARA (as low as reasonably achievable) or ALARA/IMAGE GENTLY, with automatic adjustment of mA and/or kV according to patient size. Performed on: 08/01/2018 at 5:12 AM. COMPARISON: None FINDINGS: Lung bases: The lung bases are clear. Liver: The liver is normal in size and configuration. There are linear lucencies within the left hepatic lobe which extend to the periphery consistent with portal venous gas. Liver attenuation is within normal limits. Spleen: The spleen is mildly enlarged and measures 14 cm in craniocaudal dimension. No focal splenic abnormalities are identified. Gallbladder and bile duct: The gallbladder is well distended and unremarkable. There is no biliary ductal dilatation. Pancreas: The pancreas is grossly normal in size and configuration. Adrenal Glands: The adrenal glands are normal in size and configuration. Kidneys: The kidneys are normal in size and configuration. There is no evidence of hydronephrosis. There is no evidence of nephrolithiasis. No definite solid or cystic renal mass lesions are identified. Stomach: There are postsurgical changes of the stomach consistent with gastric bypass surgery. There is infiltration of the fat surrounding the stomach consistent with edema and inflammation. There is no definite hiatal hernia. Evaluation of the stomach and proximal small bowel is limited without oral con trast. Bowel: The bowel gas pattern is non specific and non obstructive. There is evidence of oral contrast within the distal small bowel of unclear etiology. There is no evidence of pneumatosis intestinalis or pneumatosis coli. There is scattered fluid in the colon which is nonspecific but can be seen with enteritis . Appendix: There is no CT evidence to suggest acute appendicitis. Free air: There is no evidence of free air. Free fluid: There is no evidence of alon e fluid. Vasculature: The aorta is normal in caliber and contour. The inferior vena cava is grossly unremarkable. Lymphadenopathy: No pathologic lymphadenop athy is identified. Bladder: The bladder is decompressed on this examinati on. Reproductive: The uterus is grossly within normal limits. There has been b ilateral tubal ligation. Bones: No acute osseous abnormalities are identified. Soft tissues: No focal soft tissue abnormalities are identified. IMPRES JOSE CARLOS: 1. Status post recent gastric bypass surgery approximately two weeks ago. There is portal venous gas in the left hepatic lobe which raises concern for me senteric ischemia. Findings may be related to an infectious or inflammatory proc ess involving the surgical site in the central upper abdomen at the site of prio r gastric bypass. 2. Postsurgical changes of the stomach with surrounding mese nteric inflammation and edema consistent with inflammatory changes. No discrete abscess is identified. 3. Scattered fluid throughout the colon which is nonspe cific but can be seen with diarrhea. 4. Mild splenomegaly. 5. There is absen t oral contrast within the upper GI tract but there is evidence of oral contrast involving the distal small bowel of unclear etiology. These findings were discussed with Dr. Conley on 08/01/2018 at 6:00 AM central time Electronica lly signed by: Lisa Alexandra DO 08/01/2018 6:08 AM GRIEF COUNSELLOR 0 Due to temporary technical issues with the PACS/Fluency reporting sy stem, reports are being signed by the in house radiologist as a courtesy to [facility] re prompt reporting. The interpreting radiologist is fully responsible for the c ontent of the report. Signed By: Anival Garcia MD Signed AT: 9 1224 URINALYSIS W/ REFLEX URINE [id number] 12:10:00* Test Item Value Reference Range Interpretation Comments COLOR (BEAKER) (test code = 470) Yellow CLARITY (BEAKER) (test code = 469) Hazy SPECIFIC GRAVITY UA (BEAKER) (test code = 468) 1.027 1.001-1 .035 PH UA (BEAKER) (test code = 467) 5.0 5.0-8.0 PROTEIN UA (BEAKER) (test code = 464) 20 mg/dL Negative A GLUCOSE UA (BEAKER) (test code = 365) Negative Negative KETONES UA (BEAKER) (test code = 371) Negative Negative BILIRUBIN UA (BEAKER) (test code = 462) Negative Negative BLOOD UA (BEAKER) (test code = 461) Trace Negative A NITRITE UA (BEAKER) (test code = 465) Negative Negative LEUKOCYTE ESTERASE UA (BEAKER) (test code = 466) Negative Negat luigi UROBILINOGEN UA (BEAKER) (test code = 463) 0.2 mg/dL 0.2-1.0 RBC UA (BEAKER) (test code = 519) 1 /HPF WBC UA (BEAKER) (test code = 520) 4 /HPF BACTERIA (BEAKER) (test code = 517) Rare HYALINE CASTS (BEAKER) (test code = 514) 2 /LPF CASTS (BEAKER) (test code = 1579) 2 /LPF CRYSTALS, URINE (BEAKER) (test code = 1521) Rare SOURCE(BEAKER) (test code = 2795) SCREEN, [id number] 12:06:00* Test Item Value Reference Range Interpretation Comments TEST URINE (BEAKER) (test code = 583) Negative RAD, CHEST, 1 VIEW, NON [id number] 11:08:00Reason for exam:->Central Line PlacementShould this be performed at the bedside?->YesFINAL REPORT TECHNIQUE: Frontal view of the chest. INDICATION: 33-year-old woman after central line placement. COMPARISON: None. FINDINGS: LINES/TUBES: The tip of a right internal jugular central venous catheter projects over the expected region of the cavoatrial junction. LUNGS: Low lung volumes, which accentuate the cardiomediastinal silhouette and pulmonary vasculature. No consolidation or pulmonary edema. PLEURA: No pneumothorax or significant pleural effusion. HEART AND MEDIASTINUM: The cardiac silhouette appears prominent, however this is likely in part artifactual secondary to low lung volumes and AP technique. SOFT TISSUES AND BONES: Unremarkable. IMPRESSION:Lines/tubes as above. Otherwise, low lung volumes without acute cardiopulmonary abnormalities. Signed: Pj Granados MDReport Verified Date/Time: 08/01/2018 11:08:49 Reading Location: [facility] Radiology Reading Room W/PLT COUNT & AUTO [id number] 10:07:00* Test Item Value Reference Range Interpretation Comments WHITE BLOOD CELL COUNT (BEAKER) (test code = 775) 20.2 K/ L 3.5- 10.5 H RED BLOOD CELL COUNT (BEAKER) (test code = 761) 3.87 M/ L 3.93-5 .22 L HEMOGLOBIN (BEAKER) (test code = 410) 8.3 GM/DL 11.2-15.7 L HEMATOCRIT (BEAKER) (test code = 411) 28.4 % 34.1-44.9 L MEAN CORPUSCULAR VOLUME (BEAKER) (test code = 753) 73.4 fL 79. 4-94.8 L MEAN CORPUSCULAR HEMOGLOBIN (BEAKER) (test code = 751) 21.4 pg 25.6-32.2 L MEAN CORPUSCULAR HEMOGLOBIN CONC (BEAKER) (test code = 752) 29.2 GM/DL 32.2-35.5 L RED CELL DISTRIBUTION WIDTH (BEAKER) (test code = 412) 17.8 % 11.7-14.4 H PLATELET COUNT (BEAKER) (test code = 756) 143 K/CU MM 150-450 L MEAN PLATELET VOLUME (BEAKER) (test code = 754) 11.4 fL 9.4-12 .3 NUCLEATED RED BLOOD CELLS (BEAKER) (test code = 413) 0 /100 WBC 0 -0 (CELLAVISION MANUAL DIFF)2018-08-01 10:07:00* Test Item Value Reference Range Interpretation Comments NEUTROPHILS - REL (CELLAVISION)(BEAKER) (test code = 2816) 82 % LYMPHOCYTES - REL (CELLAVISION)(BEAKER) (test code = 2817) 1 % BANDS - REL (CELLAVISION)(BEAKER) (test code = 2826) 17 % 0 -10 H NEUTROPHILS - ABS (CELLAVISION)(BEAKER) (test code = 2830) 16.56 K/ul 1.56-6.13 H LYMPHOCYTES - ABS (CELLAVISION)(BEAKER) (test code = 2831) 0.20 K/ul 1.18-3.74 L BANDS - ABS (CELLAVISION)(BEAKER) (test code = 2840) 3.43 K/uL 0 .00-0.80 H TOTAL COUNTED (BEAKER) (test code = 1351) 100 WBC MORPHOLOGY (BEAKER) (test code = 487) Normal PLT MORPHOLOGY (BEAKER) (test code = 486) Normal ANISOCYTOSIS (BEAKER) (test code = 961) 3+ many MICROCYTES (BEAKER) (test code = 965) 3+ many POIKILOCYTES (BEAKER) (test code = 966) 1+ few ARTIFACT (CELLAVISION)(BEAKER) (test code = 3432) Present PLATELET CONCENTRATION (CELLAVISION)(BEAKER) (test code = 3438) Dec reased Received comment: User comments: Slide comments: TROPONIN [id number] 10:04:00* Test Item Value Reference Range Interpretation Comments TROPONIN I (BEAKER) (test code = 397) 0.03 ng/mL 0.00-0.03 Troponin I (TnI) levels must be interpreted in the context of the presenting sym ptoms and the clinical findings. Elevated TnI levels indicate myocardial damage, but are not specific for ischemic heart disease. Elevated TnI levels are seen i n patients with other cardiac conditions (including myocarditis and congestive h eart failure), and slight TnI elevations occur in patients with other conditions , including sepsis, renal failure, acidosis, acute neurological disease, and per sistent tachyarrhythmia.BASIC METABOLIC [id number] 10:04:00* Test Item Value Reference Range Interpretation Comments SODIUM (BEAKER) (test code = 381) 137 meq/L 136-145 POTASSIUM (BEAKER) (test code = 379) 3.4 meq/L 3.5-5.1 L CHLORIDE (BEAKER) (test code = 382) 108 meq/L 98-107 H CO2 (BEAKER) (test code = 355) 14 meq/L 22-29 L BLOOD UREA NITROGEN (BEAKER) (test code = 354) 9 mg/dL 7-21 CREATININE (BEAKER) (test code = 358) 1.32 mg/dL 0.57-1.25 H GLUCOSE RANDOM (BEAKER) (test code = 652) 108 mg/dL 70-105 H CALCIUM (BEAKER) (test code = 697) 7.4 mg/dL 8.4-10.2 L EGFR (BEAKER) (test code = 1092) mL/min/1.73 sq m INSUFFICIENT CLINICAL DATA TO CALCULATE ESTIMATED GFR. [id number] 09:57:00* Test Item Value Reference Range Interpretation Comments PHOSPHORUS (BEAKER) (test code = 604) 2.6 mg/dL 2.3-4.7 [id number] 09:57:00* Test Item Value Reference Range Interpretation Comments MAGNESIUM (BEAKER) (test code = 627) 1.2 mg/dL 1.6-2.6 L HEPATIC FUNCTION [id number] 09:57:00* Test Item Value Reference Range Interpretation Comments TOTAL PROTEIN (BEAKER) (test code = 770) 6.0 gm/dL 6.0-8.3 ALBUMIN (BEAKER) (test code = 1145) 2.8 g/dL 3.5-5.0 L BILIRUBIN TOTAL (BEAKER) (test code = 377) 2.1 mg/dL 0.2-1.2 H BILIRUBIN DIRECT (BEAKER) (test code = 706) 1.6 mg/dL 0.1-0.5 H ALKALINE PHOSPHATASE (BEAKER) (test code = 346) 93 U/L 40-150 AST (SGOT) (BEAKER) (test code = 353) 63 U/L 5-34 H ALT (SGPT) (BEAKER) (test code = 347) 33 U/L 6-55 [id number] 09:57:00* Test Item Value Reference Range Interpretation Comments AMYLASE (BEAKER) (test code = 349) 313 U/L 25-125 H [id number] 09:57:00* Test Item Value Reference Range Interpretation Comments LIPASE (BEAKER) (test code = 749) 74 U/L 8-78 ABO + Rh [id number] 09:55:00* Test Item Value Reference Range Interpretation Comments ABO + Rh Bld (test code = 882-1) O POSITIVE LACTIC ACID, ARTERIAL, WHOLE [id number] 09:50:00* Test Item Value Reference Range Interpretation Comments LACTATE BLOOD ARTERIAL (2) (BEAKER) (test code = 2874) 4.6 mmol/L 0.5-2.2 H [id number] 09:38:00* Test Item Value Reference Range Interpretation Comments FIBRINOGEN LEVEL (BEAKER) (test code = 658) 485 mg/dl 225-434 H [id number] 09:38:00* Test Item Value Reference Range Interpretation Comments PARTIAL THROMBOPLASTIN TIME (BEAKER) (test code = 760) 40.9 seconds 22.5-36.0 H PROTHROMBIN TIME/[id number] 09:37:00* Test Item Value Reference Range Interpretation Comments PROTIME (BEAKER) (test code = 759) 22.5 seconds 11.7-14.7 H INR (BEAKER) (test code = 370) 2.0 <=5.9 RECOMMENDED COUMADIN/WARFARIN INR THERAPY RANGESSTANDARD DOSE: 2.0 - 3.0 Inclu rachel: PROPHYLAXIS for venous thrombosis, systemic embolization; TREATMENT for salena ous thrombosis and/or pulmonary embolus.HIGH RISK: Target INR is 2.5-3.5 for pat ients with mechanical heart valves.CALCIUM, [id number] 09:27:00* Test Item Value Reference Range Interpretation Comments CALCIUM IONIZED (BEAKER) (test code = 698) 0.97 mmol/L 1.12-1.27 L PH, BLOOD (BEAKER) (test code = 1810) 7.40 Chest Single [id number] 08:19:00[place] [address] RADIOLOGY SERVICES REPORT Name: DEBBIE SANZ Acct Number: [id number] :[id number] Age:33 Sex:F Ord Phys: Florin Conley MD Unit Number: [id number] [address] Dr: NONE Status: DEP ER ER Exam Date: 08/01/18 EXAM DESCRIPTION: RAD - Chest Single View - 08/01/2018 3:44 am CLINICAL HISTORY: FEVER Chest pain. COMPARISON: No comparisons FINDINGS: Portable technique limits examination quality. The lungs are grossly clear. The heart is normal in size. No displaced fractures. IMPRESSION: No acute intrathoracic process suspected. Signed By: Anival Garcia MD Signed AT: 08/01/18 0819 Lactate [Moles/volume] in Serum or [id number] 07:00:00* Test Item Value Reference Range Interpretation Comments Lactate [Moles/volume] in Serum or Plasma (test code = 2524- 7) 6.1 mmol/L 0.4-2.0 Repeated & Called to BOB BHARDWAJ RN on 08/01/[address] [facility] Was there 100% Readback? YES Complete blood count (CBC) with automated white blood cell (WBC) differential 2018-08-01 04:54:00* Test Item Value Reference Range Interpretation Comments White blood cell count (test code = ICQ6517) 6.4 4.3-10.9 Blood erythrocytes count (number/volume) (test code = 15643- 1) 4.34 M/ul 3.86-4.86 Hemoglobin measurement (test code = FTN6332) 9.3 g/dL 12.0-15.0 L Blood hematocrit (volume fraction) (test code = 69544-2) 29.4 % 36.0-45.0 L MCV (test code = FLN0026) 67.8 fL 80-100 L 21 .5 MCHC (test code = MCHC) 31.8 g/dL 32.0-36.0 L Platelets (test code = PLT) 214 152-406 Red Cell Distribution Width (test code = RDW) 17.7 % 12.1-15. 2 H Blood platelet mean volume (test code = 70066-8) 9.2 fL 7.6-1 1.3 Neutrophils % (test code = MAL%) 89.7 % 41.7-73.7 H Lymphocytes/leuk NFr Bld (test code = 26971-0) 9.2 % 15.3-44 .8 L Monocyte percentage (test code = 5905-5) 0.8 % 3.3-12.3 L Eosinophil % (test code = 713-8) 0.1 % 0-4.4 Basophil % (test code = 45188-0) 0.2 % 0-1.3 Absolute neutrophil count (test code = 751-8) 5.7 1.8-8.0 Absolute lymphocyte count (test code = 13447-5) 0.6 0.7-4. 9 L Absolute monocyte count (test code = 742-7) 0.0 0.1-1.3 L Absolute Eosinophils (test code = EOA) 0.0 0-0.5 Absolute Basophils (test code = BASA) 0.0 0-0.5 Blood smear scan ([facility])2018-08-01 04:54:00* Test Item Value Reference Range Interpretation Comments Giant platelet detection (test code = 5908-9) FEW Blood morphology interpretation narrative (test code = 32059-6) NOTED NOT SEEN Microcytosis evaluation panel (test code = TPF4482) 1+ Hypochromatic red blood cell detection (test code = 89140-3) 1+ Blood polychromasia detection by light microscopy (test code = 05640-1) SLIGHT [id number] 04:33:00* Test Item Value Reference Range Interpretation Comments Procalcitonin (test code = PROCAL) 1.97 ng/mL <0.50 H Reference Range: </=0.5 ng/mL Systemic infection (sepsis) is not likely. Local bacterial infection is possible. >0.5 to </=2.0 ng/mL Systemic infection (sepsis) is possible, but other conditions are known to elevate PCT as well. > 2 ng/mL Systemic infection (sepsis) is likely, unless other causes are known. >10 ng/mL Important systemic inflammatory response, almost exclusively due to severe bacterial sepsis or septic shock. Lactate [Moles/volume] in Serum or [id number] 04:33:00* Test Item Value Reference Range Interpretation Comments Lactate [Moles/volume] in Serum or Plasma (test code = 2524- 7) 7.2 mmol/L 0.4-2.0 HH REFLEX TESTING INITIATED* Sepsis Protocol Value +/> 2.0 mmol/L Critical Value >= 4.0 mmol/L Repeated & Called to MARIALUISA LEIVA RN on 08/01/18 at 0432 by [email or web address] Was there 100% Readback? Y Comment Bed:16Microscopic examination of [id number] 04:13:00* Test Item Value Reference Range Interpretation Comments Urine WBC (test code = UWBC) 5-10 <5 AA Urine sediment erythrocyte count by micr oscopy (number/high power field) (test code = 70521-2) <5 NONE SEEN Bacteria detection in urine sediment by light microsco py (test code = 45049-6) >50 <20 AA Sqamous Epithelial (test code = SQEP) 20-50 NONE SEEN AA Urinalysis with reflex to culture (test code = 83224-9) NOT NEEDED Culture was ordered previously. Influenza Type A [id number] 04:11:00* Test Item Value Reference Range Interpretation Comments FLU A ----- (test code = FLUA) NEGATIVE (could be belo w detectable limits, suggest culture) Influenza Type B [id number] 04:11:00* Test Item Value Reference Range Interpretation Comments FLU B ----- (test code = FLUB) NEGATIVE (could be belo w detectable levels, suggest culture) Basic Metabolic [id number] 04:11:00* Test Item Value Reference Range Interpretation Comments Serum or plasma sodium measurement (moles/volume) (lexi t code = 2951-2) 136 mmol/L 136-145 Potassium [Moles/volume] in Serum or Plasma (test code = 282 3-3) 3.6 mmol/L 3.5-5.1 Chloride [Moles/volume] in Serum or Plasma (test code = 2075 -0) 102 mmol/L 98-107 Carbon dioxide, total [Moles/volume] in Serum or Plasm a (test code = 2027-) 18 mmol/L 21-32 L Glucose [Mass/volume] in Serum or Plasma (test code = 2345-7) 11 7 mg/dL 74-106 H Urea nitrogen [Mass/volume] in Serum or Plasma (test code = 3094-0) 9 mg/dL 7-18 Creatinine [Mass/volume] in Serum or Plasma (test code = 216 0-0) 1.35 mg/dL 0.55-1.3 H Glomerular Filtration Rate (test code = GFR) 45 mL =/>90 L FOR CHRONIC KIDNEY DISEASE: GFR STAGE DESCRIPTION =/>90 STAGE 1 NORMAL--OR-- MINIMAL KIDNEY DAMAGE WITH NORMAL GFR 60-89 STAGE 2 MILD DECREASE IN GFR 30-59 STAGE 3 MODERATE DECREASE IN GFR 15-29 STAGE 4 SEVERE DECREASE IN GFR <15 STAGE 5 KIDNEY FAILURE The Glomerular Filtration Rate (GFR) has been calculated using the IDMS- Traceable MDRD Study Equation. Calcium [Mass/volume] in Serum or Plasma (test code = 25631- 6) 8.2 mg/dL 8.5-10.1 L Liver (Hepatic) [id number] 04:11:00* Test Item Value Reference Range Interpretation Comments Aspartate aminotransferase [Enzymatic ac tivity/volume] in Serum or Plasma by With P-5 (test code = 43458-5) 25 U/L 15-37 Alanine aminotransferase [Enzymatic acti vity/volume] in Serum or Plasma by With P-5'- (test code = 1743-4) 21 U/L 12-78 Alkaline phosphatase [Enzymatic activity /volume] in Serum or Plasma (test code = 6768-6) 161 U/L 45-117 H Bilirubin.total [Mass/volume] in Serum or Plasma (test code = 1975-2) 1.6 mg/dL 0.2-1.0 H Bilirubin.direct [Mass/volume] in Serum or Plasma (lexi t code = 1968-7) 1.1 mg/dL 0-0.2 H Protein [Mass/volume] in Serum or Plasma (test code = 2885-2) 8. 2 g/dL 6.4-8.2 Albumin [Mass/volume] in Serum or Plasma by Bromocresol purple (BCP) dye binding meth (test code = 62837-5) 3.0 g/dL 3.4-5.0 L Globulin (test code = GLOB) 5.2 g/dL 2.3-3.5 H Albumin/Globulin Ratio (test code = A/G) 0.6 1.1-1.8 L Lipase [Enzymatic activity/volume] in Serum or [id number] 04:11:00* Test Item Value Reference Range Interpretation Comments Lipase [Enzymatic activity/volume] in Serum or Plasma (test code = 3040-3) 327 U/L 73-393 Streptococcus group A screen [id number] 04:10:00* Test Item Value Reference Range Interpretation Comments Streptococcus group A screen rapid (test code = WWJ8887) NEGATIVE Urine test at point of [id number] 03:44:00* Test Item Value Reference Range Interpretation Comments Urine Test (test code = UPG) NEG NEG Urine specific gravity measurement (test code = 2965-2) 1.025 1.005-1.030 Tested by: jtb BLOOD: 1+ GLUCOSE: NEG KETONES: 2+ LEUKOCYTES: TRACE NITRITE: NEG PH: 5.5 PROTEIN: 2+ jtb NEG jtb 1+ NEG 2+ TRACE NEG 5.5 2+ Y 1.025Urine dipstick testing at [id number]-ox-[id number] 03:44:00* Test Item Value Reference Range Interpretation Comments Urine glucose detection (test code = 2349-9) Negative NEG Urine Ketones (test code = UKET) 2+ NEG AA Urine blood detection (test code = 73827-5) 1+ NEG AA Urine pH (test code = 2756-5) 5.5 5.0-7.0 Urinalysis with microscopy (test code = 42117-0) 2+ NEG AA Urine Nitrate (test code = UNIT) NEGATIVE NEG Urine Leukocyte Esterase (test code = UESTR) TRACE NEG AA Tested by: jtb BLOOD: 1+ GLUCOSE: NEG KETONES: 2+ LEUKOCYTES: TRACE NITRITE: NEG PH: 5.5 PROTEIN: 2+ jtb NEG jtb 1+ NEG 2+ TRACE NEG 5.5 2+ Y 1.025
--- OUTSIDE RECORDS SUMMARY | 2020-01-05 13:34 | XMS REPORT | Continuity of Care Document ---
Author Author [facility] t Organization [facility] Address [address] [place] [address] Phone Unavailable Care Team Providers Care Director Appointment Name Role Phone NO, PCP PCP Unavailable RONALD VICENTE Attphys Unavailable Dennis Tejada DO Attphys Dre JAMA Attphys Unavailable Niall Zamora MD, Donnie Wright Attphys Porter Adler MD Attphys [phone] TAMIKO STARK Attphys Unavailable Florin Conley Attphys Unavailable RONALD VICENTE Admphys Unavailable LEE ADLER Admphys Unavailabl e Payers Payer Name Policy Type Policy Number Effective Date Expiration Date Rc [facility] [id number] 2018 00:00:00 [facility] Cdc Review Covid19 [id number] [facility] Problems Condition Name Condition Details Condition Category Status Onset Date Resolution Date Last Treatment Date Treating Clinician Comments Source Severe sepsis Severe sepsis Disease Active 2018-08-02 00:00:00 [facility] Chills (without fever) Chills (without fever) Disease Active 2018-08-02 00:00:00 [facility] Fever Fever Disease Active 2018-08-02 00:00:00 [facility] Coagulopathy Coagulopathy Disease Active 2018-08-02 00:00:00 [facility] Anemia Anemia Disease Active 2018-08-02 00:00:00 [facility] Thrombocytopenia Thrombocytopenia Disease Active 2018-08-02 00:00:00 [facility] Shock circulatory Shock circulatory Disease Active 2018-08-01 00:00:00 [facility] Pneumatosis intestinalis Pneumatosis intestinalis Disease Acti ve 2018-08-01 00:00:00 [facility] S/P gastric bypass at OSH, presented with leak, sepsis S/P gastric bypass at OSH, presented with leak, sepsis Disease Active 2018-08-01 00:00:00 [facility] Musculoskeletal chest pain Problem Active [facility] Leukopenia Problem Active [facility] Acute viral syndrome Problem Active [facility] Suspected severe acute respiratory syndr ome coronavirus 2 (SARS-CoV-2) infection Problem Active [facility] Acute gallstone pancreatitis Problem Active [facility] Urinary tract infection Problem Active [facility] Allergies, Adverse Reactions, Alerts This patient has no known allergies or adverse reactions. Social History Social Habit Start Date Stop Date Quantity Comments Source History of tobacco use Cigarette Smoker [facility] Sex Assigned At [facility] History SDOH Alcohol Frequency 2018-08-01 00:00:00 2018-08-01 00:00:0 0 2 [facility] History SDOH Alcohol Std Drinks 2018-08-01 00:00:00 2018-08-01 00:00: 00 1 [facility] History SDOH Alcohol Binge 2018-08-01 00:00:00 2018-08-01 00:00:00 1 [facility] Tobacco Comment 2018-08-01 00:00:00 2018-08-01 00:00:00 [place] [facility] "maybe 4 cigarettes a year" [facility] Smoking Status Start Date Stop Date Source Light tobacco smoker 2018-08-16 00:00:00 [facility] Medications Ordered Medication Name Filled Medication Name Start Date Stop Da te Current Medication? Ordering Clinician Indication Dosage Frequency Signature (SIG) Comments Components Source Naproxen Naproxen 2019-12-14 12:32:00 2019-12-27 00:00:00 No 500 Twice A Day as needed for Pain [facility] jbgbbkxj-vsya-she-folic acid (MULTIVITAM WH-KTDH-BMXLCESW-FOLIC ACID) 3,500-18-0.4 unit-mg-mg Chew 2018-08-01 11:46:56 Yes 1{tbl} QD Take 1 tablet by mouth daily. [facility] calcium carbonate-vitamin D2 500 mg(1,250mg) -200 unit table t 2018-08-01 11:46:56 Yes . [facility] Acetaminophen With Codeine (Tylenol With Codeine #3 Ta blet) 1 Each TABLET Acetaminophen With Codeine (Tylenol With Codeine #3 Tablet) 1 Each TABLET Yes 300 Every 4 Hours as needed for Pain [facility] Vital Signs Vital Name Observation Time Observation Value Comments Source Body Temperature 2019-12-27 09:08:00 98.1 [degF] [facility] BMI (Body Mass Index) 2019-12-24 06:20:00 24.0 kg/m2 [facility] Weight 2019-12-24 01:07:00 144 [lb_av] [facility] Weight 2019-12-14 10:17:00 144 [lb_av] [facility] BMI (Body Mass Index) 2019-12-14 10:17:00 24.0 kg/m2 [facility] Procedures Procedure Date / Time Performed Performing Clinician Rona hernandez US Gallbladder 2019-12-24 00:00:00 [facility] Magnetic resonance cholangiopancreatography (MRCP) wit hout contrast 2019-12-24 00:00:00 [facility] Plan of Care Planned Activity Planned Date Details Comments Source Instructions Cholelithiasis [facility] Instructions Pancreatitis [facility] Instructions Urinary Tract Infection - Women [facility] Encounters Start Date/Time End Date/Time Encounter Type Admission Type [facility] Facility Care Department Encounter ID Source 2019-12-27 08:05:00 2019-12-27 11:18:00 Discharged Inpatient 1 RONALD VICENTE [facility] [id number] [facility] 2019-12-20 13:12:56 2019-12-20 13:32:56 Office Visit Kye Sandoval [facility] [id number] 2019-12-14 11:20:00 2019-12-14 12:58:00 Departed Emergency Room FARHAN JAMA [facility] [id number] [facility] 2019-08-01 13:42:56 2019-08-01 14:27:07 Office Visit R Kyle Rodriguez [facility] [id number] 2019-07-04 14:57:45 2019-07-04 16:09:36 Office Visit Imelda Fortune [facility] [id number] 2019-02-07 12:37:32 2019-02-07 13:35:57 Office Visit Imelda Fortune [facility] [id number] Results Test Description Test Time Test Comments Results Result Comments Source Serum or plasma amylase measurement (enzymatic activit y/volume) 2019-12-26 05:05:00 Test Item Amylase Level (test code = 1798-8) 82 25-125 [facility] (enzymatic activity/volume)2019-12-26 05:05:00* Test Item Value Reference Range Interpretation Comments Lipase (test code = 3040-3) 20 8-78 [facility] count (number/volume)2019-12-25 05:00:00* Test Item Value Reference Range Interpretation Comments White Blood Count (test code = 6690-2) 3.84 4.8-10.8 [facility] erythrocytes automated count (number/volume)2019-12-25 05:00:00* Test Item Value Reference Range Interpretation Comments Red Blood Count (test code = 789-8) 3.32 3.6-5.1 [facility] hemoglobin measurement (moles/volume)2019-12-25 05:00:00* Test Item Value Reference Range Interpretation Comments Hemoglobin (test code = 75976-3) 8.5 12.0-16.0 [facility] blood hematocrit (volume fraction)2019-12-25 05:00:00* Test Item Value Reference Range Interpretation Comments Hematocrit (test code = 4544-3) 27.3 34.2-44.1 [facility] erythrocyte mean corpuscular cuizyi5910-68-77 05:00:00* Test Item Value Reference Range Interpretation Comments Mean Corpuscular Volume (test code = 787-2) 82.2 81-99 [facility] eryth[facility] mean corpuscular hemoglobin (mass per erythrocyte)2019-12-25 05:00:00* Test Item Value Reference Range Interpretation Comments Mean Corpuscular Hemoglobin (test code = 785-6) 25.6 28-32 [facility] erythrocyte mean corpuscular hemoglobin concentration measurement (mass/volume)2019-12-25 05:00:00* Test Item Value Reference Range Interpretation Comments Mean Corpuscular Hemoglobin Concent (test code = 786-4) 31.1 31-35 [facility]RDW TwuDh-Isx7443-43-20 05:00:00* Test Item Value Reference Range Interpretation Comments Red Cell Distribution Width (test code = 51247-4) 15.1 11.7 -14.4 [facility] blood platelet count (count/volume)2019-12-25 05:00:00* Test Item Value Reference Range Interpretation Comments Platelet Count (test code = 777-3) 124 140360 [facility] blood segmented neutrophil count as percentage of total nyzkwxkjdd7033-05-28 05:00:00* Test Item Value Reference Range Interpretation Comments Neutrophils (%) (Auto) (test code = 92669-4) 52.1 38.7-80.0 [facility] blood lymphocyte count as percentage ot total atesurkfij4487-34-18 05:00:00* Test Item Value Reference Range Interpretation Comments Lymphocytes (%) (Auto) (test code = 736-9) 39.6 18.0-39.1 [facility] blood monocyte count as percentage of total yynkbbvnxw9019-34-27 05:00:00* Test Item Value Reference Range Interpretation Comments Monocytes (%) (Auto) (test code = 5905-5) 6.5 4.4-11.3 [facility] blood eosinophil count as percentage of total qaseolkcou9511-58-28 05:00:00* Test Item Value Reference Range Interpretation Comments Eosinophils (%) (Auto) (test code = 713-8) 1.0 0.0-6.0 [facility] blood basophil count as percentage of total ghpjmxrvgb0159-52-69 05:00:00* Test Item Value Reference Range Interpretation Comments Basophils (%) (Auto) (test code = 706-2) 0.5 0.0-1.0 [facility]HealthFluoroscopic procedure less than one hour ysbfxdjx2900-35-08 05:00:00* Test Item Value Reference Range Interpretation Comments IM GRANULOCYTES % (test code = IM GRANULOCYTES %) 0.3 0.0- 1.0 [facility] neutrophil count 2019-12-25 05:00:00* Test Item Value Reference Range Interpretation Comments Neutrophils # (Auto) (test code = 751-8) 2.0 2.1-6.9 [facility] lymphocytes count (number/volume) 2019-12-25 05:00:00* Test Item Value Reference Range Interpretation Comments Lymphocytes # (Auto) (test code = 93355-8) 1.5 1.0-3.2 [facility] monocytes automated count (number/volume)2019-12-25 05:00:00* Test Item Value Reference Range Interpretation Comments Monocytes # (Auto) (test code = 742-7) 0.3 0.2-0.8 [facility] blood eosinophil count 2019-12-25 05:00:00* Test Item Value Reference Range Interpretation Comments Eosinophils # (Auto) (test code = 711-2) 0.0 0.0-0.4 [facility] blood basophil count (count/volume)2019-12-25 05:00:00* Test Item Value Reference Range Interpretation Comments Basophils # (Auto) (test code = 704-7) 0.0 0.0-0.1 [facility] procedure less than one hour omwuubtn5806-11-51 05:00:00* Test Item Value Reference Range Interpretation Comments Absolute Immature Granulocyte (auto (lexi t code = Absolute Immature Granulocyte (auto) 0.01 0-0.1 [facility] reticulocyte count as percentage of total gtmyblmcnyaz6563-27-55 05:00:00* Test Item Value Reference Range Interpretation Comments Percent Reticulocyte Count (test code = 55906-9) 1.1 0.8-2 .2 [facility] sodium measurement (moles/volume)2019-12-25 05:00:00* Test Item Value Reference Range Interpretation Comments Sodium Level (test code = 2951-2) 140 136-145 [facility] potassium measurement (moles/volume)2019-12-25 05:00:00* Test Item Value Reference Range Interpretation Comments Potassium Level (test code = 2823-3) 3.8 3.5-5.1 [facility] chloride measurement (moles/volume)2019-12-25 05:00:00* Test Item Value Reference Range Interpretation Comments Chloride Level (test code = 2075-0) 111 98-107 [facility] carbon dioxide, total measurement (moles/volume)2019-12-25 05:00:00* Test Item Value Reference Range Interpretation Comments Carbon Dioxide Level (test code = 2028-9) 24 22-29 [facility] anion nol8501-54-47 05:00:00* Test Item Value Reference Range Interpretation Comments Anion Gap (test code = 89729-2) 8.8 8-16 [facility] urea nitrogen measurement (mass/volume)2019-12-25 05:00:00* Test Item Value Reference Range Interpretation Comments Blood Urea Nitrogen (test code = 3094-0) 5 7-26 [facility] creatinine measurement (mass/volume)2019-12-25 05:00:00* Test Item Value Reference Range Interpretation Comments Creatinine (test code = 2160-0) 0.70 0.57-1.11 [facility] urea nitrogen/creatinine mass dfzgt2561-62-61 05:00:00* Test Item Value Reference Range Interpretation Comments BUN/Creatinine Ratio (test code = 3097-3) 7 6-25 [facility]HealthEstimated glomerular filtration rate (GFR) wwwkszdmkxwyb1038-21-86 05:00:00* Test Item Value Reference Range Interpretation Comments Estimat Glomerular Filtration Rate (test code = 748572918) > 60 >60 Ranges were taken from the National Kidney Disease Education Program and the [facility] [facility] [employer] literature.Reference ranges:60 or greater: Ybqnlo85-85 ( for 3 consecutive months): Chronic kidney disease 15 or less: Kidney failureAdventHealthGlucose qhicozqlywq8632-86-63 05:00:00* Test Item Value Reference Range Interpretation Comments Glucose Level (test code = KPC9945) 71 74-118 [facility] calcium measurement (mass/volume)2019-12-25 05:00:00* Test Item Value Reference Range Interpretation Comments Calcium Level (test code = 14121-2) 7.7 8.4-10.2 [facility] iron measurement (mass/volume)2019-12-25 05:00:00* Test Item Value Reference Range Interpretation Comments Iron Level (test code = 2498-4) 64 50-170 [facility] iron binding capacity measurement (mass/volume)2019-12-25 05:00:00* Test Item Value Reference Range Interpretation Comments Total Iron Binding Capacity (test code = 2500-7) 323 261-4 78 [facility] iron saturation measurement (mass fraction)2019-12-25 05:00:00* Test Item Value Reference Range Interpretation Comments Percent Iron Saturation (test code = 2502-3) 20 15-50 [facility] plasma transferrin measurement (mass/volume)2019-12-25 05:00:00* Test Item Value Reference Range Interpretation Comments Transferrin (test code = 3034-6) 231 180-382 [facility] ferritin measurement (mass/volume)2019-12-25 05:00:00* Test Item Value Reference Range Interpretation Comments Ferritin (test code = 2276-4) 8.56 4.63-204.00 [facility] total bilirubin measurement (mass/volume)2019-12-25 05:00:00* Test Item Value Reference Range Interpretation Comments Total Bilirubin (test code = 1975-2) 0.4 0.2-1.2 [facility]Fluoroscopic procedure less than one hour hxsdsuuj3103-59-60 05:00:00* Test Item Value Reference Range Interpretation Comments Aspartate Amino Transf (AST/SGOT) (test code = Aspartate Amino Transf (AST/SGOT)) 269 5-34 [facility] alanine aminotransferase measurement (enzymatic activity/volume)2019-12-25 05:00:00* Test Item Value Reference Range Interpretation Comments Alanine Aminotransferase (ALT/SGPT) (test code = 1742-6) 255 0-55 [facility] protein measurement (mass/volume)2019-12-25 05:00:00* Test Item Value Reference Range Interpretation Comments Total Protein (test code = 2885-2) 5.4 6.5-8.1 [facility] albumin measurement (mass/volume)2019-12-25 05:00:00* Test Item Value Reference Range Interpretation Comments Albumin (test code = 1751-7) 2.8 3.5-5.0 [facility]Plasma globulin measurement (mass/volume) 2019-12-25 05:00:00* Test Item Value Reference Range Interpretation Comments Globulin (test code = 10090-6) 2.6 2.3-3.5 [facility] albumin/globulin mass ycooz1270-23-63 05:00:00* Test Item Value Reference Range Interpretation Comments Albumin/Globulin Ratio (test code = 1759-0) 1.1 0.8-2.0 [facility] alkaline phosphatase measurement (enzymatic activity/volume)2019-12-25 05:00:00* Test Item Value Reference Range Interpretation Comments Alkaline Phosphatase (test code = 6768-6) 127 40-150 [facility] cobalamin (vitamin B12) measurement (mass/volume)2019-12-25 05:00:00* Test Item Value Reference Range Interpretation Comments Vitamin B12 Level (test code = 43919-6) 289 213816 [facility] folate measurement (mass/volume)2019-12-25 05:00:00* Test Item Value Reference Range Interpretation Comments Folate (test code = 2284-8) 10.9 >3.0 A serum folate concentration of less than 3.1 ng/mL isconsidered to represent cl inical deficiency.Performed at: - [facility] [id number] Director: Salomón Singh MD, Phone: [phone] OX5129-84-34 12:30:00 [place] [address] Patient Name: DEBBIE SANZ MR #: [id number] : 1985 Age/Sex: 34/F Req #: [id number] Adm Physician: RONALD VICENTE MD Ordered by: GÓMEZ SANTIAGO MD Report #: [id number] Location: MED/SURG Room/Bed: 103-1 Procedure: [id number] MRI/MRI MRCP WO Exam Date: Exam Time: [...] MD Fluoroscopic procedure less than one hour fajjkhja0622-61-71 05:10:00* Test Item Value Reference Range Interpretation [...] Testing methodology is real-time RT-PCR utilizing the [facility] SARS-CoV-2 ki t distributed by [employer].Test results must be correlated with clinical presentation [...] complexity test s.Testing performed by [facility] [address] [place], [place] [phone] Director: Baltazar Mendoza M.D.CLIA # [id number] 3Results called to JEANNE GUEVARA at 0933 on 12/27/19 by Yunior Faust. RB [place].[facility] XRGMJLGFSTW8783-11-06 04:08:00 [facility] [address] [place] [address] Patient Name: DEBBIE SANZ MR #: [id number] : 1985 Age/Sex: 34/F Req #: [id number] Adm Physician: Ordered by: GÓMEZ SANTIAGO MD Report #: [id number] Location: ER Room/Bed: Procedure: [id number] US/US G ALLBLADDER Exam Date: 12/24/19 Exam Time: 349 REPORT STATUS: Signed EXAM: Right Upp er Quadrant Ultrasound INDICATION: RUQ PAIN [id number] C OMPARISON: None. TECHNIQUE: Transverse and [...] COPY TO: GÓMEZ SANTIAGO MD Urine color lytwmhddzipqv3587-88-62 01:15:00* Test Item Value Reference Range Interpretation Comments Urine Color (test code = 5778-6) KALEE YELLOW [facility] dshjfal2754-88-17 01:15:00* Test Item Value Reference Range Interpretation Comments Urine Clarity (test code = 71751-3) CLOUDY CLEAR [facility] gravity of Urine by Test strip 2019-12-24 01:15:00* Test Item Value Reference Range Interpretation Comments Urine Specific [place] (test code = 5811-5) >=1.030 1.010-1.02 5 [facility]Urine pH measurement by automated test kpytp7394-08-49 01:15:00* Test Item Value Reference Range Interpretation Comments Urine pH (test code = 64181-4) 6 5-7 [facility] leukocyte esterase detection by jgircgak9275-86-43 01:15:00* Test Item Value Reference Range Interpretation Comments Urine Leukocyte Esterase (test code = 5799-2) TRACE NEGATIVE [facility]Urine nitrite bcemtwllg1983-55-36 01:15:00* Test Item Value Reference Range Interpretation Comments Urine Nitrite (test code = 07721-6) NEGATIVE NEGATIVE [facility] protein measurement by test strip (mass/volume)2019-12-24 01:15:00* Test Item Value Reference Range Interpretation Comments Urine Protein (test code = 5804-0) NEGATIVE NEGATIVE [facility] glucose vfkbzcfcc6806-38-48 01:15:00* Test Item Value Reference Range Interpretation Comments Urine Glucose (UA) (test code = 2349-9) NEGATIVE NEGATIVE [facility]Urine ketones detection by automated test tixzs1519-71-69 01:15:00* Test Item Value Reference Range Interpretation Comments Urine Ketones (test code = 87190-0) TRACE NEGATIVE [facility]rine urobilinogen measurement by test strip (mass/volume)2019-12-24 01:15:00* Test Item Value Reference Range Interpretation Comments Urine Urobilinogen (test code = 36521-4) 1 0.2-1 [facility] total bilirubin measurement (mass/volume)2019-12-24 01:15:00* Test Item Value Reference Range Interpretation Comments Urine Bilirubin (test code = 1978-6) SMALL NEGATIVE [facility] erythrocytes dflabvmsa6385-35-43 01:15:00* Test Item Value Reference Range Interpretation Comments Urine Blood (test code = 25179-5) TRACE NEGATIVE [facility]Automated urine sediment leukocyte count by microscopy (number/high power field)2019-12-24 01:15:00* Test Item Value Reference Range Interpretation Comments Urine WBC (test code = 5821-4) >50 0-5 [facility]HealthErythrocytes detection in urine sediment by light keawjlspxr1321-99-93 01:15:00* Test Item Value Reference Range Interpretation Comments Urine RBC (test code = 36628-8) 11-20 0-5 [facility]HealthBacteria detection in urine sediment by light uwyqfcqmry4626-39-38 01:15:00* Test Item Value Reference Range Interpretation Comments Urine Bacteria (test code = 94567-5) MANY NONE [facility]HealthEpithelial cells detection in urine sediment by light oozyrvzyhf6875-55-76 01:15:00* Test Item Value Reference Range Interpretation Comments Urine Epithelial Cells (test code = 55667-6) MANY NONE [facility]HealthUrine human chorionic gonadotropin (hCG) nuitlehcy5887-40-93 01:15:00* Test Item Value Reference Range Interpretation Comments Urine Test (test code = 2106-3) NEGATIVE NEGATIVE [facility] leukocytes automated count (number/volume)2019-12-14 11:40:00* Test Item Value Reference Range Interpretation Comments White Blood Count (test code = 6690-2) 1.57 4.8-10.8 Results repeated and called to ADELSO VALDEZ at 1239 on 12/14/19 by Kermit powell. Read back and verified.[facility] erythrocytes automated count (number/volume)2019-12-14 11:40:00* Test Item Value Reference Range Interpretation Comments Red Blood Count (test code = 789-8) 4.07 3.6-5.1 [facility] hemoglobin measurement (moles/volume)2019-12-14 11:40:00* Test Item Value Reference Range Interpretation Comments Hemoglobin (test code = 03197-1) 10.0 12.0-16.0 [facility]Automated blood hematocrit (volume fraction)2019-12-14 11:40:00* Test Item Value Reference Range Interpretation Comments Hematocrit (test code = 4544-3) 32.4 34.2-44.1 [facility]Automated erythrocyte mean corpuscular ciovsf5945-55-89 11:40:00* Test Item Value Reference Range Interpretation Comments Mean Corpuscular Volume (test code = 787-2) 79.6 81-99 [facility] erythrocyte mean corpuscular hemoglobin (mass per erythrocyte)2019-12-14 11:40:00* Test Item Value Reference Range Interpretation Comments Mean Corpuscular Hemoglobin (test code = 785-6) 24.6 28-32 [facility]Autom[facility] erythrocyte mean corpuscular hemoglobin concentration measurement (mass/volume)2019-12-14 11:40:00* Test Item Value Reference Range Interpretation Comments Mean Corpuscular Hemoglobin Concent (test code = 786-4) 30.9 31-35 [facility]HealthRDW VnbIg-Wli4742-32-09 11:40:00* Test Item Value Reference Range Interpretation Comments Red Cell Distribution Width (test code = 82453-4) 15.4 11.7 -14.4 [facility] blood platelet count (count/volume)2019-12-14 11:40:00* Test Item Value Reference Range Interpretation Comments Platelet Count (test code = 777-3) 166 140-360 [facility]Autom[facility] blood segmented neutrophil count as percentage of total hiyvfansec0632-03-79 11:40:00* Test Item Value Reference Range Interpretation Comments Neutrophils (%) (Auto) (test code = 04582-1) 40.7 38.7-80.0 [facility]Autom[facility] blood lymphocyte count as percentage ot total uchzekokqv0346-60-03 11:40:00* Test Item Value Reference Range Interpretation Comments Lymphocytes (%) (Auto) (test code = 736-9) 52.9 18.0-39.1 [facility] blood monocyte count as percentage of total vqwreugifq9924-44-13 11:40:00* Test Item Value Reference Range Interpretation Comments Monocytes (%) (Auto) (test code = 5905-5) 6.4 4.4-11.3 [facility] blood eosinophil count as percentage of total wqudltywpo5632-20-76 11:40:00* Test Item Value Reference Range Interpretation Comments Eosinophils (%) (Auto) (test code = 713-8) 0.0 0.0-6.0 [facility] basophil count as percentage of total [id number] 11:40:00* Test Item Value Reference Range Interpretation Comments Basophils (%) (Auto) (test code = 706-2) 0.0 0.0-1.0 [facility] procedure less than one hour [id number] 11:40:00* Test Item Value Reference Range Interpretation Comments IM GRANULOCYTES % (test code = IM GRANULOCYTES %) 0.0 0.0- 1.0 [facility] neutrophil count 2019-12-14 11:40:00* Test Item Value Reference Range Interpretation Comments Neutrophils # (Auto) (test code = 751-8) 0.6 2.1-6.9 [facility] lymphocytes count (number/volume) 2019-12-14 11:40:00* Test Item Value Reference Range Interpretation Comments Lymphocytes # (Auto) (test code = 48670-5) 0.8 1.0-3.2 [facility] monocytes automated count (number/volume)2019-12-14 11:40:00* Test Item Value Reference Range Interpretation Comments Monocytes # (Auto) (test code = 742-7) 0.1 0.2-0.8 [facility] eosinophil count 2019-12-14 11:40:00* Test Item Value Reference Range Interpretation Comments Eosinophils # (Auto) (test code = 711-2) 0.0 0.0-0.4 [facility] basophil count (count/volume)2019-12-14 11:40:00* Test Item Value Reference Range Interpretation Comments Basophils # (Auto) (test code = 704-7) 0.0 0.0-0.1 [facility] less than one hour [id number] 11:40:00* Test Item Value Reference Range Interpretation Comments Absolute Immature Granulocyte (auto (lexi t code = Absolute Immature Granulocyte (auto) 0 0-0.1 [facility] less than one hour [id number] 11:40:00* Test Item Value Reference Range Interpretation Comments Differential Total Cells Counted (test code = Differen tial Total Cells Counted) 100 [facility] blood neutrophils/100 leukocytes 2019-12-14 11:40:00* Test Item Value Reference Range Interpretation Comments Neutrophils % (Manual) (test code = 63021-3) 42 40-74 [facility] blood lymphocytes/100 leukocytes 2019-12-14 11:40:00* Test Item Value Reference Range Interpretation Comments Lymphocytes % (Manual) (test code = 737-7) 50 19-48 [facility] blood monocytes/100 leukocytes 2019-12-14 11:40:00* Test Item Value Reference Range Interpretation Comments Monocytes % (Manual) (test code = 744-3) 8 3.4-9.0 [facility] 2 [facility]IEW - [id number] 11:18:00 [facility] [address] [address] Patient Name: DEBBIE SANZ MR #: [id number] : 1985 Age/Sex: 34/F Req #: [id number] Adm Physician: Ordered by: FARHAN JAMA MD Report #: [id number] Location: [facility] Room/Bed: Procedure: [id number] [facility] Ex[facility] Date: 12/14/19 Exam Time: 1100 [...] IRVING MD 1120 COPY TO: ANA LUISA JAMA MD CT, [id number] 13:51:00FINAL REPORT EXAM: CT Abdomen and Pelvis [...] lesions. No stones. GI TRACT: Status post Melissa-en-Y gastric bypass. Dec reased size of the [...] SWANSON MD on 2018 01:51 PM BLOOD [id number] 14:34:00* Test Item Value Reference Range Interpretation [...] and anaerobic bottles: gram positive rods BLOOD [id number] 14:01:00* Test Item Value Reference Range Interpretation [...] GRAM STAIN RESULT (BEAKER) (test code = 037219) From a naerobic bottle only: gram positive rods Susceptibity performed by [facility] [place] [id number]: bLOOD [id number] 11:02:00* Test Item Value Reference Range Interpretation Comments CULTURE (BEAKER) (test code = 1095) No growth in 5 days BLOOD [id number] 11:02:00* Test Item Value Reference Range Interpretation Comments CULTURE (BEAKER) (test code = 1095) No growth in 5 days BLOOD [id number] 10:18:00* Test Item Value Reference Range Interpretation Comments CULTURE (BEAKER) (test code = 1095) A From Anaerobic Bottle Only Parvimonas micra GRAM STAIN RESULT (BEAKER) (test code = 1123) From matthew erobic bottle only: gram positive coccobacilli BLOOD [id number] 01:01:00* Test Item Value Reference Range Interpretation Comments CULTURE (BEAKER) (test code = 1095) No growth in 5 days BLOOD CULTURE IDENTIFICATION [id number] 03:26:00* Test Item Value Reference Range Interpretation Comments LISTERIA MONOCYTOGENES (test code = 3342699) Not detected Not detec joseph STAPHYLOCOCCUS (test code = 7513670) Not detected Not detected STAPHYLOCOCCUS AUREUS (test code = 8787869) Not detected Not detect ed STREPTOCOCCUS (test code = 1494343) Not detected Not detected STREPTOCOCCUS AGALACTIAE (GROUP B) (test code = 2819944) Not detected Not detected STREPTOCOCCUS PNEUMONIAE (test code = 7922980) Not detected Not det ected STREPTOCOCCUS PYOGENES (GROUP A) (test code = 2458239) Not d etected Not detected ACINETOBACTER BAUMANNII (test code = 4627167) Not detected Not dete cted HAEMOPHILUS INFLUENZAE (test code = 3350067) Not detected Not detec joseph NEISSERIA MENINGITIDIS (test code = 9514765) Not detected Not detec joseph ENTEROBACTERIACEAE (test code = 7424559) Not detected Not detected ENTEROBACTER CLOACOE COMPLEX (test code = 6546952) Not detected Not detected KLEBSIELLA OXYTOCA (test code = 3274127) Not detected Not detected KLEBSIELLA PNEUMONIAE (test code = 1650) Not detected Not detected PROTEUS (test code = 3341298) Not detected Not detected SERRATIA MARCESCENS (test code = 6411468) Not detected Not detected SRIDHAR ALBICANS (test code = 9692375) Not detected Not detected SRIDHAR GLABRATA (test code = 5237910) Not detected Not detected SRIDHAR KRUSEI (test code = 7641202) Not detected Not detected SRIDHAR PARAPSILOSIS (test code = 5198252) Not detected Not detecte d SRIDHAR TROPICALIS (test code = 6563997) Not detected Not detected ESCHERICHIA COLI (test code = 3759647) Not detected Not detected METHICILLIN-RESISTANCE GENE (test code = 5609016) Not detected VANCOMYCIN-RESISTANCE GENE (test code = 6970961) Not d etected CARBAPENEM-RESISTANCE GENE (test code = 6600770) Not d etected ENTEROCOCCUS-BEAKER (test code = 1659441) Not detected Not detected PSEUDOMONAS AERUGINOSA-BEAKER (test code = 7299349) Not detected No t detected Other bacteria and resistance markers not targeted by this PCR panel cannot be e xcluded; therefore clinical correlation and follow up of serology, culture resul ts, and other molecular studies is required. The results are not intended to be used as the sole means for clinical diagnosis or patient management decisions. T his sample was tested at the [facility] Molecular Diagnostics Laboratory using the [employer] Blood Culture ID Panel. It is FDA cleared and has been verified and approved by the [facility] Molecular Diagnostics Laboratory for clinical use. Thi s laboratory is CLIA-certified and [employer] ([employer])-accred ited to perform high complexity [...] (test code = 961) 2+ moderate POCT-GLUCOSE [id number] 12:34:00* Test Item Value Reference Range Interpretation Comments POC-GLUCOSE METER (BEAKER) (test code = 1538) 105 mg/dL 70-110 TESTED AT [facility] [address] [facility] [address] RAD, CHEST, 1 VIEW, NON [id number] 09:35:00Reason for exam:->sepsisShould this be performed at [...] MDReport Verified Date/Time: 08/07/2018 09:35:18 Reading Location: [facility] C013Y CT Body Reading Room Gram Positive [id number] 07:44:00* Test Item Value Reference Range Interpretation Comments Levofloxacin susceptibility test by mini mum inhibitory concentration (test code = 86450-5) <0.25 S Levofloxacin susceptibility test by mini mum inhibitory concentration (test code = 25716-9) <0.25 S Aerobic bacterial blood [id number] 07:44:00* Test Item Value Reference Range Interpretation Comments Aerobic bacterial blood culture (test code = 05555-4) Aerobic Blood Culture Bottle result: POSITIVE Aerobic bacterial blood culture (test code = 60019-59) Called to CYNDI LE on 08/02/18 at 0622 by [email or web address] Aerobic bacterial blood culture (test code = 61573-23) Was there 100% Readback? N Aerobic bacterial blood culture (test code = 26899-22) Aerobic bacterial blood culture (test code = 86639-34) BETA HEMOLYTIC STREP GROUP A TYPED BY LATEX AGGLUTINATION. Aerobic bacterial blood culture (test code = 55962-78) STREPTOCO CCUS PYOGENES Aerobic bacterial blood culture (test code = 72323-8) Streptococ cus pyogenes Comment Bed:16Blood anaerobic voltghx3200-00-51 07:44:00* Test Item Value Reference Range Interpretation Comments Blood anaerobic culture (test code = 09600-0) Anaerobi c Blood Culture Bottle result: POSITIVE Blood anaerobic culture (test code = 31108-85) Called to CYNDI LE on 08/02/18 at 0622 by [email or web address] Blood anaerobic culture (test code = 10753-89) Was there 100% Readb ack? N Blood anaerobic culture (test code = 13033-50) Blood anaerobic culture (test code = 07563-05) BETA HE MOLYTIC STREP GROUP A TYPED BY LATEX AGGLUTINATION. Blood anaerobic culture (test code = 01712-87) STREPTOCOCCUS PYOGEN ES Blood anaerobic culture (test code = 42335-6) Streptococcus pyogene s Comment Bed:16Bacterial blood culture with Gram [id number] 07:44:00* Test Item Value Reference Range Interpretation Comments G POS COCCI IN PRS or CHS (test code = GRAM POS1) . Comment Bed:16Bacterial blood culture with Gram [id number] 07:44:00* Test Item Value Reference Range Interpretation Comments G POS COCCI IN PRS or CHS (test code = GRAM POS1) . Comment Bed:16POCT-GLUCOSE [id number] 06:45:00* Test Item Value Reference Range Interpretation Comments POC-GLUCOSE METER (BEAKER) (test code = 1538) 118 mg/dL 70-110 H TESTED AT [facility] [address] [place] [address] [id number] 06:40:00* Test Item Value Reference Range Interpretation Comments PHOSPHORUS (BEAKER) (test code = 604) 3.0 mg/dL 2.3-4.7 [id number] 06:40:00* Test Item Value Reference Range Interpretation Comments MAGNESIUM (BEAKER) (test code = 627) 2.0 mg/dL 1.6-2.6 BASIC METABOLIC [id number] 06:40:00* Test Item Value Reference Range Interpretation [...] IS NOT APPLICABLE FOR DIALYSIS PATIENTS. POCT-GLUCOSE [id number] 02:02:00* Test Item Value Reference Range Interpretation Comments POC-GLUCOSE METER (BEAKER) (test code = 1538) 112 mg/dL 70-110 H TESTED AT [facility] [address] [facility] [address] POCT-GLUCOSE [id number] 17:29:00* Test Item Value Reference Range Interpretation Comments POC-GLUCOSE METER (BEAKER) (test code = 1538) 107 mg/dL 70-110 TESTED AT [facility] [address] [facility] [address] C. DIFFICILE GDH [id number] 14:34:00* Test Item Value Reference Range Interpretation Comments CDT TOXIN (test code = 6649012779) Negative Negative CDT GDH ANTIGEN (test code = 0082101014) Negative Negative No indication of Clostridium difficile infection and no colonization. Discontinue enteric isolation and therapy. Testing performed by [employer] Rapid Cassette Assay. For GDH, published sensitivity of the assay is 98.7% compared to cytotoxicity testing. For Toxin AB, publishe d sensitivity is 87.8% and specificity 99.4% compared to cytotoxicity testing.Ve rification of kit performance was done by the [facility] Microbiology Lab prior to cl inical use.POCT-GLUCOSE [id number] 12:46:00* Test Item Value Reference Range Interpretation Comments POC-GLUCOSE METER (BEAKER) (test code = 1538) 108 mg/dL 70-110 TESTED AT [facility] [address] [place] [address] RAD, CHEST, 1 VIEW, NON [id number] 11:10:00Reason for exam:->sepsisShould this be performed at [...] MDReport Verified Date/Time: 08/06/2018 11:10:35 Reading Location: [facility] B[facility] C013Y CT Body Reading Room OMYCIN LEVEL, [id number] 08:56:00* Test Item Value Reference Range Interpretation Comments VANCOMYCIN TROUGH (BEAKER) (test code = 522) 10.9 ug/mL 10.0-20.0 If vancomycin trough level > 20 mcg/mL, hold next vancomycin dose, and contact MD and pharmacist.CBC W/PLT COUNT & AUTO [id number] 08:36:00* Test Item Value Reference Range Interpretation [...] Received comment: User comments: Slide comments: POCT-GLUCOSE [id number] 05:51:00* Test Item Value Reference Range Interpretation Comments POC-GLUCOSE METER (BEAKER) (test code = 1538) 118 mg/dL 70-110 H TESTED AT [facility] [address] [facility] [address] [id number] 05:47:00* Test Item Value Reference Range Interpretation Comments PHOSPHORUS (BEAKER) (test code = 604) 2.4 mg/dL 2.3-4.7 [id number] 05:47:00* Test Item Value Reference Range Interpretation Comments MAGNESIUM (BEAKER) (test code = 627) 1.9 mg/dL 1.6-2.6 BASIC METABOLIC [id number] 05:47:00* Test Item Value Reference Range Interpretation [...] GFR IS NOT APPLICABLE FOR DIALYSIS PATIENTS. [id number] 05:47:00* Test Item Value Reference Range Interpretation Comments ALBUMIN (BEAKER) (test code = 1145) 2.5 g/dL 3.5-5.0 L [id number] 05:26:00* Test Item Value Reference Range Interpretation Comments PREALBUMIN (BEAKER) (test code = 586) 8 mg/dL 14-45 L POCT-GLUCOSE [id number] 23:06:00* Test Item Value Reference Range Interpretation Comments POC-GLUCOSE METER (BEAKER) (test code = 1538) 109 mg/dL 70-110 TESTED AT [facility] [address] [facility] [address] POCT-GLUCOSE [id number] 16:48:00* Test Item Value Reference Range Interpretation Comments POC-GLUCOSE METER (BEAKER) (test code = 1538) 109 mg/dL 70-110 TESTED AT [facility] [address] [facility] [address] POCT-GLUCOSE [id number] 11:50:00* Test Item Value Reference Range Interpretation Comments POC-GLUCOSE METER (BEAKER) (test code = 1538) 109 mg/dL 70-110 TESTED AT [facility] [address] [facility] [address] RAD, CHEST, 1 VIEW, NON [id number] 09:12:00Reason for exam:->sepsisShould this be performed at [...] MDReport Verified Date/Time: 08/05/2018 09:12:22 Reading Location: [facility] Radiology Reading Room W/PLT COUNT & AUTO [id number] 07:35:00* Test Item Value Reference Range Interpretation [...] LYMPHOCYTES - ABS (CELLAVISION)(BEAKER) (test code = 5628) 0.08 K/uL 0.00-0.00 H TOTAL COUNTED (BEAKER) [...] Received comment: User comments: Slide comments: POCT-GLUCOSE [id number] 06:19:00* Test Item Value Reference Range Interpretation Comments POC-GLUCOSE METER (BEAKER) (test code = 1538) 113 mg/dL 70-110 H TESTED AT [facility] [address] [facility] [address] BASIC METABOLIC [id number] 04:33:00* Test Item Value Reference Range Interpretation [...] GFR IS NOT APPLICABLE FOR DIALYSIS PATIENTS. [id number] 04:15:00* Test Item Value Reference Range Interpretation Comments PHOSPHORUS (BEAKER) (test code = 604) 2.8 mg/dL 2.3-4.7 [id number] 04:15:00* Test Item Value Reference Range Interpretation Comments MAGNESIUM (BEAKER) (test code = 627) 2.2 mg/dL 1.6-2.6 [id number] 04:06:00* Test Item Value Reference Range Interpretation [...] for pat ients with mechanical heart valves.POCT-GLUCOSE [id number] 00:35:00* Test Item Value Reference Range Interpretation Comments POC-GLUCOSE METER (BEAKER) (test code = 1538) 125 mg/dL 70-110 H TESTED AT [address] [address] HEMOGLOBIN AND [id number] 22:41:00* Test Item Value Reference Range Interpretation Comments HEMOGLOBIN (BEAKER) (test code = 410) 7.7 GM/DL 11.2-15.7 L HEMATOCRIT (BEAKER) (test code = 411) 25.2 % 34.1-44.9 L POCT-GLUCOSE [id number] 17:59:00* Test Item Value Reference Range Interpretation Comments POC-GLUCOSE METER (BEAKER) (test code = 1538) 121 mg/dL 70-110 H TESTED AT [address] [address] CBC (HEMOGRAM ONLY)2018-08-04 14:01:00* Test Item Value [...] 1 /100 WBC 0 -0 H POCT-GLUCOSE [id number] 11:47:00* Test Item Value Reference Range Interpretation Comments POC-GLUCOSE METER (BEAKER) (test code = 1538) 131 mg/dL 70-110 H TESTED AT [facility] [address] [facility] [address] CBC W/PLT COUNT & AUTO [id number] 08:09:00* Test Item Value Reference Range Interpretation [...] Received comment: User comments: Slide comments: POCT-GLUCOSE [id number] 06:42:00* Test Item Value Reference Range Interpretation Comments POC-GLUCOSE METER (BEAKER) (test code = 1538) 111 mg/dL 70-110 H TESTED AT [facility] [address] [facility] [address] RAD, CHEST, 1 VIEW, NON [id number] 05:03:00Reason for exam:->sepsisShould this be performed at [...] MDReport Verified Date/Time: 08/04/2018 05:03:11 Reading Location: [address] Neuro Reading Room C METABOLIC [id number] 04:22:00* Test Item Value Reference Range Interpretation [...] GFR IS NOT APPLICABLE FOR DIALYSIS PATIENTS. PT/[id number] 04:20:00* Test Item Value Reference Range Interpretation [...] 2.5-3.5 for pat ients with mechanical heart valves.[id number] 04:19:00* Test Item Value Reference Range Interpretation Comments PHOSPHORUS (BEAKER) (test code = 604) 2.3 mg/dL 2.3-4.7 [id number] 04:19:00* Test Item Value Reference Range Interpretation Comments MAGNESIUM (BEAKER) (test code = 627) 2.3 mg/dL 1.6-2.6 PROTHROMBIN TIME/[id number] 04:15:00* Test Item Value Reference Range Interpretation Comments PROTIME (BEAKER) (test code = 759) 15.6 seconds 11.7-14.7 H INR (BEAKER) (test code = 370) 1.2 <=5.9 RECOMMENDED COUMADIN/WARFARIN INR THERAPY RANGESSTANDARD DOSE: 2.0 - 3.0 Inclu rachel: PROPHYLAXIS for venous thrombosis, systemic embolization; TREATMENT for salena ous thrombosis and/or pulmonary embolus.HIGH RISK: Target INR is 2.5-3.5 for pat ients with mechanical heart valves.POCT-GLUCOSE [id number] 02:05:00* Test Item Value Reference Range Interpretation Comments POC-GLUCOSE METER (BEAKER) (test code = 1538) 103 mg/dL 70-110 TESTED AT [facility] [address] [facility] [address] VANCOMYCIN LEVEL, [id number] 21:12:00* Test Item Value Reference Range Interpretation Comments VANCOMYCIN TROUGH (BEAKER) (test code = 522) 20.5 ug/mL 10.0-20.0 H If vancomycin trough level > 20 mcg/mL, hold next vancomycin dose, and contact MD and pharmacist.POCT-GLUCOSE [id number] 18:15:00* Test Item Value Reference Range Interpretation Comments POC-GLUCOSE METER (BEAKER) (test code = 1538) 86 mg/dL 70-110 TESTED AT [facility] [address] [place] [address] BLOOD CULTURE IDENTIFICATION [id number] 17:13:00* Test Item Value Reference Range Interpretation Comments LISTERIA MONOCYTOGENES (test code = 8418446) Not detected Not detec joseph STAPHYLOCOCCUS (test code = 5348095) Not detected Not detected STAPHYLOCOCCUS AUREUS (test code = 3113755) Not detected Not detect ed STREPTOCOCCUS (test code = 7108912) Not detected Not detected STREPTOCOCCUS AGALACTIAE (GROUP B) (test code = 9788858) Not detected Not detected STREPTOCOCCUS PNEUMONIAE (test code = 1926633) Not detected Not det ected STREPTOCOCCUS PYOGENES (GROUP A) (test code = 2270258) Not d etected Not detected ACINETOBACTER BAUMANNII (test code = 7130617) Not detected Not dete cted HAEMOPHILUS INFLUENZAE (test code = 8459460) Not detected Not detec joseph NEISSERIA MENINGITIDIS (test code = 5702473) Not detected Not detec joseph ENTEROBACTERIACEAE (test code = 0260814) Not detected Not detected ENTEROBACTER CLOACOE COMPLEX (test code = 5257861) Not detected Not detected KLEBSIELLA OXYTOCA (test code = 0643554) Not detected Not detected KLEBSIELLA PNEUMONIAE (test code = 1650) Not detected Not detected PROTEUS (test code = 1095366) Not detected Not detected SERRATIA MARCESCENS (test code = 1583999) Not detected Not detected SRIDHAR ALBICANS (test code = 6713721) Not detected Not detected SRIDHAR GLABRATA (test code = 6468061) Not detected Not detected SRIDHAR KRUSEI (test code = 0588633) Not detected Not detected SRIDHAR PARAPSILOSIS (test code = 5894846) Not detected Not detecte d SRIDHAR TROPICALIS (test code = 0312159) Not detected Not detected ESCHERICHIA COLI (test code = 2728632) Not detected Not detected METHICILLIN-RESISTANCE GENE (test code = 1200684) Not detected VANCOMYCIN-RESISTANCE GENE (test code = 2338782) Not d etected CARBAPENEM-RESISTANCE GENE (test code = 6567388) Not d etected ENTEROCOCCUS-BEAKER (test code = 7751084) Not detected Not detected PSEUDOMONAS AERUGINOSA-BEAKER (test code = 0621390) Not detected No t detected Other bacteria and resistance markers not targeted by this PCR panel cannot be e xcluded; therefore clinical correlation and follow up of serology, culture resul ts, and other molecular studies is required. The results are not intended to be used as the sole means for clinical diagnosis or patient management decisions. T his sample was tested at the [facility] Molecular Diagnostics Laboratory using the [employer] Blood Culture ID Panel. It is FDA cleared and has been verified and approved by the [facility] Molecular Diagnostics Laboratory for clinical use. Thi s laboratory is CLIA-certified and [employer] ([employer])-accred ited to perform high complexity [...] 413) 0 /100 WBC 0 -0 POCT-GLUCOSE [id number] 13:28:00* Test Item Value Reference Range Interpretation Comments POC-GLUCOSE METER (BEAKER) (test code = 1538) 106 mg/dL 70-110 TESTED AT [facility] [address] [facility] [address] Bacterial culture w [id number] 10:04:00* Test Item Value Reference Range Interpretation Comments Bacterial culture w ID (test code = 6463-4) NORMAL UPP ER RESPIRATORY CAYDEN GROWN. CBC W/PLT COUNT & AUTO [id number] 08:38:00* Test Item Value Reference Range Interpretation [...] Received comment: User comments: Slide comments: POCT-GLUCOSE [id number] 06:22:00* Test Item Value Reference Range Interpretation Comments POC-GLUCOSE METER (BEAKER) (test code = 1538) 110 mg/dL 70-110 TESTED AT [facility] [address] [place] [address] LACTIC ACID, ARTERIAL, WHOLE [id number] 06:15:00* Test Item Value Reference Range Interpretation Comments LACTATE BLOOD ARTERIAL (2) (BEAKER) (test code = 2874) 1.8 mmol/L 0.5-2.2 PT/[id number] 05:30:00* Test Item Value Reference Range Interpretation [...] 2.5-3.5 for pat ients with mechanical heart valves.[id number] 05:09:00* Test Item Value Reference Range Interpretation Comments PHOSPHORUS (BEAKER) (test code = 604) 2.6 mg/dL 2.3-4.7 [id number] 05:09:00* Test Item Value Reference Range Interpretation Comments MAGNESIUM (BEAKER) (test code = 627) 2.3 mg/dL 1.6-2.6 BASIC METABOLIC [id number] 05:09:00* Test Item Value Reference Range Interpretation [...] FOR DIALYSIS PATIENTS. LACTIC ACID, ARTERIAL, WHOLE [id number] 03:01:00* Test Item Value Reference Range Interpretation Comments LACTATE BLOOD ARTERIAL (2) (BEAKER) (test code = 2874) 1.4 mmol/L 0.5-2.2 POCT-GLUCOSE [id number] 00:06:00* Test Item Value Reference Range Interpretation Comments POC-GLUCOSE METER (BEAKER) (test code = 1538) 125 mg/dL 70-110 H TESTED AT [facility] [address] [facility] [address] BLOOD GAS, [id number] 19:00:00* Test Item Value Reference Range Interpretation [...] (test code = 1818) 36.6 C POCT-GLUCOSE [id number] 18:54:00* Test Item Value Reference Range Interpretation Comments POC-GLUCOSE METER (BEAKER) (test code = 1538) 130 mg/dL 70-110 H TESTED AT [facility] [address] [facility] [address] [id number] 17:37:00* Test Item Value Reference Range Interpretation Comments PHOSPHORUS (BEAKER) (test code = 604) 3.3 mg/dL 2.3-4.7 [id number] 17:37:00* Test Item Value Reference Range Interpretation Comments MAGNESIUM (BEAKER) (test code = 627) 2.2 mg/dL 1.6-2.6 BASIC METABOLIC [id number] 17:37:00* Test Item Value Reference Range Interpretation [...] FOR DIALYSIS PATIENTS. LACTIC ACID, ARTERIAL, WHOLE [id number] 17:35:00* Test Item Value Reference Range Interpretation Comments LACTATE BLOOD ARTERIAL (2) (BEAKER) (test code = 2874) 2.6 mmol/L 0.5-2.2 H PT/[id number] 17:24:00* Test Item Value Reference Range Interpretation [...] = 413) 0 /100 WBC 0 -0 [id number] 17:01:00* Test Item Value Reference Range Interpretation Comments MAGNESIUM (BEAKER) (test code = 627) 2.2 mg/dL 1.6-2.6 CT, [id number] 14:41:00PO contrast (recent gastric bypass only 100cc [...] [place] Verified Date/Time: 08/02/2018 14:41:14 Reading Location: [facility] C013Y CT Body Reading Room IC ACID, ARTERIAL, WHOLE [id number] 14:16:00* Test Item Value Reference Range Interpretation Comments LACTATE BLOOD ARTERIAL (2) ([facility]) (test code = 2874) 3.7 mmol/L 0.5-2.2 H POCT-GLUCOSE [id number] 13:56:00* Test Item Value Reference Range Interpretation Comments POC-GLUCOSE METER (BEAKER) (test code = 1538) 94 mg/dL 70-110 [address]ED AT [address] [address] POCT-GLUCOSE [id number] 11:54:00* Test Item Value Reference Range Interpretation Comments POC-GLUCOSE METER (AKER) (test code = 1538) 56 mg/dL 70-110 L Notified JANA HUGHES/TESTED AT [address] [address] CBC W/PLT COUNT & AUTO [id number] 10:13:00* Test Item Value Reference Range Interpretation Comments WHITE BLOOD CELL COUNT (BEAKER) (test code = 775) 33.6 K/ L 3.5- 10.5 H This is a corrected result. Previous result was 33.5 K/ L on 08/02/2018 at 0410 INFRASTRUCTURE MANAGER RED BLOOD CELL COUNT (BEAKER) (test code = 761) 3.41 M/ L 3.93-5 .22 L This is a corrected result. Previous result was 3.43 M/ L on 08/02/2018 at 0410 INFRASTRUCTURE MANAGER HEMOGLOBIN (BEAKER) (test code = 410) 7.7 GM/DL 11.2-15.7 L HEMATOCRIT (BEAKER) (test code = 411) 25.0 % 34.1-44.9 L This is a corrected result. Previous result was 25.1 % on 08/02/2018 at 0410 INFRASTRUCTURE MANAGER MEAN CORPUSCULAR VOLUME (BEAKER) (test code = 753) 73.3 fL 79. 4-94.8 L This is a corrected result. Previous result was 73.2 fL on 08/02/2018 at 0410 INFRASTRUCTURE MANAGER MEAN CORPUSCULAR HEMOGLOBIN (BEAKER) (test code = 751) 22.6 pg 25.6-32.2 L This is a corrected result. Previous result was 22.4 pg on 08/02/2018 at 0410 INFRASTRUCTURE MANAGER MEAN CORPUSCULAR HEMOGLOBIN CONC (BEAKER) (test code = 752) 30.8 GM/DL 32.2-35.5 L This is a corrected result. Previous result was 30.7 GM/DL on 08/02/2018 at 0410 INFRASTRUCTURE MANAGER RED CELL DISTRIBUTION WIDTH (BEAKER) (test code = 412) 18.9 % 11.7-14.4 H This is a corrected result. Previous result was 19.0 % on 08/02/2018 at 0410 INFRASTRUCTURE MANAGER PLATELET COUNT (BEAKER) (test code = 756) 141 K/CU MM 150-450 L This is a corrected result. Previous result was 136 K/CU MM on 08/02/2018 at 0410 INFRASTRUCTURE MANAGER MEAN PLATELET VOLUME (BEAKER) (test code = 754) 12.1 fL 9.4-12 .3 This is a corrected result. Previous result was 11.8 fL on 08/02/2018 at 0410 INFRASTRUCTURE MANAGER NUCLEATED RED BLOOD CELLS (BEAKER) (test code [...] comment: User comments: Slide comments: BLOOD GAS, [id number] 09:49:00* Test Item Value Reference Range Interpretation [...] (BEAKER) (test code = 1819) 21.0 % [place] [id number] 09:47:00Comment Bed:16>100,000 CFU/ML.^>100,000 CFU/ML.^L Urine [id number] 09:47:00* Test Item Value Reference Range Interpretation Comments Urine culture (test code = 630-4) MIXED [place]. Comment Bed:16CREATININE, RANDOM [id number] 09:42:00* Test Item Value Reference Range Interpretation Comments CREATININE URINE (BEAKER) (test code = 375) 79.5 mg/dL Reference Range: No NormalsSODIUM, RANDOM [id number] 09:42:00* Test Item Value Reference Range Interpretation Comments SODIUM URINE (BEAKER) (test code = 243) 57 meq/L Reference Range: No NormalsUREA NITROGEN, RANDOM [id number] 09:42:00* Test Item Value Reference Range Interpretation Comments UREA NITROGEN URINE (BEAKER) (test code = 538) 338 mg/dL Reference Range: No NormalsRAD, CHEST, 1 VIEW, NON [id number] 07:43:00Reason for exam:->sepsisShould this be performed at [...] Verified Date/Time : 08/02/2018 07:43:01 Reading Location: [facility] Radiology Reading Room IC ACID, ARTERIAL, WHOLE [id number] 07:07:00* Test Item Value Reference Range Interpretation Comments LACTATE BLOOD ARTERIAL (2) (JIM) (test code = 2874) 3.9 mmol/L 0.5-2.2 H Packed RBC Leukored [id number] 06:53:[id number] ON PCL PRSMD TRFSD 08/01/18 0652 ABO + Rh [id number] 06:53:00 * Test Item Value Reference Range Interpretation Comments ABO + Rh Bld (test code = 882-1) O POSITIVE EMERGENCY RELEASE PT TRANSFERRED TS DONE ON CBC TUBEIAT Comp-Sp Reag SerPl Ql 2018-08-02 06:53:00* Test Item Value Reference Range Interpretation Comments IAT Comp-Sp Reag SerPl Ql (test code = 1003-3) NEGATIVE POCT-GLUCOSE [id number] 06:09:00* Test Item Value Reference Range Interpretation Comments POC-GLUCOSE METER (JIM) (test code = 1538) 84 mg/dL 70-110 TESTED AT [address] [address] OSMOLALITY, [id number] 04:23:00* Test Item Value Reference Range Interpretation Comments OSMOLALITY URINE (BEAKER) (test code = 614) 369 mOsm/kg 40-1,400 BASIC METABOLIC [id number] 04:23:00* Test Item Value Reference Range Interpretation [...] INSUFFICIENT CLINICAL DATA TO CALCULATE ESTIMATED GFR. [id number] 04:22:00* Test Item Value Reference Range Interpretation Comments PHOSPHORUS (BEAKER) (test code = 604) 4.1 mg/dL 2.3-4.7 [id number] 04:22:00* Test Item Value Reference Range Interpretation Comments MAGNESIUM (BEAKER) (test code = 627) 2.5 mg/dL 1.6-2.6 HEPATIC FUNCTION [id number] 04:22:00* Test Item Value Reference Range Interpretation [...] code = 347) 81 U/L 6-55 H PT/[id number] 04:11:00* Test Item Value Reference Range Interpretation [...] (test code = 1414) 4.2 % 0.0-5.0 [id number] 00:02:00* Test Item Value Reference Range Interpretation Comments FIBRINOGEN LEVEL (BEAKER) (test code = 658) 495 mg/dl 225-434 H PT/[id number] 00:02:00* Test Item Value Reference Range Interpretation [...] with mechanical heart valves.LACTIC ACID, ARTERIAL, WHOLE [id number] 23:54:00* Test Item Value Reference Range Interpretation Comments LACTATE BLOOD ARTERIAL (2) (BEAKER) (test code = 2874) 2.1 mmol/L 0.5-2.2 CBC W/PLT COUNT & AUTO [id number] 23:48:00* Test Item Value Reference Range Interpretation [...] = 2801) 7 % 0-1 H POCT-GLUCOSE [id number] 23:35:00* Test Item Value Reference Range Interpretation Comments POC-GLUCOSE METER (BEAKER) (test code = 1538) 122 mg/dL 70-110 H TESTED AT [address] [address] HEMOGLOBIN AND [id number] 22:44:00* Test Item Value Reference Range Interpretation Comments HEMOGLOBIN (BEAKER) (test code = 410) 7.4 GM/DL 11.2-15.7 L HEMATOCRIT (BEAKER) (test code = 411) 24.6 % 34.1-44.9 L CALCIUM, [id number] 22:42:00* Test Item Value Reference Range Interpretation Comments CALCIUM IONIZED (BEAKER) (test code = 698) 1.04 mmol/L 1.12-1.27 L PH, BLOOD (BEAKER) (test code = 1810) 7.44 LACTIC ACID, ARTERIAL, WHOLE [id number] 19:43:00* Test Item Value Reference Range Interpretation Comments LACTATE BLOOD ARTERIAL (2) (BEAKER) (test code = 2874) 2.4 mmol/L 0.5-2.2 H PT/[id number] 19:39:00* Test Item Value Reference Range Interpretation [...] pat ients with mechanical heart valves.BASIC METABOLIC [id number] 16:52:00* Test Item Value Reference Range Interpretation [...] INSUFFICIENT CLINICAL DATA TO CALCULATE ESTIMATED GFR. [id number] 16:42:00* Test Item Value Reference Range Interpretation Comments PHOSPHORUS (BEAKER) (test code = 604) 3.8 mg/dL 2.3-4.7 [id number] 16:42:00* Test Item Value Reference Range Interpretation Comments MAGNESIUM (BEAKER) (test code = 627) 1.1 mg/dL 1.6-2.6 L LACTIC ACID, ARTERIAL, WHOLE [id number] 13:24:00* Test Item Value Reference Range Interpretation Comments LACTATE BLOOD ARTERIAL (2) (BEAKER) (test code = 2874) 2.2 mmol/L 0.5-2.2 HEMOGLOBIN [id number] 13:23:00* Test Item Value Reference Range Interpretation Comments HEMOGLOBIN A1C (JIM) (test code = 368) 5.4 % 4.3-6.1 Abdomen Pelvis W Zgysczdi4846-51-21 12:24:00[facility] [place] [address] RADIOLOGY SERVICES REPORT Name: DEBBIE SANZ Acct Number: [id number] :1985 Age:33 Sex:F Ord Phys: Florin Conley MD Unit Number: [id number] [facility] Dr: NONE Status: DEP ER Exam Date: [...] by: Lisa Alexandra DO 08/01/2018 6:08 AM INFRASTRUCTURE MANAGER 0 Due to temporary technical issues with the PACS/Fluency reporting sy stem, reports are being signed by the in house radiologist as a courtesy to [facility] re prompt reporting. The interpreting radiologist is fully responsible for the c ontent of the report. Signed By: Anival Garcia MD Signed AT: 9 1224 URINALYSIS W/ REFLEX URINE [id number] 12:10:00* Test Item Value Reference Range Interpretation [...] Rare SOURCE(BEAKER) (test code = 2795) SCREEN, [id number] 12:06:00* Test Item Value Reference Range Interpretation Comments TEST URINE (BEAKER) (test code = 583) Negative RAD, CHEST, 1 VIEW, NON [id number] 11:08:00Reason for exam:->Central Line PlacementShould this be [...] [place] Verified Date/Time: 08/01/2018 11:08:49 Reading Location: [facility] Radiology Reading Room W/PLT COUNT & AUTO [id number] 10:07:00* Test Item Value Reference Range Interpretation [...] Received comment: User comments: Slide comments: TROPONIN [id number] 10:04:00* Test Item Value Reference Range Interpretation [...] neurological disease, and per sistent tachyarrhythmia.BASIC METABOLIC [id number] 10:04:00* Test Item Value Reference Range Interpretation [...] INSUFFICIENT CLINICAL DATA TO CALCULATE ESTIMATED GFR. [id number] 09:57:00* Test Item Value Reference Range Interpretation Comments PHOSPHORUS (BEAKER) (test code = 604) 2.6 mg/dL 2.3-4.7 [id number] 09:57:00* Test Item Value Reference Range Interpretation Comments MAGNESIUM (BEAKER) (test code = 627) 1.2 mg/dL 1.6-2.6 L HEPATIC FUNCTION [id number] 09:57:00* Test Item Value Reference Range Interpretation [...] (test code = 347) 33 U/L 6-55 [id number] 09:57:00* Test Item Value Reference Range Interpretation Comments AMYLASE (BEAKER) (test code = 349) 313 U/L 25-125 H [id number] 09:57:00* Test Item Value Reference Range Interpretation Comments LIPASE (BEAKER) (test code = 749) 74 U/L 8-78 ABO + Rh [id number] 09:55:00* Test Item Value Reference Range Interpretation Comments ABO + Rh Bld (test code = 882-1) O POSITIVE LACTIC ACID, ARTERIAL, WHOLE [id number] 09:50:00* Test Item Value Reference Range Interpretation Comments LACTATE BLOOD ARTERIAL (2) (BEAKER) (test code = 2874) 4.6 mmol/L 0.5-2.2 H [id number] 09:38:00* Test Item Value Reference Range Interpretation Comments FIBRINOGEN LEVEL (BEAKER) (test code = 658) 485 mg/dl 225-434 H [id number] 09:38:00* Test Item Value Reference Range Interpretation Comments PARTIAL THROMBOPLASTIN TIME (BEAKER) (test code = 760) 40.9 seconds 22.5-36.0 H PROTHROMBIN TIME/[id number] 09:37:00* Test Item Value Reference Range Interpretation Comments PROTIME (BEAKER) (test code = 759) 22.5 seconds 11.7-14.7 H INR (BEAKER) (test code = 370) 2.0 <=5.9 RECOMMENDED COUMADIN/WARFARIN INR THERAPY RANGESSTANDARD DOSE: 2.0 - 3.0 Inclu rachel: PROPHYLAXIS for venous thrombosis, systemic embolization; TREATMENT for salena ous thrombosis and/or pulmonary embolus.HIGH RISK: Target INR is 2.5-3.5 for pat ients with mechanical heart valves.CALCIUM, [id number] 09:27:00* Test Item Value Reference Range Interpretation Comments CALCIUM IONIZED (BEAKER) (test code = 698) 0.97 mmol/L 1.12-1.27 L PH, BLOOD (BEAKER) (test code = 1810) 7.40 Chest Single [id number] 08:19:00[place] [address] RADIOLOGY SERVICES REPORT Name: DEBBIE SANZ Acct Number: [id number] :1985 Age:33 Sex:F Ord Phys: Florin Conley MD Unit Number: [id number] [facility] Dr: NONE Status: DEP ER ER [...] 08/01/18 0819 Lactate [Moles/volume] in Serum or Bhdlku7895-16-32 07:00:00* Test Item Value Reference Range Interpretation Comments Lactate [Moles/volume] in Serum or Plasma (test code = 2524- 7) 6.1 mmol/L 0.4-2.0 Repeated & Called to BOB BHARDWAJ RN on 08/01/18 at 0659 by [facility] Was there 100% Readback? YES Complete blood count (CBC) with automated white blood cell (WBC) differential 2018-08-01 04:54:00* Test Item Value Reference Range Interpretation Comments White blood cell count (test code = HHW8900) 6.4 4.3-10.9 Blood erythrocytes count (number/volume) (test code = 67685- 1) 4.34 M/ul 3.86-4.86 Hemoglobin measurement (test code = HNA8227) 9.3 g/dL 12.0-15.0 L Blood hematocrit (volume fraction) (test code = 66848-5) 29.4 % 36.0-45.0 L MCV (test code = ESE2018) 67.8 fL 80-100 L 21 .5 MCHC (test code = MCHC) 31.8 g/dL 32.0-36.0 L Platelets (test code = PLT) 214 152-406 Red Cell Distribution Width (test code = RDW) 17.7 % 12.1-15. 2 H Blood platelet mean volume (test code = 15013-4) 9.2 fL 7.6-1 1.3 Neutrophils % (test code = MAL%) 89.7 % 41.7-73.7 H Lymphocytes/leuk NFr Bld (test code = 74869-1) 9.2 % 15.3-44 .8 L Monocyte percentage (test code = 5905-5) 0.8 % 3.3-12.3 L Eosinophil % (test code = 713-8) 0.1 % 0-4.4 Basophil % (test code = 62523-5) 0.2 % 0-1.3 Absolute neutrophil count (test code = 751-8) 5.7 1.8-8.0 Absolute lymphocyte count (test code = 61442-9) 0.6 0.7-4. 9 L Absolute monocyte count (test code = 742-7) 0.0 0.1-1.3 L Absolute Eosinophils (test code = EOA) 0.0 0-0.5 Absolute Basophils (test code = BASA) 0.0 0-0.5 Blood smear scan ([facility])2018-08-01 04:54:00* Test Item Value Reference Range Interpretation Comments Giant platelet detection (test code = 5908-9) FEW Blood morphology interpretation narrative (test code = 35883-7) NOTED NOT SEEN Microcytosis evaluation panel (test code = BXY5299) 1+ Hypochromatic red blood cell detection (test code = 84489-2) 1+ Blood polychromasia detection by light microscopy (test code = 21936-4) SLIGHT Inzqxpuwfahvp7943-27-84 04:33:00* Test Item Value Reference Range Interpretation [...] septic shock. Lactate [Moles/volume] in Serum or Ncgrwk7553-36-96 04:33:00* Test Item Value Reference Range Interpretation Comments Lactate [Moles/volume] in Serum or Plasma (test code = 2524- 7) 7.2 mmol/L 0.4-2.0 HH REFLEX TESTING INITIATED* Sepsis Protocol Value +/> 2.0 mmol/L Critical Value >= 4.0 mmol/L Repeated & Called to MARIALUISA LEIVA RN on 08/01/18 at 0432 by [email or web address] Was there 100% Readback? Y Comment Bed:16Microscopic examination of jdquy4700-53-67 04:13:00* Test Item Value Reference Range Interpretation Comments Urine WBC (test code = UWBC) 5-10 <5 AA Urine sediment erythrocyte count by micr oscopy (number/high power field) (test code = 70274-9) <5 NONE SEEN Bacteria detection in urine sediment by light microsco py (test code = 42681-4) >50 <20 AA Sqamous Epithelial (test code = SQEP) 20-50 NONE SEEN AA Urinalysis with reflex to culture (test code = 77905-9) NOT NEEDED Culture was ordered previously. Influenza Type A Cdnowrw6243-14-18 04:11:00* Test Item Value Reference Range Interpretation Comments FLU A ----- (test code = FLUA) NEGATIVE (could be belo w detectable limits, suggest culture) Influenza Type B Zzzzeus9373-06-19 04:11:00* Test Item Value Reference Range Interpretation Comments FLU B ----- (test code = FLUB) NEGATIVE (could be belo w detectable levels, suggest culture) Basic Metabolic Lfsmg0942-57-72 04:11:00* Test Item Value Reference Range Interpretation [...] in Serum or Plasma (test code = 08599- 6) 8.2 mg/dL 8.5-10.1 L Liver (Hepatic) Ciilipil2564-05-82 04:11:00* Test Item Value Reference Range Interpretation Comments Aspartate aminotransferase [Enzymatic ac tivity/volume] in Serum or Plasma by With P-5 (test code = 66438-9) 25 U/L 15-37 Alanine aminotransferase [Enzymatic acti [...] (BCP) dye binding meth (test code = 81042-2) 3.0 g/dL 3.4-5.0 L Globulin (test code = GLOB) 5.2 g/dL 2.3-3.5 H Albumin/Globulin Ratio (test code = A/G) 0.6 1.1-1.8 L Lipase [Enzymatic activity/volume] in Serum or Gxxolt1189-82-44 04:11:00* Test Item Value Reference Range Interpretation Comments Lipase [Enzymatic activity/volume] in Serum or Plasma (test code = 3040-3) 327 U/L 73-393 Streptococcus group A screen rngqj1607-71-28 04:10:00* Test Item Value Reference Range Interpretation Comments Streptococcus group A screen rapid (test code = LKI1188) NEGATIVE Urine test at point of mdqb3415-32-19 03:44:00* Test Item Value Reference Range Interpretation Comments Urine Test (test code = UPG) NEG NEG Urine specific gravity measurement (test code = 2965-2) 1.025 1.005-1.030 Tested by: jtb BLOOD: 1+ GLUCOSE: NEG KETONES: 2+ LEUKOCYTES: TRACE NITRITE: NEG PH: 5.5 PROTEIN: 2+ jtb NEG jtb 1+ NEG 2+ TRACE NEG 5.5 2+ Y 1.025Urine dipstick testing at pijzo-ll-wtgt5518-02-25 03:44:00* Test Item Value Reference Range Interpretation Comments Urine glucose detection (test code = 2349-9) Negative NEG Urine Ketones (test code = UKET) 2+ NEG AA Urine blood detection (test code = 35082-7) 1+ NEG AA Urine pH (test code = 2756-5) 5.5 5.0-7.0 Urinalysis with microscopy (test code = 50460-1) 2+ NEG AA Urine Nitrate (test code = UNIT) NEGATIVE NEG Urine Leukocyte Esterase (test code = UESTR) TRACE NEG AA Tested by: jtb BLOOD: 1+ GLUCOSE: NEG KETONES: 2+ LEUKOCYTES: TRACE NITRITE: NEG PH: 5.5 PROTEIN: 2+ jtb NEG jtb 1+ NEG 2+ TRACE NEG 5.5 2+ Y 1.025
--- OUTSIDE RECORDS SUMMARY | 2020-01-05 13:34 | XMS REPORT | Clinical Summary ---
Author Author KORINA [employer] Organization [facility] Address Unknown Phone Unavailable Care Team Providers Care Volunteer Services Specialist Name Role Phone PCP Unavailable Allergies No Known Allergies Medications End Date Status Medication Sig Dispensed Refills Start Date Active yqjmsgbu-rkpt-uzn-folic Take 1 tablet 0 acid by mouth (PDRABLCPLYUW-MSBX-OCMWJR daily. LS-FOLIC ACID) 3,500-18-0.4 unit-mg-mg Chew Active [...] Advance Directives For more information, please contact: [facility] [address] [place] [address] [phone] Date Inactivated Comments Code Status Date Activated 08/07/2018 4:46 PM Full Code 08/01/2018 8:34 AM This code status was determined by: Patient
== END 2019-12-27 11:18 | disposition home or self-care (01) | DRG 418 ==
LOC: ER 01:10 → ERHOLD 04:57 → INTOOBSV 04:57 → MED/SURG 06:08 → OBSVTOIN 12-27 08:05
PROVIDERS: ADMIT Surgery; ATTEND Surgery
PROC: 0FT44ZZ Resection of Gallbladder, Percutaneous Endoscopic Approach (ICD-10-PCS; principal; 2019-12-25 12:00)
DX: K85.10 Biliary acute pancreatitis without necrosis or infection (principal); N39.0 Urinary tract infection, site not specified; K80.12 Calculus of gallbladder with acute and chronic cholecystitis without obstruction; Z98.84 Bariatric surgery status; K82.8 Other specified diseases of gallbladder; D64.9 Anemia, unspecified; Z11.59 Encounter for screening for other viral diseases
CPT/HCPCS: 36415; 74181; 76705; 80053; 81001; 81025; 82150; 82607; 82728; 82746; 83540; 83690; 84466; 85025; 85045; 88304; 93005; 96361; 99284; G0378; J0500; J1100; J1170; J1885; J2001; J2250; J2270; J2405; J2543; J2710; J3010; J3420; J7030; U0002